=== PATIENT | female | born 1970 | race African-American/Black ===

== ENCOUNTER 2019-07-18 07:42 | Inpatient (IN) | payer OTHER, SELFPAY ==
[2019-07-18] VITALS (11 sets, daily range): BP systolic 109–130; BP diastolic 60–92; PULSE 74–86; RESP 18–60; TEMP 36.4–37.6; O2SAT 91–99; BMI 33.8
--- NOTE | ~2019-07-18 | XR_ITS ---
EXAMINATION: XR chest 1V portable DATE: 07/25/2019 06:15 INDICATION: Pneumonia TECHNIQUE: frontal view of the chest was obtained. COMPARISON: Chest radiograph dated 07/24/2019 FINDINGS: There appears be slight improvement in patchy bilateral airspace opacities throughout both lungs rela tively sparing the apices. No pleural effusion or pneumothorax. The cardiomediastinal silhouette is n ormal. Cholecystectomy clips in right upper quadrant. Additional postoperative change in left upper q uadrant, possibly sleeve gastrectomy. IMPRESSION: 1. Slight improvement in diffuse bilateral patchy airspace disease consistent with pneumonia. Reviewed, dictated and finalized at location A. IMPRESSION: 1. Slight improvement in diffuse bilateral patchy airspace disease consistent w ith pneumonia.
--- NOTE | ~2019-07-18 | XR_ITS ---
XR chest 1V portable 07/22/2019 07:33 Indication: Pneumonia. Cough and fever. Procedure: AP portable chest Comparison: Comparison to multiple prior studies sequentially, with oldest reviewed study dated 08/07. Findings: Heart size normal. There has been progression of diffuse bilateral airspace disease. No ple ural effusion or pneumothorax. No acute osseous abnormality. Impression: 1: Progression of diffuse bilateral airspace disease, consistent with pneumonia. Reviewed, dictated and finalized at location A. Impression: 1: Progression of diffuse bilateral airspace disease, consistent with pneumonia .
--- NOTE | ~2019-07-18 | XR_ITS ---
EXAMINATION: XR chest 1V portable DATE: 07/18/2019 08:16 INDICATION: Shortness of breath TECHNIQUE: frontal view of the chest was obtained. COMPARISON: Chest radiograph dated 08/07/[address] abdomen and pelvis dated 06/27/2018 FINDINGS: Scattered bilateral patchy airspace opacities with perihilar and lower lung predominance. No pleural effusion or pneumothorax. The cardiomediastinal silhouette is normal. Cholecystectomy clips in the ri ght upper quadrant. Additional surgical clips in the epigastric region likely related to prior sleeve gastrectomy. IMPRESSION: 1. Bilateral lung disease which could represent pulmonary edema, pneumonia, atelectasis or some combi nation thereof. Reviewed, dictated and finalized at location A. IMPRESSION: 1. Bilateral lung disease which could represent pulmonary edema, pneumonia, ate lectasis or some combination thereof.
--- NOTE | ~2019-07-18 | XR_ITS ---
EXAMINATION: XR chest 1V portable DATE: 07/24/2019 05:58 INDICATION: COVID-19 pneumonia. TECHNIQUE: A single frontal view of the chest was obtained. COMPARISON: Chest single view 07/23/2019 FINDINGS: There are patchy airspace opacities throughout the lungs bilaterally. No pleural effusion o r pneumothorax. The heart size is normal. There are surgical clips in the abdomen. IMPRESSION: 1. Diffuse lung disease with slight worsening, consistent with pneumonia versus acute respiratory dis tress syndrome (ARDS). Reviewed, dictated and finalized at location A. IMPRESSION: 1. Diffuse lung disease with slight worsening, consistent with pneumonia versus acute respiratory distress syndrome (ARDS).
--- NOTE | ~2019-07-18 | XR_ITS ---
EXAMINATION: XR chest 1V portable DATE: 07/21/2019 10:40 INDICATION: COVID-19 pneumonia. Shortness of breath, cough, and fever. TECHNIQUE: A single frontal view of the chest was obtained. COMPARISON: Chest single view 07/18/2019, chest CT 07/18/2019 FINDINGS: There are patchy airspace opacities involving all lung zones bilaterally. No pleural effusi on or pneumothorax. The heart size is normal. There are surgical clips in the abdomen. IMPRESSION: 1. Worsened diffuse lung disease, consistent with pneumonia. Reviewed, dictated and finalized at location A.
--- NOTE | ~2019-07-18 | XR_ITS ---
EXAMINATION: XR chest 1V portable DATE: 07/28/2019 06:02 INDICATION: COVID positive pneumonia. TECHNIQUE: frontal view of the chest was obtained. COMPARISON: Chest radiograph dated 07/26/2019 FINDINGS: No significant interval change in patchy bilateral airspace opacities throughout both lungs. No pleur al effusion or pneumothorax. The cardiomediastinal silhouette is normal. Surgical clips in the upper abdomen suggesting prior cholecystectomy and possible hiatal hernia repair. IMPRESSION: 1. Unchanged diffuse patchy bilateral airspace disease consistent with pneumonia, and/or pulmonary ed tashi. Reviewed, dictated and finalized at location A. IMPRESSION: 1. Unchanged diffuse patchy bilateral airspace disease consistent with pneumoni a, and/or pulmonary edema.
--- NOTE | ~2019-07-18 | CT_ITS ---
EXAMINATION: CTA chest PE protocol DATE: 07/18/2019 11:29 INDICATION: Shortness of breath, weakness, fever, chills, nausea and vomiting. TECHNIQUE: Computed tomography (CT) pulmonary angiogram of the chest was performed with 100 mL Omnipa que-350 intravenous contrast. Additional 3D reconstructions utilizing coronal maximum intensity proje ction (MIP) were performed. Automated exposure control and iterative reconstruction technique were em ployed. The dose-length product was 330.90 mGy-cm. COMPARISON: None FINDINGS: Good contrast opacification of the pulmonary arteries. There is mild streak artifact from dense contr ast in the superior vena cava and right atrium. Mild to moderate scattered respiratory motion artifac t most prominent at the lower lung zones where it results in decreased sensitivity in the segmental p ulmonary arteries and rendered evaluation of some of the smaller basilar subsegmental pulmonary arter ies essentially nondiagnostic. No pulmonary embolism. There are bilateral patchy groundglass opacitie s and consolidation throughout both lungs. No pleural effusion or pneumothorax. Heart size is normal. No pericardial effusion. Thoracic aorta is normal in caliber with no dissection. No pathologically e nlarged thoracic lymphadenopathy. Cholecystectomy clips in right upper quadrant. Incidentally noted a ccessory left hepatic artery arising from the left gastric artery. Postoperative change of prior slee ve gastrectomy. Bones are unremarkable. IMPRESSION: 1. No pulmonary embolism. Evaluation limited in the lower lobar segmental and more peripheral subsegm ental pulmonary arteries due to respiratory motion. 2. Bilateral patchy groundglass opacities and consolidation concerning for multifocal pneumonia. Appe arance would be typical for COVID-19. Reviewed, dictated and finalized at location A. IMPRESSION: 1. No pulmonary embolism. Evaluation limited in the lower lobar segmental and m ore peripheral subsegmental pulmonary arteries due to respiratory motion. 2. Bilateral patchy groundglass opacities and consolidation concerning for mult ifocal pneumonia. Appearance would be typical for COVID-19.
--- NOTE | ~2019-07-18 | XR_ITS ---
EXAMINATION: XR chest 1V portable DATE: 07/23/2019 08:16 INDICATION: COVID-19 pneumonia. TECHNIQUE: A single frontal view of the chest was obtained. COMPARISON: Chest single view 07/22/2019 FINDINGS: There are airspace opacities in all lung zones bilaterally. No pleural effusion or pneumoth orax. The heart size is normal. There are surgical clips in the abdomen. IMPRESSION: 1. Stable diffuse lung disease, consistent with pneumonia versus acute respiratory distress syndrome (ARDS). Reviewed, dictated and finalized at location A. IMPRESSION: 1. Stable diffuse lung disease, consistent with pneumonia versus acute respirat ory distress syndrome (ARDS).
--- NOTE | ~2019-07-18 | XR_ITS ---
XR chest 1V portable 07/26/2019 06:26 Indication: Pneumonia Procedure: AP portable chest Comparison: Comparison to multiple prior studies sequentially, with oldest reviewed study dated 07/21. Findings: Patchy diffuse bilateral airspace disease, unchanged. No significant pleural effusion or pn eumothorax. Heart size normal. No acute osseous abnormality. Impression: 1: Stable patchy bilateral airspace disease. Differential diagnosis includes edema, pneumonia and MO S. Reviewed, dictated and finalized at location A. Impression: 1: Stable patchy bilateral airspace disease. Differential diagnosis includes ed tashi, pneumonia and ARDS.
[2019-07-18 08:13] LABS: Basophils Percent Auto 0.2 % (0.2-1.2); Hematocrit 39.2 % (37.0-47.0); Hemoglobin 12.5 g/dL (12.0-15.0); Immature Granulocyte Absolute 0.03 K/mm3 (0.00-0.031); Immature Granulocyte Percent A 0.5 % (0-0.5); Lymphocytes Absolute Auto 0.69 K/mm3 (0.9-3.2); Lymphocytes Percent Auto 12.2 % (18.3-44.2); Mean Corpuscular HGB Conc 31.9 g/dl (32-36); Mean Corpuscular Hemoglobin 27.2 pg (26-34); Mean Corpuscular Volume 85.2 fl (80-100); Mean Platelet Volume 11.2 fl (7.4-10.4); Monocytes Absolute Auto 0.3 K/mm3 (0.1-0.6); Monocytes Percent Auto 4.4 % (2.6-8.5); Neutrophils Absolute Auto 4.7 K/mm3 (1.3-6.7); Neutrophils Percent Auto 82.7 % (45.5-73.1); Platelet Count Result 198 k/mm3 (150-375); Red Cell Distribution Width 13.7 % (11.5-14.5); White Blood Count 5.7 K/mm3 (4.5-10.0)
[2019-07-18 08:25] LABS: Blood Urea Nitrogen 14 mg/dL (7-17); Calcium 8.5 mg/dL (8.4-10.2); Carbon Dioxide 26 mmol/L (22-30); Chloride 105 mmol/L (98-107); Estimated Glomerular Filt Rate > 60; Glucose 110 mg/dL (65-105); Potassium 3.8 mmol/L (3.4-5.0); Sodium 137 mmol/L (137-145)
--- NOTE | 2019-07-18 08:45 | PC.NURSE ---
Patient reports she was seen at [facility] on [address] on 07/17/2019 and had COVID-19 test done. [facility] was called at this time and states that they do not have results yet. They expect results either late tonight or tomorrow (07/19/2019).
[2019-07-18] MEDS: ONDANSETRON INJ 4 MG/2 ML VIAL IV PUSH (09:04)
--- NOTE | 2019-07-18 09:12 | ECG_ITS ---
Measurements Intervals [place] Rate: 84 P: 49 W[place]: 156 QRS: 15 QRSD: 87 T: 17 QT: 348 QTc: 413 Interpretive Statements SINUS RHYTHM BASELINE WANDER- I, II, AVR, AVL, AVF, V4-V6 BORDERLINE ECG Electronically Signed On 07-18-2019 9:17:39 CDT by Andreas Lockwood D.O.
--- NOTE | 2019-07-18 10:05 | ED.GENADULT ---
HPI - General Adult General Chief complaint: Shortness of Breath/Dyspnea Stated complaint: SOB Time Seen by Provider: 07/18/19 07:47 Source: patient Mode of arrival: ambulatory Limitations: no limitations History of Present Illness HPI narrative: 48-year-old with no major medical problems here with complaints of shortness of breath, cough for past few days. Patient states that her daughter was diagnosed with COVID and she might have been exposed to COVID. Had outpatient testing done at [facility] yesterday. She denies any chest pain, nausea or vomiting. She states that she gets extremely short of breath with minimal walking. Onset (ago): day(s) Location: chest Radiation: non-radiation Severity: moderate Relieving factors: rest Exacerbating factors: movement Related Data Home Medications Medication Instructions Recorded Confirmed No Home Medications 07/18/19 07/18/19 Allergies Allergy/AdvReac Type Severity Reaction Status Date / Time No Known Allergies Allergy Verified 07/18/19 08:11 Review of Systems Review of Systems: All systems reviewed & are unremarkable except as noted in HPI and below Constitutional: Constitutional: Reports no additional constitutional complaints Eyes: Eyes: Reports no additional eye complaints ENT: Reports system reviewed and no additional complaints, except as documented Cardiovascular: Cardiovascular: Reports no additional cardiovascular complaints Respiratory: Respiratory: Reports as per HPI Gastrointestinal: Gastrointestinal: Reports no additional gastrointestinal complaints Musculoskeletal: Musculoskeletal: Reports no additional musculoskeletal complaints Integumentary/Breasts: Skin/Breast: Reports system reviewed and no additional complaints, except as docu Neurologic: Reports system reviewed and no additional complaints, except as documented Psychiatric: Psychiatric: Reports no additional psychiatric complaints PMFSH Social History Social History Gender identity (if verbalized by the patient): Female Exam Narrative: Exam Narrative: GENERAL: Well-appearing, well-nourished, and in no acute distress. HEAD: Normocephalic, atraumatic. EYES: PERRLA and EOMI. ENT: Nares clear, no rhinorrhea or epistaxis. Mucous membranes moist. NECK: Supple. CHEST: Tachypneic coarse breath sounds bilaterally. HEART: Regular rate and rhythm. No murmur heard. Normal peripheral pulses. ABDOMEN: Soft, nontender, nondistended, normal active bowel sounds. EXTREMITIES: Normal range of motion. No edema. SKIN: Warm, dry, no rash. NEURO: No focal deficits. Alert and oriented x3. PSYCH: Normal mood and affect. Course Course Emergency Course: Inform patient about her chest x-ray findings will admit her to the hospital. Await for call with results. Meanwhile I will start her on IV Zithromax. Vital Signs Vital signs: Vital Signs Temperature 37.5 C 07/18/19 07:47 Pulse Rate 82 07/18/19 07:47 Respiratory Rate 39 H 07/18/19 07:47 Blood Pressure 112/72 07/18/19 07:47 Pulse Oximetry 95 07/18/19 07:47 Temperature 37.6 C 07/18/19 09:09 Pulse Rate 80 07/18/19 09:09 Respiratory Rate 60 H 07/18/19 09:15 Blood Pressure 110/81 07/18/19 09:09 Pulse Oximetry 91 07/18/19 09:15 Medical Decision Making Vital Signs Vital Signs: Vital Signs Temperature 37.5 C 07/18/19 07:47 Pulse Rate 82 07/18/19 07:47 Respiratory Rate 39 H 07/18/19 07:47 Blood Pressure 112/72 07/18/19 07:47 Pulse Oximetry 95 07/18/19 07:47 Temperature 37.6 C 07/18/19 09:09 Pulse Rate 80 07/18/19 09:09 Respiratory Rate 60 H 07/18/19 09:15 Blood Pressure 110/81 07/18/19 09:09 Pulse Oximetry 91 07/18/19 09:15 Lab Data Result diagrams: 07/18/19 07:59 07/18/19 07:59 Labs: Lab Results 07/18/19 07/18/19 Range/Units 07:59 07:59 WBC 5.7 (4.5-10.0) K/mm3 RBC 4.60 (4.2-5.4) M/mm3 Hgb 12.5 (12.0-15.0) g/dL
[2019-07-18 10:45] LABS: D Dimer 1.29 ug/mL (<0.48)
--- NOTE | 2019-07-18 10:46 | PC.NURSE ---
Patient asleep in stretcher upon entering room for reassessment, she woke easily to verbal stimuli.
--- NOTE | 2019-07-18 11:17 | PC.NURSE ---
Patient to CT scan at this time.
[2019-07-18] MEDS: SODIUM CHLORIDE 0.9% IV 1,000 ML 125 ML IV CONT (11:50)
--- NOTE | 2019-07-18 11:52 | PC.NURSE ---
Infusion rate decreased due to patient discomfort, she is tolerating new rate well at this time.
--- NOTE | 2019-07-18 12:36 | ADMGEN ---
This patient, Melinda Belle, was admitted to Intensive Care Unit-5. Patient/family oriented to hospital policies and general routines including ID bracelet, bed and alarms, visiting hours, pain management, procedures, bathroom and other care routines, personal items, smoking policy, room service/diet, and visiting hours. Valuables list has been completed. Information on how to activate the Rapid Response Team has been discussed. Patient/Family are encouraged to report perceived risks to care and to ask questions if they do not understand what they are told or what they should do.
[2019-07-18 14:01] LABS: Lactate Dehydrogenase 1155 U/L (313-618)
--- NOTE | 2019-07-18 15:43 | PM.IMHP ---
H&P: HPI History of Present Illness Chief complaint: Pneumonia Narrative: Date and Time of History and Physical: July 18, 2019 at 3:15 p.m.. Date and Time of Admission Order: July 18, 2019 at 10:18 a.m.. Chief Complaint: Back pain, fever, cough, shortness of breath. History of Present Illness: Melinda Belle is a 48 year old female with no chronic health problems who presented to the emergency room with onset of illness beginning last Saturday, July 13, 2019. Patient reports she initially noted left low back pain along with dysuria. Two days later she developed cough along with shortness of breath and fever up to 102. She additionally had nausea. She reports she had 1 episode of vomiting last night. 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 Patient reports her daughter had been with her from , July 10, 2019, and recently tested positive for coronavirus. With patient having symptoms herself, she was tested at [facility] yesterday but does not know her coronavirus test results. Patient presented here with increasing shortness of breath with minimal activity. Cough is still present but not productive. No chest pain or chest pressure. In the emergency room, she was noted to be tachypneic as well as low oxygen saturation to 91% with minimal activity. Chest x-ray with bilateral lung disease. After my discussion with the emergency room physician, apparently D-dimer was checked in elevated with CTA chest ordered by ER physician with no pulmonary embolism but bilateral patchy ground-glass opacities and consolidation concerning for multifocal pneumonia. Given high risk for COVID infection, she was admitted for further evaluation and treatment. Review of Systems Review of Systems: All systems reviewed & are unremarkable except as noted in HPI and below Constitutional: Constitutional: Reports fatigue and Reports fever(s) Eyes: Eyes: Denies blurry vision and Denies diplopia ENT: Denies nasal congestion and Denies nasal discharge Cardiovascular: Cardiovascular: Denies chest pain, Denies lightheadedness and Denies palpitations Respiratory: Respiratory: Reports cough and Reports dyspnea Gastrointestinal: Gastrointestinal: Denies abdominal pain, Reports nausea and Denies vomiting Genitourinary: Genitourinary: Denies hematuria, Denies nocturia and Reports dysuria Musculoskeletal: Musculoskeletal: Reports back pain (left lumbar pain) Integumentary/Breasts: Skin/Breast: Denies rash Neurologic: Denies vertigo and Denies headache(s) Psychiatric: Psychiatric: Denies anxiety, Denies confusion and Denies depression Endocrine: Endocrine: Reports no additional endocrine complaints Hematologic/Lymphatic: Hematologic/Lymphatic: Reports no additional hematologic/lymphatic complaints Allergic/Immunologic: Allergic/Immunologic: Reports no additional allergic/immunologic complaints PMFSH Surgical History Surgical History Gastric bypass status for obesity Gastric Sleeve H/O: hysterectomy History of cholecystectomy Family History Family History Father No problems noted. Mother No problems noted. Daughter No problems noted. Social History Social History Social History: Patient is single. She does have to adult daughters. Never smoker. Occasional alcohol use. She is a full code. 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 Smoking status: Never smoker Alcohol intake: current Drinks per week: 3 Alcohol use details: Occasional alcohol Substance use: never Living arrangements: with family Occupation/Education: occupation Additional occupation/education comments: Dispatcher for [employer] Gender identity (if verbalized by the patient): Female Spiritual care concerns: No Agree to blood products: Yes Meds Home Medicat
[2019-07-18] MEDS: SODIUM CHLORIDE 0.9% IV 1,000 ML 75 ML IV CONT (23:43)
[2019-07-18] MEDS: MORPHINE SULFATE 4 MG/ML INJ IV PUSH (23:43)
[2019-07-19] VITALS (15 sets, daily range): BP systolic 119–134; BP diastolic 74–87; PULSE 81–98; RESP 20–36; TEMP 37.2–38; O2SAT 93–98
[2019-07-19 00:10] LABS: Add Urine Microscopic? YES; Appearance Urine Clear (Clear); Bacteria Urine Trace /hpf; Bilirubin Urine 1+ (Negative); Blood Urine Negative (Negative); Color Urine Yellow (Yellow); Glucose Urine UA Negative (Negative); Ketones Urine Trace mg/dL (Negative); Leukocyte Esterase Ur Negative LEU/UL (NEGATIVE); Mucus Urine Rare /lpf; Nitrate Urine Negative (Negative); Protein Urine 1+ mg/dL (Negative); RBC Urine 0-2 /hpf (0-2); Squamous Epithelial Cell Urine Occasional /hpf (Few); WBC Urine 0-3 /hpf (0-3)
[2019-07-19 01:46] LABS: Specific Grav Ur 1.045 (1.001-1.035)
[2019-07-19 03:36] LABS: Mean Corpuscular HGB Conc 32.4 g/dl (32-36); Mean Corpuscular Hemoglobin 27.5 pg (26-34); Mean Platelet Volume 10.7 fl (7.4-10.4); Platelet Count Result 209 k/mm3 (150-375); Red Cell Distribution Width 13.6 % (11.5-14.5); White Blood Count 4.3 K/mm3 (4.5-10.0)
[2019-07-19 03:51] LABS: Alanine Aminotransferase 25 U/L (4-35); Albumin Level 3.1 g/dL (3.5-5.1); Alkaline Phosphatase 79 U/L (38-126); Aspartate Amino Transferase 53 U/L (14-36); Bilirubin,Total 0.7 mg/dL (0.2-1.3); Blood Urea Nitrogen 10 mg/dL (7-17); CRP 7.6 mg/dL (<1.0); Calcium 7.6 mg/dL (8.4-10.2); Carbon Dioxide 23 mmol/L (22-30); Chloride 109 mmol/L (98-107); Creatine Kinase 80 U/L (30-135); Estimated Glomerular Filt Rate > 60; Glucose 97 mg/dL (65-105); Lactate Dehydrogenase 1269 U/L (313-618); Potassium 4.2 mmol/L (3.4-5.0); Sodium 136 mmol/L (137-145)
[2019-07-19] MEDS: PROMETHAZINE HCL 25 MG/ML AMPUL 12.5 MG IV PUSH (09:30)
[2019-07-19] MEDS: SODIUM CHLORIDE 0.9% IV 1,000 ML 75 ML IV CONT (11:48)
--- NOTE | 2019-07-19 12:27 | PM.IMPN ---
Progress Note: A&P Assessment and Plan (1) Pneumonia: Qualifiers: Laterality: bilateral Lung location: unspecified part of lung Pneumonia type: due to unspecified organism Qualified Code(s): J18.9 - Pneumonia, unspecified organism Code(s): J18.9 - Pneumonia, unspecified organism Status: Acute Assessment and Plan: Chest x-ray with bilateral airspace disease. CTA chest with ground-glass opacities bilaterally and consolidation consistent with multifocal pneumonia with findings consistent with COVID-19 infection. COVID-19 test results received from [facility] today and positive. IV azithromycin was given in the emergency room but will not continue with COVID-19 testing positive. Remains on IV ceftriaxone for other reasons. Now on 2 L oxygen. Continue albuterol HFA as needed. Add incentive spirometry. Continue isolation. Will continue other supportive care. Telemetry reviewed on 07/19/2019 with sinus rhythm. (2) COVID-19: Code(s): U07.1 - COVID-19 Status: Acute Assessment and Plan: Testing initiated at [facility] on 07/17/2019 with results now available and positive. Ferritin and LDH remain elevated but no significant increase from yesterday. CRP mildly elevated at 7.6 today. Will follow acute phase reactants periodically. Continue supportive care. (3) Dehydration: Code(s): E86.0 - Dehydration Status: Acute Assessment and Plan: Result of acute illness. Will continue IV fluids but at lower rate with COVID-19 infection. Continue to monitor. (4) Dysuria: Code(s): R30.0 - Dysuria Status: Acute Assessment and Plan: U/A more consistent with dehydration but will leave IV ceftriaxone in place while awaiting urine culture. (5) DVT prophylaxis: Code(s): Z29.9 - Encounter for prophylactic measures, unspecified Status: Acute Assessment and Plan: SCDs. Early ambulation. Time Spent With Patient Time with patient: 15 - 25 minutes Subjective Date/time seen: 07/19/19 12:27 Interval history: Date of Service: 07/19/2019. Admitted with pneumonia, COVID-19 infection, dehdyration. Complains of sore throat, difficulty swallowing, cough, shortness of breath and back pain today. Tired. Review of Systems Review of Systems: Narrative: Does not feel well. Constitutional: Constitutional: Reports fatigue and Reports fever(s) (low grade) ENT: Reports dysphagia and Reports sore throat Cardiovascular: Cardiovascular: Denies chest pain Respiratory: Respiratory: Reports cough and Reports dyspnea Gastrointestinal: Gastrointestinal: Denies abdominal pain, Denies nausea and Denies vomiting Genitourinary: Genitourinary: Denies dysuria Musculoskeletal: Musculoskeletal: Reports back pain Integumentary/Breasts: Skin/Breast: Denies rash Neurologic: Denies headache(s) Psychiatric: Psychiatric: Denies confusion Exam Narrative: Exam Narrative: Awake but appears tired today. Const: General: no acute distress HENMT: Mouth: Yes moist mucous membranes Neck: Neck: supple Lymphatic: lymphadenopathy not noted Resp: Auscultation: no rales, no wheezes and diminished lung sounds Cardio: Rate: regular rate Rhythm: regular rhythm GI: Inspection: non-distended GI Palp: Yes Soft to palpation and No Tenderness to palpation present (GI) Auscultation: normal bowel sounds Skin: General skin exam: no rashes or lesions noted Neuro: Cognition (Neuro): normal cognition Speech: normal speech Extrem: General: no edema Psych: Mental Status: mental status grossly normal Affect: normal affect Objective Data Vital Signs Vital Signs: Vital Signs - 24 hr 07/18/19 12:29 07/18/19 13:56 07/18/19 16:00 Temperature 98.2 F 98.6 F Pulse Rate 74 79 79 Respiratory Rate 18 20 Blood Pressure 121/82 120/76 Pulse Oximetry 97 96 07/18/19 17:49 07/18/19 20:00 07/19/19 00:00 Temperature 98.9 F 98.9 F Pulse Rate 86
[2019-07-20] VITALS (9 sets, daily range): BP systolic 97–133; BP diastolic 63–77; PULSE 79–106; RESP 21–38; TEMP 36.8–37.2; O2SAT 94–96
[2019-07-20 06:43] LABS: Hematocrit 38.1 % (37.0-47.0); Hemoglobin 12.6 g/dL (12.0-15.0); Mean Corpuscular HGB Conc 33.1 g/dl (32-36); Mean Corpuscular Hemoglobin 27.4 pg (26-34); Mean Corpuscular Volume 82.8 fl (80-100); Platelet Count Result 306 k/mm3 (150-375); Red Cell Distribution Width 13.5 % (11.5-14.5); White Blood Count 5.1 K/mm3 (4.5-10.0)
[2019-07-20 06:55] LABS: Alanine Aminotransferase 30 U/L (4-35); Albumin Level 3.5 g/dL (3.5-5.1); Alkaline Phosphatase 103 U/L (38-126); Aspartate Amino Transferase 65 U/L (14-36); Bilirubin,Total 0.8 mg/dL (0.2-1.3); Blood Urea Nitrogen 6 mg/dL (7-17); Calcium 8.2 mg/dL (8.4-10.2); Carbon Dioxide 26 mmol/L (22-30); Chloride 105 mmol/L (98-107); Estimated Glomerular Filt Rate > 60; Glucose 110 mg/dL (65-105); Potassium 3.7 mmol/L (3.4-5.0); Sodium 136 mmol/L (137-145)
--- NOTE | 2019-07-20 09:47 | PM.IMPN ---
Progress Note: A&P Assessment and Plan (1) Pneumonia: Qualifiers: Laterality: bilateral Lung location: unspecified part of lung Pneumonia type: due to unspecified organism Qualified Code(s): J18.9 - Pneumonia, unspecified organism Code(s): J18.9 - Pneumonia, unspecified organism Status: Acute Assessment and Plan: Chest x-ray with bilateral airspace disease. CTA chest with ground-glass opacities bilaterally and consolidation consistent with multifocal pneumonia with findings consistent with COVID-19 infection. COVID-19 test results received from [facility] on 07/19/2019 and positive. IV azithromycin was given in the emergency room but not continued with COVID-19 testing positive. Remains on IV ceftriaxone for urinary issues as noted below. Still requiring 2 L oxygen by nasal cannula but has not increased oxygen requirements. Continue albuterol HFA as needed. Patient is using incentive spirometer. Continue isolation. Telemetry removed on 07/20/2019 with sinus rhythm. Will move to medical floor as stable. (2) COVID-19: Code(s): U07.1 - COVID-19 Status: Acute Assessment and Plan: Testing initiated at [facility] on 07/17/2019 with results now available and positive. Ferritin and LDH remain elevated but no significant increase from admission. CRP mildly elevated at 7.6 on 07/19/2019. Will follow acute phase reactants periodically. Continue supportive care. (3) Dehydration: Code(s): E86.0 - Dehydration Status: Acute Assessment and Plan: Result of acute illness. Continues to improve. Will continue IV fluids but at lower rate with COVID-19 infection. Continue to monitor. (4) Dysuria: Code(s): R30.0 - Dysuria Status: Acute Assessment and Plan: U/A more consistent with dehydration but will leave IV ceftriaxone in place while awaiting urine culture results. (5) DVT prophylaxis: Code(s): Z29.9 - Encounter for prophylactic measures, unspecified Status: Acute Assessment and Plan: SCDs. Early ambulation. Time Spent With Patient Time with patient: 15 - 25 minutes Subjective Date/time seen: 07/20/19 09:47 Interval history: Date of Service: 07/20/2019. Admitted with pneumonia, COVID-19 infection, dehdyration. Feels a little bit better today. Still has sore throat, cough and shortness of breath. Still also has back pain. All symptoms are slightly better. No nausea or vomiting. Review of Systems Constitutional: Constitutional: Reports fatigue and Reports fever(s) (low grade yesterday but none so far today) ENT: Reports dysphagia and Reports sore throat Cardiovascular: Cardiovascular: Denies chest pain Respiratory: Respiratory: Reports cough and Reports dyspnea Gastrointestinal: Gastrointestinal: Denies abdominal pain, Reports dysphagia, Denies nausea and Denies vomiting Genitourinary: Genitourinary: Denies hematuria, Denies nocturia and Denies dysuria Musculoskeletal: Musculoskeletal: Reports back pain Integumentary/Breasts: Skin/Breast: Denies rash Neurologic: Denies headache(s) Psychiatric: Psychiatric: Denies confusion Exam Narrative: Exam Narrative: More awake today but still appears tired. Const: General: no acute distress HENMT: Mouth: Yes moist mucous membranes Neck: Neck: supple Lymphatic: lymphadenopathy not noted Resp: Auscultation: no rales, no wheezes and diminished lung sounds Cardio: Rate: regular rate Rhythm: regular rhythm GI: Inspection: non-distended GI Palp: Yes Soft to palpation and No Tenderness to palpation present (GI) Auscultation: normal bowel sounds : Other: not examined Skin: General skin exam: normal color Neuro: General: No confusion Cognition (Neuro): normal cognition Speech: normal speech Motor exam (neuro): Normal motor muscle tone present throughout Extrem: General: no edema Psych: Mental Status: mental status grossly normal Affe
--- NOTE | 2019-07-20 11:13 | PC.NURSE ---
This patient, Melinda Belle, was transferred to [ [facility] m/s] on 07/20/19 at 1113. Personal belongings sent with patient. Belongings list checked and signed with receiving [ ]. Report given to [katia membreno ]. Appropriate documentation sent with patient.
--- NOTE | 2019-07-20 11:38 | PC.NURSE ---
Addendum entered by Jaylyn Olson RN 07/20/19 14:15: patient received from ICU Original Note: This patient, Melinda Belle, was received from [ ] on 07/20/19 at 1055. Personal belongings list checked and signed. Patient/family oriented to unit policies and routines
[2019-07-20] MEDS: SODIUM CHLORIDE 0.9% IV 1,000 ML 75 ML IV CONT (13:40)
[2019-07-20] MEDS: ACETAMINOPHEN 325 MG TABLET 650 MG PO (17:43)
[2019-07-20] MEDS: MORPHINE SULFATE 4 MG/ML INJ IV PUSH (20:41)
[2019-07-21] VITALS (10 sets, daily range): BP systolic 135–160; BP diastolic 75–95; PULSE 85–96; RESP 16–28; TEMP 36.7–37.5; O2SAT 85–95
[2019-07-21] MEDS: SODIUM CHLORIDE 0.9% IV 1,000 ML 75 ML IV CONT (04:09)
[2019-07-21] MEDS: MORPHINE SULFATE 4 MG/ML INJ IV PUSH (04:10)
[2019-07-21] MEDS: ACETAMINOPHEN 325 MG TABLET 650 MG PO (05:59)
[2019-07-21 06:40] LABS: Blood Urea Nitrogen 7 mg/dL (7-17); Calcium 7.6 mg/dL (8.4-10.2); Carbon Dioxide 18 mmol/L (22-30); Chloride 107 mmol/L (98-107); Creatine Kinase 54 U/L (30-135); Estimated Glomerular Filt Rate > 60; Glucose 93 mg/dL (65-105); Lactate Dehydrogenase 1878 U/L (313-618); Potassium 4.4 mmol/L (3.4-5.0); Sodium 133 mmol/L (137-145)
[2019-07-21 08:02] LABS: CRP 26.1 mg/dL (<1.0)
[2019-07-21 10:42] LABS: Basophils Percent Auto 0.2 % (0.2-1.2); Eosinophils Percent Auto 0.1 % (0-4.4); Hematocrit 36.5 % (37.0-47.0); Hemoglobin 11.9 g/dL (12.0-15.0); Immature Granulocyte Absolute 0.12 K/mm3 (0.00-0.031); Immature Granulocyte Percent A 1.4 % (0-0.5); Lymphocytes Absolute Auto 0.74 K/mm3 (0.9-3.2); Lymphocytes Percent Auto 8.9 % (18.3-44.2); Mean Corpuscular HGB Conc 32.6 g/dl (32-36); Mean Corpuscular Hemoglobin 27.3 pg (26-34); Mean Corpuscular Volume 83.7 fl (80-100); Mean Platelet Volume 10.2 fl (7.4-10.4); Monocytes Absolute Auto 0.4 K/mm3 (0.1-0.6); Neutrophils Percent Auto 84.4 % (45.5-73.1); Platelet Count Result 332 k/mm3 (150-375); Red Blood Count 4.36 M/mm3 (4.2-5.4); Red Cell Distribution Width 13.5 % (11.5-14.5); White Blood Count 8.3 K/mm3 (4.5-10.0)
[2019-07-21 10:55] LABS: Alanine Aminotransferase 25 U/L (4-35); Albumin Level 3.2 g/dL (3.5-5.1); Alkaline Phosphatase 98 U/L (38-126); Aspartate Amino Transferase 46 U/L (14-36); Bilirubin,Total 0.8 mg/dL (0.2-1.3); Blood Urea Nitrogen 7 mg/dL (7-17); Calcium 8.2 mg/dL (8.4-10.2); Carbon Dioxide 25 mmol/L (22-30); Chloride 106 mmol/L (98-107); Estimated Glomerular Filt Rate > 60; Glucose 107 mg/dL (65-105); Sodium 136 mmol/L (137-145)
[2019-07-21 11:20] LABS: Potassium 3.7 mmol/L (3.4-5.0)
[2019-07-21] MEDS: ENOXAPARIN 80 MG/0.8 ML SYRINGE SUB-Q (11:51)
--- NOTE | 2019-07-21 17:04 | PM.IMPN ---
Progress Note: A&P Assessment and Plan (1) Pneumonia: Qualifiers: Laterality: bilateral Lung location: unspecified part of lung Pneumonia type: due to unspecified organism Qualified Code(s): J18.9 - Pneumonia, unspecified organism Code(s): J18.9 - Pneumonia, unspecified organism Status: Acute Assessment and Plan: Chest x-ray with bilateral airspace disease. CTA chest with ground-glass opacities bilaterally and consolidation consistent with multifocal pneumonia with findings consistent with COVID-19 infection. COVID-19 test results received from [facility] on 07/19/2019 and positive. IV azithromycin was given in the emergency room but not continued with COVID-19 testing positive. Remains on IV ceftriaxone for urinary issues as noted below. Still requiring 2 L oxygen by nasal cannula but has not increased oxygen requirements. Continue albuterol HFA as needed. Patient is using incentive spirometer. Continue isolation. Telemetry removed on 07/20/2019 with sinus rhythm. Will move to medical floor as stable. Date of Service: 07/20/2019. Admitted with pneumonia, COVID-19 infection, dehdyration. Today patient complains of cough shortness of breath and chills repeat x-ray shows worsening pneumonia, however saturation is 93% on room air see has a low-grade fever and 99 will add his home eye seen with Lisandra will continue to monitor and provide supportive care (2) COVID-19: Code(s): U07.1 - COVID-19 Status: Acute Assessment and Plan: Testing initiated at [facility] on 07/17/2019 with results now available and positive. Ferritin and LDH remain elevated but no significant increase from admission. CRP mildly elevated at 7.6 on 07/19/2019. Will follow acute phase reactants periodically. Continue supportive care. (3) Dehydration: Code(s): E86.0 - Dehydration Status: Acute Assessment and Plan: Result of acute illness. Continues to improve. Will continue IV fluids but at lower rate with COVID-19 infection. Continue to monitor. (4) Dysuria: Code(s): R30.0 - Dysuria Status: Acute Assessment and Plan: U/A more consistent with dehydration but will leave IV ceftriaxone in place while awaiting urine culture results. (5) DVT prophylaxis: Code(s): Z29.9 - Encounter for prophylactic measures, unspecified Status: Acute Assessment and Plan: Patient has a mildly elevated D-dimer and lymphopenia patient started on Lovenox 1 milligram/kilogram q.day Subjective Date/time seen: 07/21/19 17:04 Interval history: Date of Service: 07/20/2019. Admitted with pneumonia, COVID-19 infection, dehdyration. Today patient complains of cough shortness of breath and chills repeat x-ray shows worsening pneumonia, however saturation is 93% on room air see has a low-grade fever and 99 will add his home eye seen with Rocyee will continue to monitor and provide supportive care Review of Systems Review of Systems: All systems reviewed & are unremarkable except as noted in HPI and below Exam Narrative: Exam Narrative: Patient was seen in the room but not examine she appears clinically stable, temperature is 99.1? pulse is 96 respiratory 22 pulse ox is 93% on room air a blood pressure is 136/96 Const: General: comfortable and no acute distress HENMT: General nose exam: Normal nares present Neck: Other: No retraction Resp: Effort & Inspection: normal respiratory effort Skin: General skin exam: normal color Neuro: Speech: normal speech Extrem: General: normal to inspection Psych: Affect: Anxious affect present Objective Data Vital Signs Vital Signs: Vital Signs - 24 hr 07/20/19 20:00 07/20/19 20:45 07/21/19 02:00 Temperature 98.6 F 99.2 F Pulse Rate 86 88 90 Respiratory Rate 26 H 24 H 24 H Blood Pressure 122/72 135/75 Pulse Oximetry 96 94 07/21/19 06:00 07/21/19 08:00 07/21/19 08:44 Temperature 99.5 F 98.0 F Pulse
[2019-07-21] MEDS: PROMETHAZINE HCL 25 MG/ML AMPUL 12.5 MG IV PUSH (20:24)
[2019-07-22] VITALS (16 sets, daily range): BP systolic 130–168; BP diastolic 87–105; PULSE 87–100; RESP 22–44; TEMP 36.9–37.8; O2SAT 90–96
[2019-07-22] MEDS: MORPHINE SULFATE 4 MG/ML INJ IV PUSH ×5 (02:40→20:17)
[2019-07-22] MEDS: SODIUM CHLORIDE 0.9% IV 1,000 ML 75 ML IV CONT (02:42)
[2019-07-22 06:08] LABS: Basophils Percent Auto 0.3 % (0.2-1.2); Eosinophils Percent Auto 0.1 % (0-4.4); Hematocrit 34.9 % (37.0-47.0); Hemoglobin 11.3 g/dL (12.0-15.0); Immature Granulocyte Absolute 0.29 K/mm3 (0.00-0.031); Immature Granulocyte Percent A 3.8 % (0-0.5); Lymphocytes Absolute Auto 0.85 K/mm3 (0.9-3.2); Mean Corpuscular HGB Conc 32.4 g/dl (32-36); Mean Corpuscular Volume 83.5 fl (80-100); Monocytes Absolute Auto 0.3 K/mm3 (0.1-0.6); Monocytes Percent Auto 3.8 % (2.6-8.5); Neutrophils Absolute Auto 6.3 K/mm3 (1.3-6.7); Platelet Count Result 388 k/mm3 (150-375); Red Blood Count 4.18 M/mm3 (4.2-5.4); Red Cell Distribution Width 13.4 % (11.5-14.5); White Blood Count 7.7 K/mm3 (4.5-10.0)
[2019-07-22 06:25] LABS: Alanine Aminotransferase 21 U/L (4-35); Alkaline Phosphatase 100 U/L (38-126); Aspartate Amino Transferase 41 U/L (14-36); Bilirubin,Total 0.7 mg/dL (0.2-1.3); Blood Urea Nitrogen 7 mg/dL (7-17); Calcium 7.7 mg/dL (8.4-10.2); Carbon Dioxide 25 mmol/L (22-30); Chloride 107 mmol/L (98-107); Estimated Glomerular Filt Rate > 60; Glucose 97 mg/dL (65-105); Potassium 3.7 mmol/L (3.4-5.0); Sodium 136 mmol/L (137-145)
--- NOTE | 2019-07-22 10:07 | ECG_ITS ---
Measurements Intervals [place] Rate: 91 P: 61 AR: 153 QRS: 28 QRSD: 84 T: 36 QT: 355 QTc: 438 Interpretive Statements SINUS RHYTHM NORMAL ECG Electronically Signed On 07-22-2019 10:28:54 CDT by Andreas Lockwood D.O.
[2019-07-22 10:36] LABS: Base Excess ABG -0.1 mEq/l (+/-2.0); Device NASAL CANNULA; Fractional Inspired Oxygen 28 %; HCO3 ABG 23.3 mEq/l (22.0-26.0); Modified Allen's Test Pass; Oxygen Content ABG 14.6 %vol (16.0-22.0); Oxygen Saturation ABG 90.4 % (95.0-100.0); Oxyhemoglobin 89.6 % THb (90.0-100.0); PCO2 ABG 33.7 mmHg (35.0-45.0); PO2 ABG 54.9 mmHg (80.0-100.0); PO2 FiO2 Ratio Arterial Blood 1.96 %; Site Drawn LEFT RADIAL; Total Hemoglobin 11.6 g/dL (12.0-18.0); pH ABG 7.458 (7.350-7.450)
[2019-07-22] MEDS: ENOXAPARIN 80 MG/0.8 ML SYRINGE SUB-Q (10:37)
[2019-07-22] MEDS: HYDROXYCHLOROQUINE SULFATE 200 MG TABLET 400 MG PO (13:00)
[2019-07-22] MEDS: PROMETHAZINE HCL 25 MG/ML AMPUL 12.5 MG IV PUSH (13:03)
[2019-07-22] MEDS: ALPRAZOLAM 0.25 MG TABLET PO (15:08)
--- NOTE | 2019-07-22 16:34 | PM.IMPN ---
Progress Note: A&P Assessment and Plan (1) Pneumonia: Qualifiers: Laterality: bilateral Lung location: unspecified part of lung Pneumonia type: due to unspecified organism Qualified Code(s): J18.9 - Pneumonia, unspecified organism Code(s): J18.9 - Pneumonia, unspecified organism Status: Acute Assessment and Plan: Chest x-ray with bilateral airspace disease. CTA chest with ground-glass opacities bilaterally and consolidation consistent with multifocal pneumonia with findings consistent with COVID-19 infection. COVID-19 test results received from [facility] on 07/19/2019 and positive. IV azithromycin was given in the emergency room but not continued with COVID-19 testing positive. Remains on IV ceftriaxone for urinary issues as noted below. Still requiring 2 L oxygen by nasal cannula but has not increased oxygen requirements. Continue albuterol HFA as needed. Patient is using incentive spirometer. Continue isolation. Telemetry removed on 07/20/2019 with sinus rhythm. Will move to medical floor as stable. Date of Service: 07/22/2019. Admitted with pneumonia, COVID-19 infection, dehdyration. Today patient still complains of cough shortness of breath and chills repeat x-ray again today shows worsening pneumonia, today patient appears more anxious and agitated, wants to go home however saturation is 96% on 4L she has a low-grade fever and 99 will added Rocephin and azithromycin to cover for secondary bacterial infection, will continue to monitor and provide supportive care, will give a low-dose of Xanax to keep the patient clam, I spoke with the patient her room and she agrees with plan, will continue to monitor (2) COVID-19: Code(s): U07.1 - COVID-19 Status: Acute Assessment and Plan: Testing initiated at [facility] on 07/17/2019 with results now available and positive. Ferritin and LDH remain elevated but no significant increase from admission. CRP mildly elevated at 7.6 on 07/19/2019. Will follow acute phase reactants periodically. Continue supportive care. (3) Dehydration: Code(s): E86.0 - Dehydration Status: Acute Assessment and Plan: Result of acute illness. Continues to improve. Will continue IV fluids but at lower rate with COVID-19 infection. Continue to monitor. (4) Dysuria: Code(s): R30.0 - Dysuria Status: Acute Assessment and Plan: U/A more consistent with dehydration but will leave IV ceftriaxone in place while awaiting urine culture results. (5) DVT prophylaxis: Code(s): Z29.9 - Encounter for prophylactic measures, unspecified Status: Acute Assessment and Plan: Patient has a mildly elevated D-dimer and lymphopenia patient started on Lovenox 1 milligram/kilogram q.day Subjective Date/time seen: 07/22/19 16:34 Interval history: Date of Service: 07/22/2019. Admitted with pneumonia, COVID-19 infection, dehdyration. Today patient still complains of cough shortness of breath and chills repeat x-ray again today shows worsening pneumonia, today patient appears more anxious and agitated, wants to go home however saturation is 96% on 4L she has a low-grade fever and 99 will added Rocephin and azithromycin to cover for secondary bacterial infection, will continue to monitor and provide supportive care, will give a low-dose of Xanax to keep the patient clam, I spoke with the patient her room and she agrees with plan Review of Systems Review of Systems: All systems reviewed & are unremarkable except as noted in HPI and below Exam Narrative: Exam Narrative: Patient was seen in the room but not examine she appears clinically stable more anxious today, temperature is 98.6 pulse is 100, respiratory is 44 however patient is quite anxious, pulse ox is 96% on a blood pressure is 157/105 Const: General: comfortable and no acute distress; No confusion Orientation/consciousness: No confusion HENMT: General nos
[2019-07-22] MEDS: hydrALAZINE 10 MG TABLET PO (17:18)
--- NOTE | 2019-07-22 17:27 | PC.NURSE ---
PRN Albuterol treatment offered to patient and patient refused breathing treatment.
[2019-07-22] MEDS: ACETAMINOPHEN 325 MG TABLET 650 MG PO (18:49)
[2019-07-22 23:37] LABS: Lactate Dehydrogenase 1384 U/L (313-618)
[2019-07-23] VITALS (13 sets, daily range): BP systolic 143–160; BP diastolic 91–100; PULSE 84–107; RESP 18–24; TEMP 36.8–37.5; O2SAT 90–94
[2019-07-23] MEDS: SODIUM CHLORIDE 0.9% IV 1,000 ML 75 ML IV CONT ×2 (01:57→16:35)
[2019-07-23] MEDS: MORPHINE SULFATE 4 MG/ML INJ IV PUSH ×2 (01:58→06:11)
[2019-07-23 06:10] LABS: Basophils Percent Auto 0.3 % (0.2-1.2); Eosinophils Percent Auto 0.5 % (0-4.4); Hematocrit 34.1 % (37.0-47.0); Hemoglobin 11.3 g/dL (12.0-15.0); Immature Granulocyte Absolute 0.22 K/mm3 (0.00-0.031); Immature Granulocyte Percent A 3.7 % (0-0.5); Lymphocytes Absolute Auto 0.78 K/mm3 (0.9-3.2); Mean Corpuscular HGB Conc 33.1 g/dl (32-36); Mean Corpuscular Hemoglobin 27.4 pg (26-34); Mean Corpuscular Volume 82.8 fl (80-100); Mean Platelet Volume 9.7 fl (7.4-10.4); Monocytes Absolute Auto 0.3 K/mm3 (0.1-0.6); Monocytes Percent Auto 4.5 % (2.6-8.5); Neutrophils Absolute Auto 4.7 K/mm3 (1.3-6.7); Platelet Count Result 439 k/mm3 (150-375); Red Blood Count 4.12 M/mm3 (4.2-5.4); Red Cell Distribution Width 13.4 % (11.5-14.5)
[2019-07-23 06:12] LABS: Alanine Aminotransferase 25 U/L (4-35); Albumin Level 3.1 g/dL (3.5-5.1); Alkaline Phosphatase 93 U/L (38-126); Aspartate Amino Transferase 47 U/L (14-36); Bilirubin,Total 0.7 mg/dL (0.2-1.3); Blood Urea Nitrogen 6 mg/dL (7-17); Calcium 7.8 mg/dL (8.4-10.2); Carbon Dioxide 25 mmol/L (22-30); Chloride 106 mmol/L (98-107); Estimated Glomerular Filt Rate > 60; Glucose 101 mg/dL (65-105); Lactate Dehydrogenase 1473 U/L (313-618); Potassium 3.5 mmol/L (3.4-5.0); Sodium 136 mmol/L (137-145)
[2019-07-23 06:15] LABS: D Dimer 2.82 ug/mL (<0.48)
[2019-07-23 07:58] LABS: CRP 21.9 mg/dL (<1.0)
[2019-07-23] MEDS: ENOXAPARIN 80 MG/0.8 ML SYRINGE SUB-Q (10:00)
--- NOTE | 2019-07-23 14:08 | PM.IMPN ---
Progress Note: A&P Assessment and Plan (1) Pneumonia: Qualifiers: Laterality: bilateral Lung location: unspecified part of lung Pneumonia type: due to unspecified organism Qualified Code(s): J18.9 - Pneumonia, unspecified organism Code(s): J18.9 - Pneumonia, unspecified organism Status: Acute Assessment and Plan: Chest x-ray with bilateral airspace disease. CTA chest with ground-glass opacities bilaterally and consolidation consistent with multifocal pneumonia with findings consistent with COVID-19 infection. COVID-19 test results received from [facility] on 07/19/2019 and positive. IV azithromycin was given in the emergency room but not continued with COVID-19 testing positive. Remains on IV ceftriaxone for urinary issues as noted below. Still requiring 2 L oxygen by nasal cannula but has not increased oxygen requirements. Continue albuterol HFA as needed. Patient is using incentive spirometer. Continue isolation. Telemetry removed on 07/20/2019 with sinus rhythm. Will move to medical floor as stable. 07/23/19 14:08 Admitted with pneumonia, COVID-19 infection, dehdyration. on 07/20 patient still complained of cough shortness of breath and chills repeat x-ray again showed worsening pneumonia, on 07/21 patient appears more anxious and agitated, wants to go home however saturation is 96% on 4L she has a low-grade fever and 99 added Rocephin and azithromycin to cover for secondary bacterial infection, today patient is more calm, not as anxious, there is a slight increase in her D-dimer but CRP is trending down as well lymphpcytes low but stable, chest x-ray stable does not show any worsening, respiratory status is also improving, patient still has low-grade fever, will continue to monitor and provide supportive care, will give a low-dose of Xanax to keep the patient clam, I spoke with the patient her room and she agrees with plan (2) COVID-19: Code(s): U07.1 - COVID-19 Status: Acute Assessment and Plan: Testing initiated at [facility] on 07/17/2019 with results now available and positive. Ferritin and LDH remain elevated but no significant increase from admission. CRP mildly elevated at 7.6 on 07/19/2019. Will follow acute phase reactants periodically. Continue supportive care. (3) Dehydration: Code(s): E86.0 - Dehydration Status: Acute Assessment and Plan: Result of acute illness. Continues to improve. Will continue IV fluids but at lower rate with COVID-19 infection. Continue to monitor. (4) Dysuria: Code(s): R30.0 - Dysuria Status: Acute Assessment and Plan: U/A more consistent with dehydration but will leave IV ceftriaxone in place while awaiting urine culture results. (5) DVT prophylaxis: Code(s): Z29.9 - Encounter for prophylactic measures, unspecified Status: Acute Assessment and Plan: Patient has a mildly elevated D-dimer and lymphopenia patient started on Lovenox 1 milligram/kilogram q.day Subjective Date/time seen: 07/23/19 14:08 Admitted with pneumonia, COVID-19 infection, dehdyration. on 07/20 patient still complained of cough shortness of breath and chills repeat x-ray again showed worsening pneumonia, on 07/21 patient appears more anxious and agitated, wants to go home however saturation is 96% on 4L she has a low-grade fever and 99 added Rocephin and azithromycin to cover for secondary bacterial infection, today patient is more calm, not as anxious, there is a slight increase in her D-dimer but CRP is trending down as well lymphpcytes low but stable, chest x-ray stable does not show any worsening, respiratory status is also improving, patient still has low-grade fever, will continue to monitor and provide supportive care, will give a low-dose of Xanax to keep the patient clam, I spoke with the patient her room and she agrees with plan Review of Systems Review of Systems: All systems reviewed & a
[2019-07-23] MEDS: ALPRAZOLAM 0.25 MG TABLET PO (16:49)
[2019-07-23 18:19] LABS: D Dimer 2.34 ug/mL (<0.48)
[2019-07-24] VITALS (19 sets, daily range): BP systolic 143–167; BP diastolic 84–103; PULSE 92–104; RESP 20–48; TEMP 36.9–38; O2SAT 92–98
[2019-07-24] MEDS: MORPHINE SULFATE 4 MG/ML INJ IV PUSH (00:44)
[2019-07-24 08:52] LABS: Basophils Percent Auto 0.3 % (0.2-1.2); Eosinophils Absolute Auto 0.1 K/mm3 (0-0.3); Eosinophils Percent Auto 0.9 % (0-4.4); Hematocrit 33.8 % (37.0-47.0); Hemoglobin 11.2 g/dL (12.0-15.0); Immature Granulocyte Absolute 0.36 K/mm3 (0.00-0.031); Immature Granulocyte Percent A 4.7 % (0-0.5); Immature Platelet Fraction Pct 2.8 % (0.9-11.2); Lymphocytes Absolute Auto 0.74 K/mm3 (0.9-3.2); Lymphocytes Percent Auto 9.6 % (18.3-44.2); Mean Corpuscular HGB Conc 33.1 g/dl (32-36); Mean Corpuscular Hemoglobin 27.3 pg (26-34); Mean Corpuscular Volume 82.2 fl (80-100); Mean Platelet Volume 9.8 fl (7.4-10.4); Monocytes Absolute Auto 0.4 K/mm3 (0.1-0.6); Monocytes Percent Auto 5.7 % (2.6-8.5); Neutrophils Absolute Auto 6.1 K/mm3 (1.3-6.7); Neutrophils Percent Auto 78.8 % (45.5-73.1); Platelet Count Result 469 k/mm3 (150-375); Red Blood Count 4.11 M/mm3 (4.2-5.4); Red Cell Distribution Width 13.2 % (11.5-14.5); White Blood Count 7.7 K/mm3 (4.5-10.0)
[2019-07-24 09:02] LABS: Potassium 3.9 mmol/L (3.4-5.0)
[2019-07-24 09:29] LABS: Alanine Aminotransferase 29 U/L (4-35); Albumin Level 3.1 g/dL (3.5-5.1); Alkaline Phosphatase 93 U/L (38-126); Aspartate Amino Transferase 52 U/L (14-36); Bilirubin,Total 0.9 mg/dL (0.2-1.3); Blood Urea Nitrogen 5 mg/dL (7-17); CRP 24.6 mg/dL (<1.0); Calcium 7.9 mg/dL (8.4-10.2); Carbon Dioxide 24 mmol/L (22-30); Chloride 105 mmol/L (98-107); Estimated Glomerular Filt Rate > 60; Glucose 97 mg/dL (65-105); Lactate Dehydrogenase 1522 U/L (313-618); Sodium 135 mmol/L (137-145)
[2019-07-24] MEDS: ACETAMINOPHEN 325 MG TABLET 650 MG PO ×2 (09:58→18:37)
[2019-07-24] MEDS: SODIUM CHLORIDE 0.9% IV 1,000 ML 75 ML IV CONT (09:59)
[2019-07-24] MEDS: ENOXAPARIN 80 MG/0.8 ML SYRINGE SUB-Q (09:59)
--- NOTE | 2019-07-24 15:06 | WPDINFPN2 ---
Progress Note: A&P Assessment and Plan (1) COVID-19: Code(s): U07.1 - COVID-19 Status: Acute Assessment and Plan: 1. CoVid19 viral pneumonia 2. Abn UA, no infection REC Remdesivir will not be available for several weeks at earliest. No further antibacterials. Lab monitoring with transferrin/LDH/d-dimer not necessary, CRP is sufficient. Will follow periodically but not daily. Subjective Date/time seen: 07/24/19 15:06 Objective Data Vital Signs Vital Signs: Vital Signs - 24 hr 07/23/19 16:00 07/23/19 18:06 07/23/19 20:00 Temperature 37.5 C Pulse Rate 102 H 104 H 106 H Respiratory Rate 24 H Blood Pressure 150/92 H Pulse Oximetry 92 07/23/19 22:00 07/24/19 00:00 07/24/19 02:00 Temperature 37.4 C 37.9 C H Pulse Rate 100 95 104 H Respiratory Rate 20 22 H Blood Pressure 160/100 H 167/103 H Pulse Oximetry 94 94 07/24/19 04:00 07/24/19 06:00 07/24/19 08:00 Temperature 37.4 C Pulse Rate 96 92 100 Respiratory Rate 20 Blood Pressure 143/87 H Pulse Oximetry 98 07/24/19 09:55 07/24/19 09:58 07/24/19 10:32 Temperature 38.0 C H 38.0 C H Pulse Rate 104 H Respiratory Rate 48 H 24 H Blood Pressure 147/85 H Pulse Oximetry 94 07/24/19 10:58 07/24/19 12:00 07/24/19 14:22 Temperature 37.3 C 36.9 C Pulse Rate 94 104 H Respiratory Rate 26 H Blood Pressure 157/88 H Pulse Oximetry 92 Intake/Output Intake/Output: Intake & Output 07/21/19 07/22/19 07/23/19 07/24/19 23:59 23:59 23:59 23:59 Intake Total 3270 1880 3130 2090 Output Total 700 1100 500 Balance 2570 1880 2030 1590 Meds/Results Medications: Active Medications Generic Name Dose Route Start Last Admin Trade Name Freq PRN Reason Stop Dose Admin Acetaminophen 650 mg 07/18/19 10:17 07/24/19 09:58 Tylenol Tablet PO 650 mg Q4H PRN Administration Mild Pain (1-3) or Fever Hydrocodone Bitart/Acetaminophen 1 tab 07/24/19 10:22 07/24/19 13:11 [place] 5-325 Mg PO 1 tab Q4H PRN Administration Pain Rated 4-6 Albuterol 2 puff 07/18/19 10:17 Proventil Hfa INHALATION QIDRT PRN Shortness Of Breath Alprazolam 0.25 mg 07/22/19 18:55 07/23/19 16:49 Xanax PO 0.25 mg TID PRN Administration Anxiety Enoxaparin Sodium 80 mg 07/21/19 10:00 07/24/19 09:59 Lovenox SUB-Q 80 mg Q24H MISBAH Administration Hydralazine HCl 10 mg 07/22/19 14:36 07/22/19 17:18 Apresoline Tablet PO 10 mg Q8H PRN Administration Blood Pressure - High Sodium Chloride 1,000 mls @ 75 mls/hr 07/18/19 10:20 07/24/19 09:59 Normal Saline Iv IV CONT 75 mls/hr .[id number] MISBAH Administration Promethazine HCl 12.5 mg 07/18/19 10:17 07/22/19 13:03 Phenergan Inj IV PUSH 12.5 mg Q6H PRN Administration Nausea Radiology Results: ITS Impressions Chest CTA 07/18/19 11:35 IMPRESSION: 1. No pulmonary embolism. Evaluation limited in the lower lobar segmental and more peripheral subsegmental pulmonary arteries due to respiratory motion. 2. Bilateral patchy groundglass opacities and consolidation concerning for multifocal pneumonia. Appearance would be typical for COVID-19. Chest X-Ray 07/24/19 06:41 IMPRESSION: 1. Diffuse lung disease with slight worsening, consistent with pneumonia versus acute respiratory distress syndrome (ARDS). Labs Labs: Laboratory Results - last 24 hr 07/23/19 07/24/19 07/24/19 18:00 08:42 08:42 WBC 7.7 RBC 4.11 L Hgb 11.2 L Hct 33.8 L MCV 82.2 MCH 27.3 MCHC 33.1 RDW 13.2 Plt Count 469 H MPV 9.8 Immature Gran % (Auto) 4.7 H Neut % (Auto) 78.8 H Lymph % (Auto) 9.6 L [place] % (Auto) 5.7 Eos % (Auto) 0.9 Baso % (Auto) 0.3 Lymph # (Auto) 0.74 L [place] # (Auto) 0.4 Eos # (Auto) 0.1 Baso # (Auto) 0.0 Abs Immat Gran (auto) 0.36 H Absolute Neuts (auto) 6.1 Absolute Nucleated RBC 0.0 Nucleated RBC % 0.0 % Immature Pl
--- NOTE | 2019-07-24 15:49 | PM.IMPN ---
Progress Note: A&P Assessment and Plan (1) Pneumonia: Qualifiers: Laterality: bilateral Lung location: unspecified part of lung Pneumonia type: due to unspecified organism Qualified Code(s): J18.9 - Pneumonia, unspecified organism Code(s): J18.9 - Pneumonia, unspecified organism Status: Acute Assessment and Plan: Chest x-ray with bilateral airspace disease. CTA chest with ground-glass opacities bilaterally and consolidation consistent with multifocal pneumonia with findings consistent with COVID-19 infection. COVID-19 test results received from [facility] on 07/19/2019 and positive. IV azithromycin was given in the emergency room but not continued with COVID-19 testing positive. Remains on IV ceftriaxone for urinary issues as noted below. Still requiring 2 L oxygen by nasal cannula but has not increased oxygen requirements. Continue albuterol HFA as needed. Patient is using incentive spirometer. Continue isolation. Telemetry removed on 07/20/2019 with sinus rhythm. Will move to medical floor as stable. 07/23/19 14:08 Admitted with pneumonia, COVID-19 infection, dehdyration. on 07/20 patient still complained of cough shortness of breath and chills repeat x-ray again showed worsening pneumonia, on 07/21 patient appears more anxious and agitated, wants to go home however saturation is 96% on 4L she had a low-grade fever 99 added Rocephin and azithromycin to cover for secondary bacterial infection, today patient is more calm, not as anxious, patient does have fever, patient was seen Dr Diego and stopped Rocephin and azithromycin recommended supportive care also recommended Remdesivir will not be available for several weeks at earliest Also called [facility] and they are not transferring COVID-19 and research study is still in preminary stage, also spoke with patient mother gave her updats. also spoke Arlet Orta nurse manager post and gave her updates, will continue to monitor provide supportive care. Dr. Diego is recommended to monitor CRP daily no need to monitor D-dimer ferritin or LDH on daily basis (2) COVID-19: Code(s): U07.1 - COVID-19 Status: Acute Assessment and Plan: Testing initiated at [facility] on 07/17/2019 with results now available and positive. Ferritin and LDH remain elevated but no significant increase from admission. CRP mildly elevated at 7.6 on 07/19/2019. Will follow acute phase reactants periodically. Continue supportive care. (3) Dehydration: Code(s): E86.0 - Dehydration Status: Acute Assessment and Plan: Result of acute illness. Continues to improve. Will continue IV fluids but at lower rate with COVID-19 infection. Continue to monitor. (4) Dysuria: Code(s): R30.0 - Dysuria Status: Acute Assessment and Plan: U/A more consistent with dehydration and urine culture did not grow any bacteria antibiotics stopped. (5) DVT prophylaxis: Code(s): Z29.9 - Encounter for prophylactic measures, unspecified Status: Acute Assessment and Plan: Patient has a mildly elevated D-dimer and lymphopenia patient started on Lovenox 1 milligram/kilogram q.day Subjective Date/time seen: 07/24/19 15:49 Interval history: 07/23/19 14:08 Admitted with pneumonia, COVID-19 infection, dehdyration. on 07/20 patient still complained of cough shortness of breath and chills repeat x-ray again showed worsening pneumonia, on 07/21 patient appears more anxious and agitated, wanted to go home however saturation was 96% on 4L she had a low-grade fever 99 added Rocephin and azithromycin to cover for secondary bacterial infection, today patient is more calm, not as anxious, patient does have fever, patient was seen Dr Diego and stopped Rocephin and azithromycin recommended supportive care also recommended Remdesivir will not be available for several weeks at earliest Also called [facility] and they are not transferring COVID-19 and research study is
--- NOTE | 2019-07-24 16:05 | CONS_ITS ---
DATE OF CONSULTATION: 07/24/2019 REASON FOR CONSULTATION: Worsening lung infiltrates. HISTORY OF PRESENT ILLNESS: The patient is a 48-year-old female who denies any chronic medical illnesses. She presented to the hospital on July 17 with 5 days of dysuria and back pain, followed by fever up to 38.9, cough, shortness of breath, and vomiting. The patient had been exposed 3 days prior to her symptoms to her daughter who was later diagnosed with Mena virus. Here, she was tachypneic and had 91% saturation. The patient had been tested prior to admission and this test has come back positive. While here, the patient had more shortness of breath, parasternal chest discomfort when she takes a deep breath and has anxious sensation when ambulating to the bathroom and back. Her cough is slightly more productive than earlier. She has not required any surgical intervention. She has received, while here, ceftriaxone and azithromycin. ALLERGIES: NONE KNOWN. PRESENT MEDICATIONS: List reviewed. No immunosuppressants. HABITS: Occasional alcohol. No tobacco. PAST MEDICAL HISTORY: Previous gastric bypass, hysterectomy, cholecystectomy. No chronic medical illnesses. FAMILY HISTORY: Not pertinent to her present illness. 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 REVIEW OF SYSTEMS: , constitutional, respiratory, skin, musculoskeletal, endocrine otherwise negative. PHYSICAL EXAMINATION: GENERAL: This is a middle-aged female who appears mildly dyspneic. VITAL SIGNS: She was afebrile on admission, katia the following day up to 38.0, three days later up to 37.8 and today up to 38.0; 157/88, 104, 26, 92% on 4 L. She has been as low as 90% on 4 L and 2 L. SKIN: Warm and dry. No rashes. EENT: The conjunctivae are normal. Mucous membranes well hydrated. NECK: No stridor, masses, thyromegaly, meningismus. LUNGS: She has bilateral rales detention up both lung swanson. No wheezes or rhonchi. Clear to percussion. CARDIAC: Tachycardic, regular. No gallops, rubs, murmurs. ABDOMEN: Mildly obese, nontender. No mass. No organomegaly. EXTREMITIES: Without clubbing, cyanosis, edema. No venous varicosities. LABORATORY DATA: Blood cultures, no growth on final. Urine culture final, no growth. White blood cell count 4.3 on admission, has been normal since then. Hemoglobin 11.2, which is stable. Platelets are 469, which is higher. Differential with a left shift. Her D-dimer elevated. Blood gases from 2 days ago, 7.46, 34, 55, 23, 90% on 2 L. Chemistry notable for mild hyponatremia, high ferritin, LDH, CRP 22, albumin 3.1. Urinalysis reviewed. RADIOLOGY DATA: I personally reviewed her chest x-rays, shows bilateral multilobar fluffy infiltrates, no effusions, normal heart size. I reviewed the radiologist's reading. The CT scan obtained upon admission showed no pulmonary embolism and bilateral ground-glass opacities and consolidation. ASSESSMENT: 1. Fever, dyspnea, lung infiltrates due to COVID-19 viral pneumonia. She has no bacterial superinfection at this time. Other viral causes are also unlikely. 2. Dysuria, urine culture negative and urine infection is unlikely. 3. Anemia. RECOMMENDATIONS: 1. Remdesivir will not be available for several weeks at a minimum. No other experimental therapy is proving beneficial nor off-label therapy. Would not use corticosteroids. 2. Supportive care underway and discussed with the patient. 3. Stop antibacterials. Thank you very much for asking me to see her. We will follow up periodically. HONORIO ALFORD M.D. SALES DIRECTOR SALES DIRECTOR D I
[2019-07-24] MEDS: ALPRAZOLAM 0.25 MG TABLET PO (18:38)
[2019-07-25] VITALS (15 sets, daily range): BP systolic 142–162; BP diastolic 77–98; PULSE 87–110; RESP 20–36; TEMP 36.7–37.5; O2SAT 92–97; BMI 75.9; BMI 34.4; BMI 34.6
[2019-07-25] MEDS: ENOXAPARIN 80 MG/0.8 ML SYRINGE SUB-Q (09:47)
[2019-07-25 10:06] LABS: Basophils Percent Auto 0.2 % (0.2-1.2); Eosinophils Absolute Auto 0.1 K/mm3 (0-0.3); Eosinophils Percent Auto 1.2 % (0-4.4); Hematocrit 34.1 % (37.0-47.0); Hemoglobin 11.4 g/dL (12.0-15.0); Immature Granulocyte Absolute 0.37 K/mm3 (0.00-0.031); Immature Granulocyte Percent A 4.1 % (0-0.5); Lymphocytes Absolute Auto 0.67 K/mm3 (0.9-3.2); Lymphocytes Percent Auto 7.3 % (18.3-44.2); Mean Corpuscular HGB Conc 33.4 g/dl (32-36); Mean Corpuscular Hemoglobin 27.7 pg (26-34); Mean Platelet Volume 9.6 fl (7.4-10.4); Monocytes Absolute Auto 0.4 K/mm3 (0.1-0.6); Monocytes Percent Auto 4.5 % (2.6-8.5); Neutrophils Absolute Auto 7.6 K/mm3 (1.3-6.7); Neutrophils Percent Auto 82.7 % (45.5-73.1); Platelet Count Result 545 k/mm3 (150-375); Red Blood Count 4.11 M/mm3 (4.2-5.4); Red Cell Distribution Width 13.1 % (11.5-14.5); White Blood Count 9.1 K/mm3 (4.5-10.0)
[2019-07-25 10:24] LABS: Alanine Aminotransferase 30 U/L (4-35); Albumin Level 3.2 g/dL (3.5-5.1); Alkaline Phosphatase 112 U/L (38-126); Aspartate Amino Transferase 50 U/L (14-36); Bilirubin,Total 0.8 mg/dL (0.2-1.3); Blood Urea Nitrogen 6 mg/dL (7-17); Calcium 8.1 mg/dL (8.4-10.2); Carbon Dioxide 26 mmol/L (22-30); Chloride 103 mmol/L (98-107); Estimated Glomerular Filt Rate > 60; Glucose 122 mg/dL (65-105); Potassium 2.9 mmol/L (3.4-5.0); Sodium 136 mmol/L (137-145)
[2019-07-25] MEDS: CALCIUM CARBONATE (TUMS) 500 MG (200 MG ELEMENTAL) PO (11:26)
[2019-07-25] MEDS: PROMETHAZINE HCL 25 MG/ML AMPUL 12.5 MG IV PUSH (11:26)
[2019-07-25 12:06] LABS: CRP 33.9 mg/dL (<1.0)
[2019-07-25] MEDS: SODIUM CHLORIDE 0.9% IV 1,000 ML 75 ML IV CONT (13:59)
--- NOTE | 2019-07-25 14:42 | PM.IMPN ---
Progress Note: A&P Assessment and Plan (1) Pneumonia: Qualifiers: Laterality: bilateral Lung location: unspecified part of lung Pneumonia type: due to unspecified organism Qualified Code(s): J18.9 - Pneumonia, unspecified organism Code(s): J18.9 - Pneumonia, unspecified organism Status: Acute Assessment and Plan: -----due to COVID-19. Continue supportive treatment such as supplemental oxygen, MDI albuterol (which I will schedule), pulse oximetry, and I will stop the fluids as these patients do benefit from being on the chip drier side. I talked to the patient about laying on her stomach from time to time as there is some evidence in the prone position. (2) COVID-19: Code(s): U07.1 - COVID-19 Status: Acute Assessment and Plan: -----markers such as CRP, LDH, and D-dimer are trending up. The patient appears stable at this time and does not have any hypoxia although she does have elevated respiratory rate. We will watch her closely. No need for ICU or intubation at this time. Chest x-ray appears a bit better. (3) Dehydration: Code(s): E86.0 - Dehydration Status: Acute Assessment and Plan: -----resolved. IV fluids stopped (4) Dysuria: Code(s): R30.0 - Dysuria Status: Acute Assessment and Plan: -----resolved. UA negative. No further treatment (5) DVT prophylaxis: Code(s): Z29.9 - Encounter for prophylactic measures, unspecified Status: Acute Assessment and Plan: -----continue Lovenox Time Spent With Patient Time with patient: 25 - 35 minutes Subjective Date/time seen: 07/25/19 14:42 Interval history: Pt is a 48-year-old female here for COVID-19. Patient was seen today and states that she feels like she is panting like a dog and has some chest pain when she breathes in deeply. She does not have any shortness of breath at this time and she has been using this spirometer. She understands the need for incentive spirometer and will continue to work with that. She is eating and drinking fine without any diarrhea or vomiting. She does have a little nausea at this time and did have some heartburn today and requested sometimes. Review of Systems Review of Systems: All systems reviewed & are unremarkable except as noted in HPI and below Exam Narrative: Exam Narrative: General: Well developed well nourished patient resting comfortably in bed in NAD HEENT: normocephalic Neck: supple Neuro: Alert and oriented x4 CV:RRR Resp elevated respiratory rate without conversational dyspnea or retraction. Her lung sounds are Clear to auscultation Abd: Soft, non distended. No pain to palpation. Positive bowel sounds Extremities: No swelling, erythema, or pain to palpation. Objective Data Vital Signs Vital Signs: Vital Signs - 24 hr 07/24/19 16:00 07/24/19 18:00 07/24/19 18:03 Temperature 100.3 F H Pulse Rate 97 102 H Respiratory Rate 28 H Blood Pressure 154/97 H Pulse Oximetry 93 93 07/24/19 18:37 07/24/19 19:37 07/24/19 20:00 Temperature 100.3 F H 98.7 F Pulse Rate 102 H Respiratory Rate Blood Pressure Pulse Oximetry 07/24/19 22:00 07/24/19 23:10 07/25/19 00:00 Temperature 98.7 F Pulse Rate 96 96 Respiratory Rate 34 H 28 H Blood Pressure 151/84 H Pulse Oximetry 96 07/25/19 03:00 07/25/19 04:00 07/25/19 06:00 Temperature 99.5 F 99.1 F Pulse Rate 97 87 101 H Respiratory Rate 34 H 32 H Blood Pressure 142/84 H 153/87 H Pulse Oximetry 92 95 07/25/19 08:00 07/25/19 10:00 07/25/19 11:40 Temperature 98.5 F Pulse Rate 97 100 Respiratory Rate 36 H Blood Pressure 150/81 H Pulse Oximetry 94 94 93 07/25/19 12:00 Temperature Pulse Rate 95 Respiratory Rate Blood Pressure Pulse Oximetry Intake/Output Intake/Output: Intake & Output 07/22/19 07/23/19 07/24/19 07/25/19 23:59 23:59 23:59 23:59 Intake Total 587
--- NOTE | 2019-07-25 15:14 | PCDIET ---
Nutrition Assessment Complete: Inadequate oral intake R/T poor appetite as evidence by PO average intake of 28% over four meals. PO intake of 50% or greater to meet needs Goal:New goal Pt current nutrition is Regular. Nutrition recommendation: Agree Last recorded weight is 77.7 kg. Labs Reviewed: Ferritin 312, C-Reactive 33.9 Additional Notes: Recommend MTV w/o iron due to gastric bypass and reduce absorption ability of vitamins/minerals. Recommend short term high dose Vitamin C at 100mg/kg body wt per day (7700mg/day) due to inflammation noted by ferritin at 312 and C reactive at 33.9. Agree with regular diet. Providing Enlive BID to help meet needs with poor appetite. Ensure Enlive provides 350kcal, 20g of protein, and 26 essential vitamins and minerals per serving. Following PO intake, wt, labs, vitamin/mineral supplementation every five days
[2019-07-25] MEDS: POTASSIUM CHLORIDE 20 MEQ TABLET 40 MEQ PO (15:19)
[2019-07-25] MEDS: hydrALAZINE 10 MG TABLET PO (17:16)
[2019-07-25] MEDS: ALPRAZOLAM 0.25 MG TABLET PO (17:53)
[2019-07-25] MEDS: SODIUM CHLORIDE NASAL GEL 14.1 GM 1 APPLIC NASAL (21:28)
[2019-07-25] MEDS: POTASSIUM CHLORIDE 20 MEQ TABLET PO (21:28)
--- NOTE | 2019-07-25 21:57 | ECG_ITS ---
Measurements Intervals [place] Rate: 92 P: 52 MI: 153 QRS: 14 QRSD: 86 T: 21 QT: 350 QTc: 435 Interpretive Statements SINUS RHYTHM VOLTAGE CRITERIA FOR LVH BORDERLINE ECG Electronically Signed On 07-26-2019 7:18:08 CDT by Andreas Lockwood D.O.
[2019-07-25] MEDS: LORAZEPAM INJ 2 MG/ML VIAL 0.5 MG IV PUSH (23:18)
[2019-07-26] VITALS (16 sets, daily range): BP systolic 142–151; BP diastolic 84–94; PULSE 89–125; RESP 16–24; TEMP 36.8–37.8; O2SAT 91–97
[2019-07-26] MEDS: ACETAMINOPHEN 325 MG TABLET 650 MG PO (06:29)
[2019-07-26] MEDS: PROMETHAZINE HCL 25 MG/ML AMPUL 12.5 MG IV PUSH (06:29)
[2019-07-26 07:10] LABS: Basophils Percent Auto 0.1 % (0.2-1.2); Eosinophils Absolute Auto 0.1 K/mm3 (0-0.3); Eosinophils Percent Auto 1.7 % (0-4.4); Hemoglobin 11.5 g/dL (12.0-15.0); Immature Granulocyte Absolute 0.32 K/mm3 (0.00-0.031); Immature Granulocyte Percent A 4.1 % (0-0.5); Lymphocytes Absolute Auto 0.69 K/mm3 (0.9-3.2); Lymphocytes Percent Auto 8.8 % (18.3-44.2); Mean Corpuscular HGB Conc 34.8 g/dl (32-36); Mean Corpuscular Hemoglobin 28.8 pg (26-34); Mean Corpuscular Volume 82.7 fl (80-100); Mean Platelet Volume 9.7 fl (7.4-10.4); Monocytes Absolute Auto 0.6 K/mm3 (0.1-0.6); Monocytes Percent Auto 7.6 % (2.6-8.5); Neutrophils Absolute Auto 6.1 K/mm3 (1.3-6.7); Neutrophils Percent Auto 77.7 % (45.5-73.1); Platelet Count Result 644 k/mm3 (150-375); Red Blood Count 3.99 M/mm3 (4.2-5.4); Red Cell Distribution Width 13.2 % (11.5-14.5); White Blood Count 7.8 K/mm3 (4.5-10.0)
[2019-07-26 07:35] LABS: Alanine Aminotransferase 27 U/L (4-35); Albumin Level 3.1 g/dL (3.5-5.1); Alkaline Phosphatase 115 U/L (38-126); Aspartate Amino Transferase 47 U/L (14-36); Bilirubin,Total 0.8 mg/dL (0.2-1.3); Blood Urea Nitrogen 8 mg/dL (7-17); Carbon Dioxide 26 mmol/L (22-30); Chloride 103 mmol/L (98-107); Estimated Glomerular Filt Rate > 60; Glucose 98 mg/dL (65-105); Potassium 3.2 mmol/L (3.4-5.0); Sodium 136 mmol/L (137-145)
[2019-07-26] MEDS: ENOXAPARIN 40 MG/0.4 ML SYRINGE SUB-Q (08:18)
[2019-07-26] MEDS: POTASSIUM CHLORIDE 20 MEQ TABLET 40 MEQ PO (08:28)
[2019-07-26] MEDS: ALBUTEROL SULFATE (*SP) AEROSOL 1 PUFF 2 PUFF INHALATION ×4 (08:52→20:01)
[2019-07-26 09:04] LABS: CRP 29.6 mg/dL (<1.0)
--- NOTE | 2019-07-26 11:11 | PM.IMPN ---
Progress Note: A&P Assessment and Plan (1) Pneumonia: Qualifiers: Laterality: bilateral Lung location: unspecified part of lung Pneumonia type: due to unspecified organism Qualified Code(s): J18.9 - Pneumonia, unspecified organism Code(s): J18.9 - Pneumonia, unspecified organism Status: Acute Assessment and Plan: -----due to COVID-19. Continue supportive treatment such as supplemental oxygen, MDI albuterol, and pulse oximetry. Chest x-ray shows stable disease and CRP down a bit. She was tachycardic earlier today but that has improved. Respiratory rate still high but better. Because of her significant pleuritic pain, I am going to give her a few doses of IV Toradol. She does have a gastric bypass so we will not use these long-term, but I think this will help her pain and will be able to take deeper breaths with this. I also talked to the patient about laying on her stomach from time to time as there is some evidence in the prone position. (2) COVID-19: Code(s): U07.1 - COVID-19 Status: Acute Assessment and Plan: -----CRP, LDH, and D-dimer are elevated. CRP trending down. Respiratory rate up but no hypoxia on current oxygen setting. No need for ICU or intubation at this time but will monitor closely. Chest x-ray reviewed (3) Dehydration: Code(s): E86.0 - Dehydration Status: Acute Assessment and Plan: -----resolved. IV fluids stopped (4) Dysuria: Code(s): R30.0 - Dysuria Status: Acute Assessment and Plan: -----resolved. UA negative. No further treatment (5) DVT prophylaxis: Code(s): Z29.9 - Encounter for prophylactic measures, unspecified Status: Acute Assessment and Plan: -----continue Lovenox Subjective Date/time seen: 07/26/19 11:11 Interval history: Pt is a 48-year-old female here for COVID-19. Patient was seen today and states that she is having stabbing like chest pain. She said this comes and goes and occurs pretty often. It is worse when she takes deep breaths or coughs. It is reproducible. She is eating and drinking okay this morning and denies any nausea, vomiting, diarrhea or constipation. She said her breathing is about the same and has not gotten any better or worse. Exam Narrative: Exam Narrative: General: Well developed well nourished patient resting comfortably in bed in NAD HEENT: normocephalic Neck: supple Neuro: Alert and oriented x4 CV:RRR heart rate 90 on exam and on telemetry. She has intermittent sinus tachycardia noted on tele. Reducible chest pain at the midline and right sternal border. Resp elevated respiratory rate without conversational dyspnea or retraction. She has shallow breaths but clear. Abd: Soft, non distended. No pain to palpation. Positive bowel sounds Extremities: No swelling, erythema, or pain to palpation. Objective Data Vital Signs Vital Signs: Vital Signs - 24 hr 07/25/19 11:40 07/25/19 12:00 07/25/19 14:00 Temperature 98.4 F Pulse Rate 95 98 Respiratory Rate 22 H Blood Pressure 144/77 H Pulse Oximetry 93 94 07/25/19 16:00 07/25/19 18:00 07/25/19 18:13 Temperature 98.0 F Pulse Rate 108 H 110 H Respiratory Rate 34 H Blood Pressure 162/97 H Pulse Oximetry 95 93 07/25/19 20:00 07/25/19 20:40 07/25/19 22:00 Temperature 98.3 F Pulse Rate 94 96 Respiratory Rate 20 Blood Pressure 144/98 H Pulse Oximetry 92 97 07/26/19 00:00 07/26/19 02:00 07/26/19 04:00 Temperature 99.1 F Pulse Rate 94 101 H 105 H Respiratory Rate 18 Blood Pressure 147/84 H Pulse Oximetry 97 07/26/19 06:00 07/26/19 06:29 07/26/19 08:00 Temperature 100.0 F H 100 F H Pulse Rate 113 H 125 H Respiratory Rate 24 H Blood Pressure 151/94 H Pulse Oximetry 96 07/26/19 08:53 Temperature Pulse Rate Respiratory Rate Blood Pressure Pulse Oximetry 92 Intake/Output Intake/Output: In
[2019-07-26] MEDS: KETOROLAC 30 MG/ML VIAL (*BKC) IM (12:08)
[2019-07-26] MEDS: ALPRAZOLAM 0.25 MG TABLET PO (20:45)
[2019-07-26] MEDS: SODIUM CHLORIDE NASAL GEL 14.1 GM 1 APPLIC NASAL (20:48)
[2019-07-27] VITALS (15 sets, daily range): BP systolic 132–149; BP diastolic 74–99; PULSE 92–111; RESP 16–22; TEMP 36.9–37.5; O2SAT 92–97
[2019-07-27] MEDS: ALPRAZOLAM 0.25 MG TABLET PO ×3 (05:20→21:15)
[2019-07-27 06:18] LABS: Basophils Percent Auto 0.3 % (0.2-1.2); Eosinophils Absolute Auto 0.1 K/mm3 (0-0.3); Hematocrit 32.4 % (37.0-47.0); Hemoglobin 10.6 g/dL (12.0-15.0); Immature Granulocyte Absolute 0.16 K/mm3 (0.00-0.031); Immature Granulocyte Percent A 2.5 % (0-0.5); Lymphocytes Absolute Auto 0.85 K/mm3 (0.9-3.2); Lymphocytes Percent Auto 13.1 % (18.3-44.2); Mean Corpuscular HGB Conc 32.7 g/dl (32-36); Mean Corpuscular Hemoglobin 27.5 pg (26-34); Mean Corpuscular Volume 84.2 fl (80-100); Mean Platelet Volume 9.5 fl (7.4-10.4); Monocytes Absolute Auto 0.5 K/mm3 (0.1-0.6); Monocytes Percent Auto 8.3 % (2.6-8.5); Neutrophils Absolute Auto 4.8 K/mm3 (1.3-6.7); Neutrophils Percent Auto 73.8 % (45.5-73.1); Platelet Count Result 648 k/mm3 (150-375); Red Blood Count 3.85 M/mm3 (4.2-5.4); Red Cell Distribution Width 13.2 % (11.5-14.5); White Blood Count 6.5 K/mm3 (4.5-10.0)
[2019-07-27 06:42] LABS: Alanine Aminotransferase 30 U/L (4-35); Alkaline Phosphatase 120 U/L (38-126); Aspartate Amino Transferase 64 U/L (14-36); Bilirubin,Total 0.7 mg/dL (0.2-1.3); Blood Urea Nitrogen 10 mg/dL (7-17); Calcium 7.6 mg/dL (8.4-10.2); Carbon Dioxide 27 mmol/L (22-30); Chloride 103 mmol/L (98-107); Estimated Glomerular Filt Rate > 60; Glucose 107 mg/dL (65-105); Potassium 3.1 mmol/L (3.4-5.0); Sodium 136 mmol/L (137-145)
[2019-07-27 06:55] LABS: CRP 18.8 mg/dL (<1.0)
[2019-07-27] MEDS: ALBUTEROL SULFATE (*SP) AEROSOL 1 PUFF 2 PUFF INHALATION ×4 (08:03→20:18)
[2019-07-27] MEDS: ENOXAPARIN 40 MG/0.4 ML SYRINGE SUB-Q (09:37)
[2019-07-27] MEDS: POTASSIUM CHLORIDE 20 MEQ TABLET 40 MEQ PO ×2 (09:37→17:00)
[2019-07-27] MEDS: MAGNESIUM OXIDE 200 MG TABLET PO ×2 (12:13→20:53)
--- NOTE | 2019-07-27 12:55 | PC.NURSE ---
Patient offered a Tums to alleviate complaints of indigestion pain. Patient refuses at this time.
--- NOTE | 2019-07-27 14:32 | PM.IMPN ---
Progress Note: A&P Assessment and Plan (1) Pneumonia: Qualifiers: Laterality: bilateral Lung location: unspecified part of lung Pneumonia type: due to unspecified organism Qualified Code(s): J18.9 - Pneumonia, unspecified organism Code(s): J18.9 - Pneumonia, unspecified organism Status: Acute Assessment and Plan: -----due to COVID-19. Continue supportive treatment such as supplemental oxygen, MDI albuterol, and pulse oximetry. We discussed that she needs to be taking deeper breaths and improve a little more before she can go home. I have suggested she use the pillow to hug it while she uses the spirometer so she can open up her lungs. I also asked her to get out of bed although she feels unmotiviated to do so. I have increased her ayr frequency to help with her nasal dryness. Chest x-ray shows stable disease and CRP down a bit. Will re-draw CRP, ferratain, ddimer, and LDH tomorrow. Will obtain a new CXR tomorrow. She has slight tachycardia 2/2 to lung disease. ACS seems less likely as her CP is completely reproducable. Continue PRN ketorlac. She does have a gastric bypass so we will not use these long-term, but I think this will help her pain and will be able to take deeper breaths with this. I also talked to the patient about laying on her stomach from time to time as there is some evidence in the prone position. (2) COVID-19: Code(s): U07.1 - COVID-19 Status: Acute Assessment and Plan: -----CRP, LDH, and D-dimer are elevated. CRP trending down. Respiratory rate up but no hypoxia on current oxygen setting. No need for ICU or intubation at this time but will monitor closely. Chest x-ray reviewed (3) Dehydration: Code(s): E86.0 - Dehydration Status: Acute Assessment and Plan: -----resolved. IV fluids stopped (4) Dysuria: Code(s): R30.0 - Dysuria Status: Acute Assessment and Plan: -----resolved. UA negative. No further treatment (5) DVT prophylaxis: Code(s): Z29.9 - Encounter for prophylactic measures, unspecified Status: Acute Assessment and Plan: -----continue Lovenox (6) Constipation: Code(s): K59.00 - Constipation, unspecified Status: Acute Assessment and Plan: -----will schedule miralax and senna. monitor. She needs to get up and move to help her bowels move. (7) Hypokalemia: Code(s): E87.6 - Hypokalemia Status: Acute Assessment and Plan: -----persistent. potassium has been given but pt does not like this and says she wont take more. I talked to her about IV and liquid and she said she will try to do the pill again. Mag added today. Subjective Date/time seen: 07/27/19 14:32 Interval history: Pt is a 48-year-old female here for COVID-19. Patient was seen today and is feeling discouraged. She says she is tired of being sick and uncomfortable. I talked to her about her refusing some of the medications that may help her and I explained to her how they specifically help. We also talked about her stabbing chest pain that is intermittent. She said the ketorolac helped but then the pain came back. We talked about holding a pillow to her chest when she coughs or takes deep breaths to help with the pain. She is feeling SOB and cannot take a deep breath because of the pain. She has not had a BM while being here and barely as been out of bed. I suggested that she open the window shade to try and lift her spirits. Exam Narrative: Exam Narrative: General: Well developed well nourished patient resting comfortably in bed in [facility] HEENT: normocephalic Neck: supple Neuro: Alert and oriented x4 CV:RRR heart rate 103on exam and on telemetry. She has intermittent sinus tachycardia noted on tele. Reducible chest pain at the midline and right sternal border. Resp elevated respiratory rate without conversational dyspnea or retraction. She has shallow kalpana
[2019-07-27] MEDS: KETOROLAC 30 MG/ML VIAL (*BKC) IM (14:40)
[2019-07-27] MEDS: polyethylene glycoL 3350 17 GM POWD.PACK PO (14:40)
[2019-07-27] MEDS: PANTOPRAZOLE SOD SESQUIHYDRATE 20 MG TAB PO (14:40)
[2019-07-27] MEDS: PROMETHAZINE HCL 25 MG/ML AMPUL 12.5 MG IV PUSH (19:33)
[2019-07-27] MEDS: SENNA/DOCUSATE SODIUM TABLET 1 TAB PO (20:53)
[2019-07-27] MEDS: SODIUM CHLORIDE NASAL GEL 14.1 GM 1 APPLIC NASAL (21:12)
[2019-07-28] VITALS (14 sets, daily range): BP systolic 140–152; BP diastolic 82–95; PULSE 91–110; RESP 18–32; TEMP 36.4–37.3; O2SAT 90–100
[2019-07-28 05:57] LABS: Basophils Percent Auto 0.3 % (0.2-1.2); Eosinophils Absolute Auto 0.1 K/mm3 (0-0.3); Eosinophils Percent Auto 1.9 % (0-4.4); Hematocrit 32.4 % (37.0-47.0); Hemoglobin 10.5 g/dL (12.0-15.0); Immature Granulocyte Absolute 0.15 K/mm3 (0.00-0.031); Immature Granulocyte Percent A 2.6 % (0-0.5); Lymphocytes Percent Auto 18.8 % (18.3-44.2); Mean Corpuscular HGB Conc 32.4 g/dl (32-36); Mean Corpuscular Hemoglobin 27.1 pg (26-34); Mean Corpuscular Volume 83.7 fl (80-100); Mean Platelet Volume 9.3 fl (7.4-10.4); Monocytes Absolute Auto 0.5 K/mm3 (0.1-0.6); Monocytes Percent Auto 8.9 % (2.6-8.5); Neutrophils Percent Auto 67.5 % (45.5-73.1); Platelet Count Result 721 k/mm3 (150-375); Red Blood Count 3.87 M/mm3 (4.2-5.4); Red Cell Distribution Width 13.2 % (11.5-14.5); White Blood Count 5.9 K/mm3 (4.5-10.0)
[2019-07-28 06:01] LABS: D Dimer 2.98 ug/mL (<0.48)
[2019-07-28 06:10] LABS: Alanine Aminotransferase 37 U/L (4-35); Albumin Level 3.1 g/dL (3.5-5.1); Alkaline Phosphatase 133 U/L (38-126); Aspartate Amino Transferase 69 U/L (14-36); Bilirubin,Total 0.5 mg/dL (0.2-1.3); Blood Urea Nitrogen 9 mg/dL (7-17); Calcium 8.1 mg/dL (8.4-10.2); Carbon Dioxide 28 mmol/L (22-30); Chloride 106 mmol/L (98-107); Estimated Glomerular Filt Rate > 60; Glucose 98 mg/dL (65-105); Lactate Dehydrogenase 1190 U/L (313-618); Potassium 3.7 mmol/L (3.4-5.0); Sodium 137 mmol/L (137-145)
[2019-07-28 06:24] LABS: CRP 11.8 mg/dL (<1.0)
[2019-07-28] MEDS: ALBUTEROL SULFATE (*SP) AEROSOL 1 PUFF 2 PUFF INHALATION ×4 (08:25→20:34)
[2019-07-28] MEDS: ENOXAPARIN 40 MG/0.4 ML SYRINGE SUB-Q (09:00)
[2019-07-28] MEDS: PANTOPRAZOLE SOD SESQUIHYDRATE 20 MG TAB PO (09:01)
[2019-07-28] MEDS: SODIUM CHLORIDE NASAL GEL 14.1 GM 1 APPLIC NASAL ×2 (09:01→20:35)
[2019-07-28] MEDS: MAGNESIUM OXIDE 200 MG TABLET PO ×2 (09:01→20:35)
[2019-07-28] MEDS: ALPRAZOLAM 0.25 MG TABLET PO (11:16)
--- NOTE | 2019-07-28 13:59 | PM.IMPN ---
Progress Note: A&P Assessment and Plan (1) Pneumonia: Qualifiers: Laterality: bilateral Lung location: unspecified part of lung Pneumonia type: due to unspecified organism Qualified Code(s): J18.9 - Pneumonia, unspecified organism Code(s): J18.9 - Pneumonia, unspecified organism Status: Acute Assessment and Plan: -----due to COVID-19. Continue supportive treatment such as supplemental oxygen, MDI albuterol, and pulse oximetry. Her CRP and LDH have improved but her ferritin and D-dimer have worsen. Chest x-ray is unchanged. Oxygen demand still stays that 4L but she has many alarm reviews of hypoxia as she takes the oxygen off at times. We discussed that she needs to be taking deeper breaths and improve a little more before she can go home. I have suggested she use the pillow to hug it while she uses the spirometer so she can open up her lungs. I also asked her to get out of bed and hopefully getting her to the chair will help with this. I have increased her ayr frequency to help with her nasal dryness. Continue PRN ketorlac. She does have a gastric bypass so we will not use these long-term, but I think this will help her pain and will be able to take deeper breaths with this. (2) COVID-19: Code(s): U07.1 - COVID-19 Status: Acute Assessment and Plan: -----see above. Respiratory rate up but no hypoxia on current oxygen setting. No need for ICU or intubation at this time but will monitor closely. Chest x-ray reviewed (3) Dehydration: Code(s): E86.0 - Dehydration Status: Acute Assessment and Plan: -----resolved. IV fluids stopped (4) Dysuria: Code(s): R30.0 - Dysuria Status: Acute Assessment and Plan: -----resolved. UA negative. No further treatment (5) DVT prophylaxis: Code(s): Z29.9 - Encounter for prophylactic measures, unspecified Status: Acute Assessment and Plan: -----continue Lovenox (6) Constipation: Code(s): K59.00 - Constipation, unspecified Status: Acute Assessment and Plan: -----will schedule miralax and senna and monitor. Hopefully if she gets out of bed this will get her bowels moving. (7) Hypokalemia: Code(s): E87.6 - Hypokalemia Status: Acute Assessment and Plan: -----improved today. (8) Thrombocytosis: Code(s): D47.3 - Essential (hemorrhagic) thrombocythemia Status: Acute Assessment and Plan: ----- noted on labs and is increasing. Likely due to acute illness. Monitor Subjective Date/time seen: 07/28/19 13:59 Interval history: Pt is a 48-year-old female here for COVID-19. Patient was seen today and is in a little better spirits. She said they are looking for a chair so she can get out of bed and start feeling herself again. She is eating and drinking okay although she does not like much of the food and she is tired of eating the same thing every day. She denies shortness of breath, chest pain, nausea, vomiting, fevers or chills. He is still having stabbing pleuritic chest pain that has improved with the ketorolac. She has not had a bowel movement but thinks when she gets out of bed today she will be able to have 1. She is tired of being hospitalized but understands the seriousness of her condition. Exam Narrative: Exam Narrative: General: Well developed well nourished patient resting comfortably in bed in NAD HEENT: normocephalic Neck: supple Neuro: Alert and oriented x4 CV:RRR. Telemetry reviewed which shows occasional tachycardia and desaturation. Current heart rate 98. Reproducible chest pain at the midline and right sternal border. Resp elevated respiratory rate without conversational dyspnea or retraction. She was taking shallow breaths but did seem deeper today. Lungs appear clear Abd: Soft, non distended. No pain to palpation. Positive bowel sounds Extremities: No swell
[2019-07-28] MEDS: SENNA/DOCUSATE SODIUM TABLET 1 TAB PO (20:35)
[2019-07-29] VITALS (18 sets, daily range): BP systolic 138–151; BP diastolic 83–92; PULSE 88–123; RESP 18–24; TEMP 36.1–37; O2SAT 84–97
--- NOTE | 2019-07-29 06:00 | PC.NURSE ---
Offered Toradol for pain at 07/28 1999, 07/28 0000 and 0600. Pt refused medication.
[2019-07-29 06:03] LABS: Basophils Percent Auto 0.5 % (0.2-1.2); Eosinophils Absolute Auto 0.1 K/mm3 (0-0.3); Eosinophils Percent Auto 2.1 % (0-4.4); Hematocrit 33.5 % (37.0-47.0); Hemoglobin 10.7 g/dL (12.0-15.0); Immature Granulocyte Absolute 0.13 K/mm3 (0.00-0.031); Immature Granulocyte Percent A 2.1 % (0-0.5); Lymphocytes Absolute Auto 1.25 K/mm3 (0.9-3.2); Lymphocytes Percent Auto 20.1 % (18.3-44.2); Mean Corpuscular HGB Conc 31.9 g/dl (32-36); Mean Corpuscular Hemoglobin 27.1 pg (26-34); Mean Corpuscular Volume 84.8 fl (80-100); Mean Platelet Volume 9.4 fl (7.4-10.4); Monocytes Absolute Auto 0.6 K/mm3 (0.1-0.6); Neutrophils Absolute Auto 4.1 K/mm3 (1.3-6.7); Neutrophils Percent Auto 66.2 % (45.5-73.1); Platelet Count Result 742 k/mm3 (150-375); Red Blood Count 3.95 M/mm3 (4.2-5.4); Red Cell Distribution Width 13.3 % (11.5-14.5); White Blood Count 6.2 K/mm3 (4.5-10.0)
[2019-07-29 06:23] LABS: Alanine Aminotransferase 36 U/L (4-35); Albumin Level 3.2 g/dL (3.5-5.1); Alkaline Phosphatase 126 U/L (38-126); Aspartate Amino Transferase 54 U/L (14-36); Bilirubin,Total 0.5 mg/dL (0.2-1.3); Blood Urea Nitrogen 8 mg/dL (7-17); Carbon Dioxide 27 mmol/L (22-30); Chloride 105 mmol/L (98-107); Estimated Glomerular Filt Rate > 60; Glucose 96 mg/dL (65-105); Potassium 3.6 mmol/L (3.4-5.0); Sodium 136 mmol/L (137-145)
[2019-07-29] MEDS: ENOXAPARIN 40 MG/0.4 ML SYRINGE SUB-Q (08:46)
[2019-07-29] MEDS: MAGNESIUM OXIDE 200 MG TABLET PO ×2 (08:47→20:26)
[2019-07-29] MEDS: PANTOPRAZOLE SOD SESQUIHYDRATE 20 MG TAB PO (08:47)
[2019-07-29] MEDS: ALBUTEROL SULFATE (*SP) AEROSOL 1 PUFF 2 PUFF INHALATION ×4 (09:01→20:51)
[2019-07-29] MEDS: ALPRAZOLAM 0.25 MG TABLET PO ×2 (10:35→20:25)
--- NOTE | 2019-07-29 12:39 | PM.IMPN ---
Progress Note: A&P Assessment and Plan (1) Pneumonia: Qualifiers: Laterality: bilateral Lung location: unspecified part of lung Pneumonia type: due to unspecified organism Qualified Code(s): J18.9 - Pneumonia, unspecified organism Code(s): J18.9 - Pneumonia, unspecified organism Status: Acute Assessment and Plan: Viral pneumonia secondary to COVID-19. Continue supportive care with supplemental O2 and monitor with continuous pulse oximetry. Wean O2 as tolerated to keep O2 saturations > 90%. Home O2 eval when closer to discharge. Continue albuterol MDI. Trend acute phase reactants including CRP (down to 5 from 33.9), LFTs, ferritin, etc. She is encouraged to increase activity, continue IS, take deeper breaths. Up with PT/OT. (2) COVID-19: Code(s): U07.1 - COVID-19 Status: Acute Assessment and Plan: See above. Slow improvement. (3) Dysuria: Code(s): R30.0 - Dysuria Status: Resolved Assessment and Plan: Resolved. No complaints today. (4) Constipation: Qualifiers: Constipation type: unspecified constipation type Qualified Code(s): K59.00 - Constipation, unspecified Code(s): K59.00 - Constipation, unspecified Status: Acute Assessment and Plan: Continue bowel regimen. (5) Hypokalemia: Code(s): E87.6 - Hypokalemia Status: Acute Assessment and Plan: K stable 3.6 today. Will monitor. (6) Thrombocytosis: Code(s): D47.3 - Essential (hemorrhagic) thrombocythemia Status: Acute Assessment and Plan: Increasing, felt to be secondary to acute illness. Trend CBC. (7) DVT prophylaxis: Code(s): Z29.9 - Encounter for prophylactic measures, unspecified Status: Acute Assessment and Plan: With Lovenox Subjective Date/time seen: 07/29/19 12:00 Interval history: Ms. Belle is a 48yo F admitted for acute respiratory failure with hypoxia secondary to COVID-19. She seems to be in better spirits today and tells me that although she is still feeling quite ill, she is feeling better than days prior. She reports she was motivated to get up and moving today and became discouraged when she felt significantly short of breath walking to the restroom. She denies any other pain today other than some back discomfort. She has tolerated breakfast without nausea, vomiting, or abdominal pain and a family member has dropped off fast food for lunch. Review of Systems Review of Systems: Narrative: Twelve systems were reviewed with pertinent positives and negatives as per HPI. Exam Narrative: Exam Narrative: General: Female resting in semi-carrasco's position in bed in no acute distress. HEENT: Normocephalic, EOMI, oral mucosa moist. Cardiovascular: Rate and rhythm regular. Respiratory: Decreased breath sounds throughout. Tachypneic but able to speak in full sentences. Tolerating 5L nasal cannula during my encounter. Abdomen: Soft, non-tender, non-distended, bowel sounds present. Extremities: Peripheral pulses intact. Left forearm slightly edematous near IV site . Neuro: No focal neurological deficits. Speech is clear. Objective Data Vital Signs Vital Signs: Last Vital Signs Temp 97 F L 07/29/19 10:00 Pulse 115 H 07/29/19 12:00 Resp 20 07/29/19 10:00 BP 143/92 H 07/29/19 10:00 Pulse Ox 94 07/29/19 10:54 Intake/Output Intake/Output: Intake & Output 07/26/19 07/27/19 07/28/19 07/29/19 23:59 23:59 23:59 23:59 Intake Total 1940 1320 1410 440 Output Total 950 400 0 Balance 862 264 7235 440 Meds/Results Medications: Active Medications Generic Name Dose Route Start Last Admin Trade Name Freq PRN Reason Stop Dose Admin Acetaminophen 650 mg 07/18/19 10:17
--- NOTE | 2019-07-29 14:55 | PCDIET ---
Nutrition Follow-Up Complete: Inadequate oral intake R/T poor appetite as evidence by PO average intake of 28% over four meals. PO intake of 50% or greater to meet needs Goal: Goal met. Continue current goal. Pt current nutrition is Regular Diet+Enlive BID. Nutrition recommendation: Agree with regular diet. Will cancel Enlive per pt request Last recorded weight is 78 kg (wt up two kg since admit) Bowel Motility: On miralax, mag oxide, senna Labs Reviewed: Ferritin 380 up, C reactive down to 7.0 from 33.9 Meds Noted:Protonix Additional Notes: Pt feeling better today. PO intake up to 68% over the last five meals. Pt did like Enlive so we will cancel. Still recommend daily Vitamin C intake of 1000mg-5000mg per day to help fight inflammation. We will follow every five days to monitor PO intake and labs.
[2019-07-29] MEDS: ONDANSETRON HCL ODT 4 MG TABLET PO (16:34)
[2019-07-29] MEDS: KETOROLAC 30 MG/ML VIAL (*BKC) IM (21:04)
[2019-07-30] VITALS (17 sets, daily range): BP systolic 126–152; BP diastolic 76–96; PULSE 71–115; RESP 18–20; TEMP 36.4–37.4; O2SAT 90–99
[2019-07-30] MEDS: ALBUTEROL SULFATE (*SP) AEROSOL 1 PUFF 2 PUFF INHALATION ×4 (08:42→20:17)
[2019-07-30] MEDS: ENOXAPARIN 40 MG/0.4 ML SYRINGE SUB-Q (09:01)
[2019-07-30] MEDS: MAGNESIUM OXIDE 200 MG TABLET PO (09:02)
[2019-07-30] MEDS: PANTOPRAZOLE SOD SESQUIHYDRATE 20 MG TAB PO (09:02)
--- NOTE | 2019-07-30 10:21 | PM.IMPN ---
Progress Note: A&P Assessment and Plan (1) Pneumonia: Qualifiers: Laterality: bilateral Lung location: unspecified part of lung Pneumonia type: due to unspecified organism Qualified Code(s): J18.9 - Pneumonia, unspecified organism Code(s): J18.9 - Pneumonia, unspecified organism Status: Acute Assessment and Plan: Viral pneumonia secondary to COVID-19. Continue supportive care with supplemental O2 and monitor with continuous pulse oximetry. Wean O2 as tolerated to keep O2 saturations > 90%. Home O2 eval tomorrow. Continue albuterol MDI. Trend acute phase reactants including CRP (down to 5 from 33.9), LFTs, ferritin, etc. She is encouraged to increase activity, continue IS, take deeper breaths. Up with PT/OT. Discussed possible discharge tomorrow and she is looking forward to this. (2) COVID-19: Code(s): U07.1 - COVID-19 Status: Acute Assessment and Plan: See above. Slow improvement. (3) Hypokalemia: Code(s): E87.6 - Hypokalemia Status: Acute Assessment and Plan: K stable 3.6 yesterday. Recheck in AM. (4) Thrombocytosis: Code(s): D47.3 - Essential (hemorrhagic) thrombocythemia Status: Acute Assessment and Plan: Increasing, felt to be secondary to acute illness. Trend CBC. (5) DVT prophylaxis: Code(s): Z29.9 - Encounter for prophylactic measures, unspecified Status: Acute Assessment and Plan: With Lovenox Subjective Date/time seen: 07/30/19 10:00 Interval history: Ms. Belle is a 48yo F admitted for acute respiratory failure with hypoxia secondary to COVID-19. She is feeling improved today and in good spirits. She describes that she is feeling less short of breath with activity compared to yesterday and is just feeling very tired. She denies any chest pain today or calf tenderness. She has tolerated oral intake without nausea, vomiting, or abdominal pain. Review of Systems Review of Systems: Narrative: Twelve systems were reviewed with pertinent positives and negatives as per HPI. Exam Narrative: Exam Narrative: General: Female resting sitting up in bedside chair and transferred to bed, in no acute distress but causes a bit of tachypnea. HEENT: Normocephalic, EOMI, oral mucosa moist. Cardiovascular: Rate and rhythm regular. Respiratory: Decreased breath sounds throughout. Mildly tachypneic but able to speak in full sentences. Tolerating 4L nasal cannula during my encounter and overall respiratory effort is improved from yesterday. Abdomen: Soft, non-tender, non-distended, bowel sounds present. Extremities: Peripheral pulses intact. Left forearm slightly edematous and tender near previous IV site . Neuro: No focal neurological deficits. Speech is clear. Objective Data Vital Signs Vital Signs: Last Vital Signs Temp 98.1 F 07/30/19 06:00 Pulse 105 H 07/30/19 08:00 Resp 18 07/30/19 06:00 BP 145/86 H 07/30/19 06:00 Pulse Ox 93 07/30/19 09:15 Intake/Output Intake/Output: Intake & Output 07/27/19 07/28/19 07/29/19 07/30/19 23:59 23:59 23:59 23:59 Intake Total 1320 1410 1050 390 Output Total 400 0 Balance 920 1410 1050 390 Meds/Results Medications: Active Medications Generic Name Dose Route Start Last Admin Trade Name Freq PRN Reason Stop Dose Admin Acetaminophen 650 mg 07/18/19 10:17 07/26/19 06:29 Tylenol Tablet PO 650 mg Q4H PRN Administration Mild Pain (1-3) or Fever Hydrocodone Bitart/Acetaminophen 1 tab 07/24/19 10:22 07/29/19 20:25 [place] 5-325 Mg PO 1 tab Q4H PRN Administration Pain Rated 4-6 Albuterol 2 puff 07/25/19 16:00 07/30/19 08:42 Proventil Hfa INHALATION 2 puff QIDRT MISBAH Administration Alprazolam 0.25 mg 07/22/19 18:55 07/29/19 20:25 Xanax PO 0.25 mg
--- NOTE | 2019-07-30 15:00 | PCOTNOTE ---
Attempted to see patient this pm, however patient declined stating, Someone from physical therapy literally just left. Pt requested to rest at this time.
[2019-07-31] VITALS (15 sets, daily range): BP systolic 140–152; BP diastolic 89–95; PULSE 90–108; RESP 18–20; TEMP 36.6–37.1; O2SAT 86–97
[2019-07-31 06:19] LABS: Basophils Percent Auto 0.6 % (0.2-1.2); Eosinophils Absolute Auto 0.2 K/mm3 (0-0.3); Eosinophils Percent Auto 2.9 % (0-4.4); Hematocrit 32.8 % (37.0-47.0); Hemoglobin 10.5 g/dL (12.0-15.0); Immature Granulocyte Absolute 0.11 K/mm3 (0.00-0.031); Immature Granulocyte Percent A 1.7 % (0-0.5); Lymphocytes Absolute Auto 1.36 K/mm3 (0.9-3.2); Lymphocytes Percent Auto 20.9 % (18.3-44.2); Mean Corpuscular Hemoglobin 27.6 pg (26-34); Mean Corpuscular Volume 86.1 fl (80-100); Mean Platelet Volume 9.2 fl (7.4-10.4); Monocytes Absolute Auto 0.6 K/mm3 (0.1-0.6); Monocytes Percent Auto 8.8 % (2.6-8.5); Neutrophils Absolute Auto 4.2 K/mm3 (1.3-6.7); Neutrophils Percent Auto 65.1 % (45.5-73.1); Platelet Count Result 780 k/mm3 (150-375); Red Blood Count 3.81 M/mm3 (4.2-5.4); Red Cell Distribution Width 13.5 % (11.5-14.5); White Blood Count 6.5 K/mm3 (4.5-10.0)
[2019-07-31 06:38] LABS: Alanine Aminotransferase 34 U/L (4-35); Albumin Level 3.4 g/dL (3.5-5.1); Alkaline Phosphatase 108 U/L (38-126); Aspartate Amino Transferase 49 U/L (14-36); Bilirubin,Total 0.4 mg/dL (0.2-1.3); Blood Urea Nitrogen 8 mg/dL (7-17); CRP 1.9 mg/dL (<1.0); Calcium 8.1 mg/dL (8.4-10.2); Carbon Dioxide 26 mmol/L (22-30); Chloride 107 mmol/L (98-107); Estimated Glomerular Filt Rate > 60; Glucose 98 mg/dL (65-105); Lactate Dehydrogenase 917 U/L (313-618); Magnesium 2.2 mg/dL (1.6-2.3); Phosphorus 3.3 mg/dL (2.5-4.5); Potassium 3.8 mmol/L (3.4-5.0); Sodium 139 mmol/L (137-145)
[2019-07-31] MEDS: ALBUTEROL SULFATE (*SP) AEROSOL 1 PUFF 2 PUFF INHALATION (08:47)
--- NOTE | 2019-07-31 11:17 | HOMEO2EVAL ---
Home Oxygen Evaluation RC: Home Oxygen (O2) Evaluation Start: 07/31/19 08:15 Freq: ONCE Status: Active Protocol: RPE Activity Type Activity Date Activity User E-Sign Co-Sign Detail Recorded Client Recorded Date Recorded By Document 07/31/19 10:00 NEO [email or web address] 07/31/19 10:41 [facility] Document 07/31/19 10:10 NOE [email or web address] 07/31/19 10:50 [facility] Document 07/31/19 10:15 [facility] [email or web address] 07/31/19 10:50 [facility] Document 07/31/19 10:17 [facility] [email or web address] 07/31/19 10:50 [facility] Document 07/31/19 10:25 [facility] [email or web address] 07/31/19 10:50 [facility] Document 07/31/19 10:27 [facility] [email or web address] 07/31/19 10:50 [facility] Document 07/31/19 10:29 [facility] [email or web address] 07/31/19 10:50 [facility] 07/31/19 07/31/19 07/31/19 10:00 10:10 10:15 Home O2 Evaluation Test Phase Resting Resting Exercise Oxygen Delivery Room Air Nasal Cannula Nasal Cannula Oxygen Flow Rate (L/min) 1 2 Pulse Oximetry (90-100 %) 87 L 89 L 86 L Pulse Rate (60-100 beats/min) 90 92 Activity Tolerance Good Good Good Rating of Perceived Dyspnea (PD) +2 Mild, Some +2 Mild, Some Difficulty, Difficulty, Noticeable to Noticeable to the Observer the Observer Ambulation Distance (feet) Treatment Charges O2 Evaluation 07/31/19 07/31/19 07/31/19 10:17 10:25 10:27 Home O2 Evaluation Test Phase Exercise Exercise Exercise Oxygen Delivery Nasal Cannula Nasal Cannula Nasal Cannula Oxygen Flow Rate (L/min) 3 3 3 Pulse Oximetry (90-100 %) 90 88 L 90 Pulse Rate (60-100 beats/min) 90 96 98 Activity Tolerance Good Good Good Rating of Perceived Dyspnea (PD) +2 Mild, Some +2 Mild, Some +2 Mild, Some Difficulty, Difficulty, Difficulty, Noticeable to Noticeable to Noticeable to the Observer the Observer the Observer Ambulation Distance (feet) 50 100 Treatment Charges 07/31/19 10:29 Home O2 Evaluation Test Phase Resting Oxygen Delivery Nasal Cannula Oxygen Flow Rate (L/min) 3 Pulse Oximetry (90-100 %) 90 Pulse Rate (60-100 beats/min) 96 Activity Tolerance Good Rating of Perceived Dyspnea (PD) +2 Mild, Some Difficulty, Noticeable to the Observer Ambulation Distance (feet) Treatment Charges
--- NOTE | 2019-07-31 11:26 | PCRCNOTE ---
PT. REQUIRES 1LPM AT REST AND 3LPM WITH ACTIVITY. SET PT. UP WITH [facility].
--- NOTE | 2019-07-31 12:21 | PM.DS ---
DS: Diagnosis Admitting Diagnosis Admitting Diagnosis: Pneumonia, unspecified organism Discharge Diagnosis (1) Pneumonia: Qualifiers: Laterality: bilateral Lung location: unspecified part of lung Pneumonia type: due to unspecified organism Qualified Code(s): J18.9 - Pneumonia, unspecified organism Code(s): J18.9 - Pneumonia, unspecified organism Status: Acute Assessment and Plan: Date of Service 07/31/19: Ms. Belle is a 48yo F who presented to the ED for evaluation of cough, shortness of breath, and fever. She noted her symptoms began 07/13/19. She had recently been with her daughter who had tested positive for Coronavirus and the patient herself had been tested at [facility] testing [place] the day prior to arrival. Records received 07/19/19 from [facility] showed positive COVID-19. The patient was treated supportively with supplemental oxygen and albuterol inhaler. She was treated with Rocephin initially due to an abnormal urinalysis, and Rocephin was discontinued once urine culture was negative. Acute phase reactants such as ferritin and CRP were elevated but trending down at discharge. CRP as high as 33.9, down to 1.9 day of discharge. Her shortness of breath was persistent through her admission but once activity was increased, she made some improvement. She continued to have hypoxia and a home oxygen evaluation showed she required 1L O2 at rest and 3L with activity. Home oxygen was arranged. She was hemodynamically stable for discharge with improvement in her symptoms 07/31/19 with instructions to follow up with her PCP this week. (2) COVID-19: Code(s): U07.1 - COVID-19 Status: Acute Assessment and Plan: (3) Hypokalemia: Code(s): E87.6 - Hypokalemia Status: Resolved Assessment and Plan: Resolved, stable at discharge. (4) Thrombocytosis: Code(s): D47.3 - Essential (hemorrhagic) thrombocythemia Status: Acute Assessment and Plan: [place] to be secondary to acute illness. Can be monitored by PCP after resolution of acute illness. (5) DVT prophylaxis: Code(s): Z29.9 - Encounter for prophylactic measures, unspecified Status: Acute Assessment and Plan: With Lovenox DS: Summary Time Spent with Patient Time attestation: Total time spent providing and/or coordinating discharge services: 35 minutes Exam Narrative: Exam Narrative: Last Vital Signs Temp 98.1 F 07/31/19 10:00 Pulse 98 07/31/19 12:00 Resp 20 07/31/19 10:00 BP 140/89 07/31/19 10:00 Pulse Ox 90 07/31/19 10:29 General: Female resting comfortably in bed in no acute distress. HEENT: Normocephalic, EOMI, oral mucosa moist. Cardiovascular: Rate and rhythm regular. Respiratory: Decreased breath sounds throughout. Able to speak in full sentences. Tolerating 3L nasal cannula during my encounter and overall respiratory effort is improved from days prior. Abdomen: Soft, non-tender, non-distended, bowel sounds present. Extremities: Peripheral pulses intact. Left forearm slightly edematous and tender near previous IV site . Neuro: No focal neurological deficits. Speech is clear. DS: Data Imaging Radiologist's impression: ITS Impressions Chest X-Ray 07/18/19 08:16 IMPRESSION: 1. Bilateral lung disease which could represent pulmonary edema, pneumonia, atelectasis or some combination thereof. Chest CTA 07/18/19 11:35 IMPRESSION: 1. No pulmonary embolism. Evaluation limited in the lower lobar segmental and more peripheral subsegmental pulmonary arteries due to respiratory motion. 2. Bilateral patchy groundglass opacities and consolidation concerning for multif
== END 2019-07-31 13:10 | disposition home or self-care (01) | DRG 177 ==
LOC: ANHED 10:19 → ANHICU 10:39 → ANH3MEDSUR 07-20 10:48
PROVIDERS: Family Medicine; Physician Assistant; Admitting Provider Hospitalist; Emergency Provider Family Medicine; PCP Chiropractor; Visit Provider Physician Assistant
DX: U07.1 COVID-19 (principal); J12.89 Other viral pneumonia; J96.01 Acute respiratory failure with hypoxia; E87.6 Hypokalemia; D47.3 Essential (hemorrhagic) thrombocythemia; R30.0 Dysuria; E86.0 Dehydration; D64.9 Anemia, unspecified; K59.00 Constipation, unspecified; Z90.710 Acquired absence of both cervix and uterus; Z90.49 Acquired absence of other specified parts of digestive tract; Z98.84 Bariatric surgery status
CPT/HCPCS: 36415; 36600; 71045; 71275; 80048; 80053; 81001; 82550; 82728; 82805; 83615; 83735; 84100; 85025; 85027; 85055; 85380; 86140; 87040; 87086; 93005; 94618; 94640; 96365; 96375; 97116; 97161; 97165; 97535; 99285; A9270; J0131; J0456; J0696; J1650; J1885; J2060; J2270; J2405; J2550; J7030; Q9967

== ENCOUNTER 2019-09-07 05:15 | Emergency (ER) | payer OTHER, SELFPAY ==
[2019-09-07 05:22] VITALS: BP 148/94; PULSE 85; RESP 14; TEMP 36.8; O2SAT 100
--- NOTE | 2019-09-07 05:30 | ED.ALLEREA ---
HPI - Allergic Reaction General Chief complaint: Allergic Reaction Stated complaint: allergic rx Time Seen by Provider: 09/07/19 05:22 History of Present Illness HPI narrative: Rash for the past 3 days. Started on her legs. Now everywhere except palms and soles. She was seen at [facility] on and started on medrol dose pack, benadryl, and pepcid. She reports no improvement in the rash. She did have some lip swelling which has resolved. No SOB, dysphagia. She is not aware of any new exposure including medications, food, or products. She has no know allergies. Related Data Allergies Allergy/AdvReac Type Severity Reaction Status Date / Time No Known Allergies Allergy Verified 07/18/19 08:11 Review of Systems Review of Systems: All systems reviewed & are unremarkable except as noted in HPI and below Constitutional: Constitutional: Denies chills and Denies fever(s) ENT: Denies dysphagia and Denies sore throat Cardiovascular: Cardiovascular: Denies chest pain Respiratory: Respiratory: Denies dyspnea Integumentary/Breasts: Skin/Breast: Reports pruritus and Reports rash Neurologic: Denies dizziness PMFSH Surgical History Surgical History Gastric bypass status for obesity Gastric Sleeve H/O: hysterectomy History of cholecystectomy Family History Family History Father No problems noted. Mother No problems noted. Daughter No problems noted. Social History Social History Social History: Patient is single. She does have to adult daughters. Never smoker. Occasional alcohol use. She is a full code. 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 Smoking status: Never smoker Alcohol intake: current Drinks per week: 3 Substance use: never Additional occupation/education comments: Dispatcher for [employer] Gender identity (if verbalized by the patient): Female Spiritual care concerns: No Agree to blood products: Yes Exam Const: General: no acute distress and alert Orientation/consciousness: patient oriented x3 Limitations: no limitations HENMT: Head: normal to inspection Resp: Effort & Inspection: normal respiratory effort Auscultation: clear to auscultation bilaterally Cardio: Rate: regular rate Rhythm: regular rhythm GI: GI Palp: Yes Soft to palpation and No Tenderness to palpation present (GI) Skin: Other: Diffuse mildly erythematous papular rash with marked excoriation Neuro: General: patient oriented x3 and CN's II-XI intact bilaterally Cranial nerves: Yes Nystagmus not present Extrem: General: normal to inspection Course Vital Signs Vital signs: Vital Signs Temperature 36.8 C 09/07/19 05:22 Pulse Rate 85 09/07/19 05:22 Respiratory Rate 14 09/07/19 05:22 Blood Pressure 148/94 H 09/07/19 05:22 Pulse Oximetry 100 09/07/19 05:22 Temperature 36.8 C 09/07/19 05:22 Pulse Rate 85 09/07/19 05:22 Respiratory Rate 14 09/07/19 05:22 Blood Pressure 148/94 H 09/07/19 05:22 Pulse Oximetry 100 09/07/19 05:22 MDM - Allergic Reaction MDM Narrative Medical decision making narrative: Improved with EPi, benadryl, and dexamethasone shot. She can continue previous meds on discharge. Differential Diagnosis Differential diagnosis: Likely urticaria Discharge Plan Discharge Clinical Impression: Urticaria Patient Disposition: Home, Self-Care Condition: Stable Instructions: Urticaria (ED) Prescriptions: No Action albuterol sulfate [Proventil HFA] 90 mcg/actuation Hfa Aerosol Inhaler 2 puff inhalation Q6H PRN (Reason: shortness of breath or wheezing) Qty: 6.7 RF: 0 ondansetron HCl [Zofran] 4 mg tablet 4 mg PO Q8H PRN (Reason: nausea and vomiting) Qty: 10 RF: 0 Follow-up/Referrals: Daniela,Martin Olivares MD [Primary Care Provider] -
[2019-09-07] MEDS: EPINEPHrine HCL INJ 1 MG/ML AMPUL 0.5 MG IM (05:34)
[2019-09-07 06:47] VITALS: BP 125/60; PULSE 80; RESP 14; TEMP 36.6; O2SAT 100
== END 2019-09-07 06:48 | disposition home or self-care (01) ==
PROVIDERS: Emergency Provider Emergency Medicine; PCP Chiropractor
DX: L50.9 Urticaria, unspecified (principal); Z98.84 Bariatric surgery status
CPT/HCPCS: 96372; 99284; A9270; J0171; J1100

== ENCOUNTER 2020-04-09 08:23 | Outpatient (CLI) | payer OTHER, SELFPAY ==
--- NOTE | ~2020-04-09 | XR_ITS ---
EXAMINATION: XR knee LT min 4V EXAM DATE: 04/09/2020 08:53 INDICATION: BI knee pain; LT shoulder pain. TECHNIQUE: Left knee lateral, frontal AP, frontal PA tunnel, sunrise projections. There is no prior study for comparison. FINDINGS: No evidence osteochondral defect or joint body in the left knee joint. Trace joint fluid . There are no acute fractures or dislocations identified. There is no subcutaneous gas. The soft t issue is unremarkable. There are no radiopaque foreign bodies. There is mild patellar lateral tilt and subluxation. Small suprapatellar enthesopathy. IMPRESSION: 1. Left patellar mild lateral tilt and subluxation. 2. Small suprapatellar enthesopathy. Reviewed, dictated and finalized at location D. S SERVICE PROFESSIONAL
--- NOTE | ~2020-04-09 | XR_ITS ---
EXAMINATION: XR shoulder LT min 2V EXAM DATE: 04/09/2020 08:53 INDICATION: No known recent injury provided at this time. Pain of the left shoulder. TECHNIQUE: The following left shoulder projections obtained: frontal projection with internal rotatio n, frontal projection with external rotation, Grashey, and axillary (4+ views). There is no prior st udy for comparison. FINDINGS: No evidence of left shoulder rotator cuff calcific tendinosis. There is mild to moderate acromioclavicular joint primary osteoarthritis. There are no acute fractures or dislocations identifi ed. There is no subcutaneous gas. The soft tissue is unremarkable. There are no radiopaque foreig n bodies. 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 Reviewed, dictated and finalized at location D. CTOR PRIVATE
--- NOTE | ~2020-04-09 | XR_ITS ---
EXAMINATION: XR knee RT min 4V EXAM DATE: 04/09/2020 08:53 INDICATION: BI knee pain; LT shoulder pain. TECHNIQUE: Right knee lateral, frontal AP, frontal PA tunnel, sunrise projections. There is no prior study for comparison. FINDINGS: No evidence osteochondral defect or joint body in the right knee joint. There is mild pa tellar lateral subluxation and patellofemoral compartment primary osteoarthritis. Small suprapatellar enthesopathy. There are no acute fractures or dislocations identified. There is no subcutaneous gas . The soft tissue is unremarkable. There are no radiopaque foreign bodies. IMPRESSION: 1. Mild patellofemoral compartment osteoarthritis. 2. Mild patellar lateral subluxation. Reviewed, dictated and finalized at location D. L CANOE INSPECTOR
== END 2020-04-09 08:24 | disposition home or self-care (01) ==
LOC: ANHIMG 08:27
PROVIDERS: PCP Chiropractor; Visit Provider Chiropractor
DX: S83.011A Lateral subluxation of right patella, initial encounter (principal); M17.0 Bilateral primary osteoarthritis of knee; S83.002A Unspecified subluxation of left patella, initial encounter; M76.9 Unspecified enthesopathy, lower limb, excluding foot; M19.012 Primary osteoarthritis, left shoulder
CPT/HCPCS: 73030; 73564

== ENCOUNTER 2020-05-25 08:04 | Emergency (ER) | payer OTHER, SELFPAY ==
[2020-05-25] VITALS (24 sets, daily range): BP systolic 109–131; BP diastolic 61–92; PULSE 75–86; RESP 16–18; TEMP 36.1; O2SAT 98–100
--- NOTE | 2020-05-25 08:26 | ED.ALLEREA ---
HPI - Allergic Reaction General Chief complaint: Allergic Reaction Stated complaint: swelling to mouth, takes Lisinopril Time Seen by Provider: 05/25/20 08:10 Source: patient Mode of arrival: ambulatory Limitations: no limitations History of Present Illness HPI narrative: This is a 49 year old female who presents for evaluation of upper lip swelling. She woke this morning with the sensation that her upper lip was swollen. She has been taking lisinopril since February. She was placed on lisinopril with HCTZ 2 weeks ago. She took a dose of her medication after the symptoms started, and she reports she developed numbness to her upper lip at that point. She denies tongue swelling, throat swelling or itching. She denies a rash. She denies any known previous allergies. Her primary care physician is Dr. Martin White,. Related Data Allergies Allergy/AdvReac Type Severity Reaction Status Date / Time lisinopril Allergy Severe Swelling Verified 05/25/20 08:19 Review of Systems Review of Systems: All systems reviewed & are unremarkable except as noted in HPI and below Constitutional: Constitutional: Denies chills and Denies fever(s) ENT: Denies nasal congestion Cardiovascular: Cardiovascular: Denies chest pain Respiratory: Respiratory: Denies cough and Denies dyspnea Gastrointestinal: Gastrointestinal: Denies abdominal pain, Denies nausea and Denies vomiting Integumentary/Breasts: Skin/Breast: Denies pruritus, Denies erythema and Denies rash PMFSH Past Medical History Medical History (Updated 05/25/20 @ 18:14 by Nasreen Cool MD) Hypertension Surgical History Surgical History Gastric bypass status for obesity Gastric Sleeve H/O: hysterectomy History of cholecystectomy Family History Family History Father No problems noted. Mother No problems noted. Daughter No problems noted. Social History Social History Social History: Patient is single. She does have to adult daughters. Never smoker. Occasional alcohol use. She is a full code. 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 Smoking status: Never smoker Alcohol intake: current Drinks per week: 3 Substance use: never Additional occupation/education comments: Dispatcher for [employer] Gender identity (if verbalized by the patient): Male Spiritual care concerns: No Agree to blood products: Yes Exam Const: General: no acute distress and alert Orientation/consciousness: patient oriented x3 HENMT: Head: normocephalic and atraumatic General nose exam: Normal nares present Face and sinus: face symmetric Mouth: Yes tongue normal, Yes oropharynx normal, Yes moist mucous membranes and Yes other (there may be mild upper lip swelling) Throat: posterior oropharynx normal Eyes: EOM: EOMs intact bilaterally Resp: Effort & Inspection: normal respiratory effort and no retractions Auscultation: clear to auscultation bilaterally Cardio: Rate: regular rate Rhythm: regular rhythm Heart sounds: no murmurs GI: GI Palp: Yes Soft to palpation, No Tenderness to palpation present (GI) and No Guarding due to palpation present (GI) Auscultation: normal bowel sounds Skin: General skin exam: normal color Rashes: no rashes Neuro: General: patient oriented x3 and moves all extremities Extrem: General: no pedal edema Psych: Affect: normal affect Attitude: cooperative Course Reevaluation(s) Reevaluation #1: Patient reports her lip feels the same, It has not gotten worse or better. Date: 05/25/20 Consultations Consultation #1: I spoke with Dr. White and he states to just place patient on HCTZ for hypertension. He will place lisinopril as an allergy. Date: 05/25/20 Time: 11:39 Vital Signs Vital signs: Vital Signs Temperature 96.9 F L 03/
[2020-05-25] MEDS: FAMOTIDINE 20 MG/2 ML VIAL IV PUSH (08:48)
[2020-05-25] MEDS: diphenhydrAMINE HCl INJ 50 MG/ML VIAL 25 MG IV PUSH (08:49)
[2020-05-25] MEDS: methylPREDNISolone SOD SUCC 125 MG VIAL IV PUSH (08:49)
== END 2020-05-25 12:40 | disposition home or self-care (01) ==
PROVIDERS: Emergency Provider General Practice; PCP Chiropractor
DX: T78.3XXA Angioneurotic edema, initial encounter (principal); I10 Essential (primary) hypertension; Z98.84 Bariatric surgery status
CPT/HCPCS: 96374; 96375; 99284; J1200; J2930

== ENCOUNTER 2021-09-01 09:34 | Emergency (ER) | payer OTHER, SELFPAY ==
[2021-09-01 09:36] VITALS: BP 162/98; PULSE 80; RESP 16; TEMP 36.1; O2SAT 100
--- NOTE | 2021-09-01 09:37 | PC.NURSE ---
Trinh, natural gas shothole driller, notified. Trinh recommends to collect stool culture.
[2021-09-01 09:51] LABS: Basophils Percent Auto 0.8 % (0.2-1.2); Eosinophils Absolute Auto 0.1 K/mm3 (0-0.3); Eosinophils Percent Auto 1.3 % (0-4.4); Hematocrit 40.2 % (37.0-47.0); Hemoglobin 12.7 g/dL (12.0-15.0); Immature Granulocyte Absolute 0.02 K/mm3 (0.00-0.031); Immature Granulocyte Percent A 0.5 % (0-0.5); Lymphocytes Absolute Auto 1.73 K/mm3 (0.9-3.2); Lymphocytes Percent Auto 46.6 % (18.3-44.2); Mean Corpuscular HGB Conc 31.6 g/dl (32-36); Mean Corpuscular Volume 85.4 fl (80-100); Mean Platelet Volume 10.7 fl (7.4-10.4); Monocytes Absolute Auto 0.4 K/mm3 (0.1-0.6); Monocytes Percent Auto 11.1 % (2.6-8.5); Neutrophils Absolute Auto 1.5 K/mm3 (1.3-6.7); Neutrophils Percent Auto 39.7 % (45.5-73.1); Platelet Count Result 296 k/mm3 (150-375); Red Blood Count 4.71 M/mm3 (4.2-5.4); Red Cell Distribution Width 13.6 % (11.5-14.5); White Blood Count 3.7 K/mm3 (4.5-10.0)
[2021-09-01 09:59] LABS: Alanine Aminotransferase 22 U/L (6-35); Albumin Level 4.6 g/dL (3.5-5.1); Alkaline Phosphatase 79 U/L (38-126); Anion Gap 8 mmol/L (8-16); Aspartate Amino Transferase 27 U/L (14-36); Blood Urea Nitrogen 10 mg/dL (7-17); Calcium 8.7 mg/dL (8.4-10.2); Carbon Dioxide 26 mmol/L (22-30); Chloride 107 mmol/L (98-107); Estimated CRCL calculation 57 ml/min; Estimated Glomerular Filt Rate > 60; Glucose 88 mg/dL (65-110); Lipase 129 U/L (23-300); Sodium 141 mmol/L (137-145)
[2021-09-01 10:12] LABS: Atypical Lymphocytes Present
[2021-09-01 10:13] LABS: Platelet Estimate Adequate (Adequate)
[2021-09-01 11:05] LABS: Appearance Urine Cloudy (Clear); Bilirubin Urine Negative (Negative); Color Urine Yellow (Yellow); Glucose Urine UA Negative (Negative); Ketones Urine Negative (Negative); Leukocyte Esterase Ur 2+ LEU/UL (Negative); Nitrate Urine Negative (Negative); Protein Urine Trace mg/dL (Negative); Specific Grav Ur 1.025 (1.001-1.035); Urobilinogen Urine 0.2 mg/dL (<2.0)
[2021-09-01 11:18] LABS: Add Urine Microscopic? YES; Blood Urine Trace-Intact (Negative)
[2021-09-01 11:22] LABS: Bacteria Urine Trace /hpf; Mucus Urine Rare /lpf; Squamous Epithelial Cell Urine Many /hpf (Few)
[2021-09-01] MEDS: AZITHROMYCIN 250 MG TABLET 1000 MG PO (11:25)
[2021-09-01] MEDS: ONDANSETRON HCL ODT 4 MG TABLET PO (11:25)
[2021-09-01 12:05] VITALS: BP 142/86; PULSE 88; RESP 16; O2SAT 99
--- NOTE | 2021-09-01 14:40 | ED.NAVMDI ---
HPI - Nausea/Vomiting/Diarrhea General Chief complaint: Nausea/Vomiting/Diarrhea Stated complaint: n/v/d Time Seen by Provider: 09/01/21 09:49 Source: patient Mode of arrival: ambulatory Limitations: no limitations History of Present Illness HPI Narrative: 51 year old female presents today with complaints of diarrhea that started the day after she returned home from [place]. Patient denies fever, body aches, or chills. She is currently able to tolerate fluids but if she eats anything she has diarrhea. denies abdominal pain or urinary symptoms. Related Data Allergies Allergy/AdvReac Type Severity Reaction Status Date / Time lisinopril Allergy Severe Swelling Verified 09/01/21 09:44 Review of Systems Review of Systems: CONSTITUTIONAL: Denies fever, chills, or sweats. EYES: Denies visual changes, redness, or discharge. ENT: Denies rhinorrhea, congestion, sore throat, or otalgia. CARDIOVASCULAR: Denies chest pain, palpitations, or edema. RESPIRATORY: Denies cough or dyspnea. GASTROINTESTINAL: Nausea and diarrhea. Denies abdominal pain. GENITOURINARY: Denies dysuria or hematuria. SKIN: Denies rash or itching. MUSCULOSKELETAL: Denies back pain, joint pain, or myalgia. NEUROLOGIC: Denies headache, numbness, dizziness, or weakness. PSYCHIATRIC: Denies anxiety or depression. [facility] Past Medical History Medical History (Updated 09/01/21 @ 11:28 by Carlie Zimmer APRN) Hypertension Surgical History Surgical History Gastric bypass status for obesity Gastric Sleeve H/O: hysterectomy History of cholecystectomy Family History Family History Father No problems noted. Mother No problems noted. Daughter No problems noted. Social History Social History Social History: Patient is single. She does have to adult daughters. Never smoker. Occasional alcohol use. She is a full code. 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 HEAD: Normocephalic, atraumatic. EYES: PERRLA and EOMI. NECK: Supple. No adenopathy or masses. No carotid bruits or JVD CHEST: Clear to auscultation. No respiratory distress. No wheezes rales or rhonchi HEART: Regular rate and rhythm. No murmur heard. Normal peripheral pulses. ABDOMEN: Soft, nontender, nondistended, normal active bowel sounds. EXTREMITIES: Normal range of motion. No edema. SKIN: Warm, dry, no rash. NEURO: No focal deficits. Alert and oriented x3. PSYCH: Normal mood and affect. Course Vital Signs Vital signs: Vital Signs Temperature 36.1 C L 09/01/21 09:36 Pulse Rate 80 09/01/21 09:36 Respiratory Rate 16 09/01/21 09:36 Blood Pressure 162/98 H 09/01/21 09:36 Pulse Oximetry 100 09/01/21 09:36 Oxygen Delivery Room Air 09/01/21 09:36 Temperature 36.1 C L 09/01/21 09:36 Pulse Rate 88 09/01/21 12:05 Respiratory Rate 16 09/01/21 12:05 Blood Pressure 142/86 H 09/01/21 12:05 Pulse Oximetry 99 09/01/21 12:05 Oxygen Delivery Room Air 09/01/21 09:36 MDM - Nausea/Vomiting/Diarrhea MDM Narrative Medical decision making narrative: 51-year-old female HPI as noted. Patient just traveled to [place] and started with diarrhea 1 day after coming back. Patient with vomiting first day but has not vomited in a couple days. We will treat for traveler's diarrhea. Stool sent. Patient instructed follow-up with primary. Differential Diagnosis Differential diagnosis: Likely t
== END 2021-09-01 12:06 | disposition home or self-care (01) ==
PROVIDERS: Emergency Medicine; Emergency Provider Nurse Practitioner Family
DX: R19.7 Diarrhea, unspecified (principal); I10 Essential (primary) hypertension
CPT/HCPCS: 36415; 80053; 81001; 83690; 85025; 87045; 87077; 87086; 87088; 87177; 87186; 87209; 87269; 87272; 87427; 99283; A9270

== ENCOUNTER 2021-12-14 16:12 | Emergency (ER) | payer OTHER, SELFPAY ==
[2021-12-14 16:21] VITALS: BP 166/104; PULSE 90; RESP 16; TEMP 37.9; O2SAT 98
--- NOTE | 2021-12-14 17:14 | ED.GENADULT ---
HPI - General Adult General Chief complaint: Upper Respiratory Infection Stated complaint: uri Source: patient Mode of arrival: ambulatory Limitations: no limitations History of Present Illness HPI narrative: Patient presents for evaluation of sick symptoms for the last four days. Symptoms include fatigue, generalized body aches, chills, sore throat, productive cough of yellow sputum. She denies any fever, nausea, vomiting. She has some chronic shortness of breath following COVID a few years ago. However shortness of breath is not worse from baseline. No recent sick contacts to her knowledge. She does not smoke. She is not taking any medications to assist with her symptoms. No additional complaints or concerns. Related Data Allergies Allergy/AdvReac Type Severity Reaction Status Date / Time lisinopril Allergy Severe Swelling Verified 09/01/21 09:44 Review of Systems Review of Systems: CONSTITUTIONAL: Reports chills and fatigue. Denies fever or sweats. EYES: Denies visual changes, redness, or discharge. ENT: Reports sinus congestion, drainage, sore throat. CARDIOVASCULAR: Denies chest pain, palpitations, or edema. RESPIRATORY: Reports productive cough of yellow sputum with chronic shortness of breath, unchanged from baseline GASTROINTESTINAL: Denies abdominal pain, nausea, vomiting, or diarrhea. GENITOURINARY: Denies dysuria or hematuria. SKIN: Denies rash or itching. MUSCULOSKELETAL: Reports generalized body aches NEUROLOGIC: Denies headache, numbness, dizziness, or weakness. PSYCHIATRIC: Denies anxiety or depression. [facility] Past Medical History Medical History Hypertension Surgical History Surgical History Gastric bypass status for obesity Gastric Sleeve H/O: hysterectomy History of cholecystectomy Family History Family History Father No problems noted. Mother No problems noted. Daughter No problems noted. Social History Social History Social History: Patient is single. She does have to adult daughters. Never smoker. Occasional alcohol use. She is a full code. 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 Smoking status: Never smoker Alcohol intake: current Drinks per week: 3 Alcohol use details: Occasional alcohol Substance use: never Additional occupation/education comments: Dispatcher for [employer] Gender identity (if verbalized by the patient): Male Spiritual care concerns: No Agree to blood products: Yes Exam Narrative: GENERAL: Appears acutely ill but nontoxic HEAD: Normocephalic, atraumatic. EYES: PERRLA and EOMI. ENT: Nares clear, no rhinorrhea or epistaxis. Mucous membranes moist. Oropharynx without tonsillar hypertrophy exudate or other lesions. Bilateral TMs pearly carpenter nonbulging NECK: Supple. No adenopathy or masses. No carotid bruits or JVD CHEST: Clear to auscultation. No respiratory distress. No wheezes rales or rhonchi HEART: Regular rate and rhythm. No murmur heard. Normal peripheral pulses. ABDOMEN: Soft, nontender, nondistended, normal active bowel sounds. EXTREMITIES: Normal range of motion. No edema. SKIN: Warm, dry, no rash. NEURO: No focal deficits. Alert and oriented x3. PSYCH: Normal mood and affect. Course Course Emergency Course: This is a 51-year-old female who presented for evaluation of sick symptoms. COVID, strep, influenza were all negative. Patient actually eloped from her room so we were unable to provide her with written instructions related to her plan of care. Level of Care: Express Care Visit Vital Signs Vital signs: Vital Signs Temperature 37.9 C H 12/14/21 16:21 Pulse Rate 90 12/14/21 16:21 Respiratory Rate 16 12/14/21 16:21 Blood Pressure 166/104 H 12/14/21 16:21 Pulse Ox
== END 2021-12-14 18:00 | disposition left against medical advice (07) ==
LOC: EXPCOLL 16:14
PROVIDERS: Emergency Provider Nurse Practitioner; PCP Internal Medicine
DX: B34.9 Viral infection, unspecified (principal); Z20.822 Contact with and (suspected) exposure to COVID-19; I10 Essential (primary) hypertension; Z98.84 Bariatric surgery status
CPT/HCPCS: 87081; 87426; 87804; 87880; 99213; C9803; G0463

== ENCOUNTER 2023-06-06 20:21 | Emergency (ER) | payer OTHER, SELFPAY ==
[2023-06-06 20:22] VITALS: BP 184/108; PULSE 74; RESP 16; TEMP 36.4; O2SAT 98
[2023-06-06 20:53] LABS: Basophils Percent Auto 0.3 % (0.2-1.2); Eosinophils Absolute Auto 0.1 K/mm3 (0-0.3); Eosinophils Percent Auto 1.3 % (0-4.4); Hemoglobin 12.3 g/dL (12.0-15.0); Immature Granulocyte Absolute 0.02 K/mm3 (0.00-0.031); Immature Granulocyte Percent A 0.3 % (0-0.5); Lymphocytes Absolute Auto 2.35 K/mm3 (0.9-3.2); Lymphocytes Percent Auto 30.4 % (18.3-44.2); Mean Corpuscular HGB Conc 31.5 g/dl (32-36); Mean Corpuscular Hemoglobin 25.4 pg (26-34); Mean Corpuscular Volume 80.4 fl (80-100); Mean Platelet Volume 10.7 fl (7.4-10.4); Monocytes Absolute Auto 0.4 K/mm3 (0.1-0.6); Monocytes Percent Auto 5.4 % (2.6-8.5); Neutrophils Absolute Auto 4.8 K/mm3 (1.3-6.7); Neutrophils Percent Auto 62.3 % (45.5-73.1); Platelet Count Result 290 k/mm3 (150-375); Red Blood Count 4.85 M/mm3 (4.2-5.4); Red Cell Distribution Width 16.5 % (11.5-14.5); White Blood Count 7.7 K/mm3 (4.5-10.0)
[2023-06-06 21:02] LABS: Appearance Urine Turbid (Clear); Bacteria Urine Rare /hpf; Bilirubin Urine 1+ (Negative); Blood Urine 3+ (Negative); Glucose Urine UA Negative (Negative); Ketones Urine Negative (Negative); Leukocyte Esterase Ur 2+ LEU/UL (Negative); Need Manual Microscopic Reviewed; Nitrate Urine Negative (Negative); Protein Urine 4+ mg/dL (Negative); RBC Urine >100 /hpf (0-2); Specific Grav Ur 1.023 (1.001-1.035); Squamous Epithelial Cell Urine None Seen /hpf (Few)
[2023-06-06 21:05] LABS: Color Urine Light Red (Yellow); WBC Urine 51-75 /hpf (0-3)
[2023-06-06 21:05] LABS: Alanine Aminotransferase 39 U/L (6-35); Albumin Level 4.4 g/dL (3.5-5.1); Alkaline Phosphatase 110 U/L (38-126); Anion Gap 5 mmol/L (8-16); Aspartate Amino Transferase 43 U/L (14-36); Bilirubin,Total 1.2 mg/dL (0.2-1.3); Blood Urea Nitrogen 22 mg/dL (7-17); Calcium 9.3 mg/dL (8.4-10.2); Carbon Dioxide 27 mmol/L (22-30); Chloride 106 mmol/L (98-107); Estimated Glomerular Filt Rate > 60; Glucose 98 mg/dL (65-110); Sodium 138 mmol/L (137-145)
[2023-06-06 21:06] LABS: Add Urine Microscopic? YES
--- NOTE | 2023-06-06 22:29 | ED.GENADULT ---
HPI - General Adult General Chief complaint: Urogenital-Female Stated complaint: I'm peeing out blood Time Seen by Provider: 06/06/23 21:45 History of Present Illness HPI narrative: this is a 52-year-old female presenting with blood in her urine and bladder pressure. No fever chills nausea vomiting diarrhea. Patient believes she has UTI. No back pain. No concern for STDs. Related Data Allergies Allergy/AdvReac Type Severity Reaction Status Date / Time lisinopril Allergy Severe Swelling Verified 09/01/21 09:44 iodine Allergy Hives Verified 06/06/23 20:28 [facility] Past Medical History Medical History Hypertension Surgical History Surgical History Gastric bypass status for obesity Gastric Sleeve H/O: hysterectomy History of cholecystectomy Family History Family History Father No problems noted. Mother No problems noted. Daughter No problems noted. Social History Social History Social History: Patient is single. She does have to adult daughters. Never smoker. Occasional alcohol use. She is a full code. 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 Head: atraumatic. EYES: EOMI, NOSE: Atraumatic NECK: Trachea midline RESPIRATORY: No increased rate of breathing CARDIOVASCULAR: RRR, ABDOMINAL: mild suprapubic tenderness, the exam was soft nontender guarding rebound. No CVA tenderness MUSCULOSKELETAl: No obvious deformities NEURO: Alert. Moving 4/4 extremities SKIN:: Warm, dry. Normal color PSYCHIATRIC: Normal affect Course Vital Signs Vital signs: Vital Signs Temperature 97.6 F 06/06/23 20:22 Pulse Rate 74 06/06/23 20:22 Respiratory Rate 16 06/06/23 20:22 Blood Pressure 184/108 H 06/06/23 20:22 Pulse Oximetry 98 06/06/23 20:22 Oxygen Delivery Room Air 06/06/23 20:22 Temperature 97.6 F 06/06/23 20:22 Pulse Rate 74 06/06/23 20:22 Respiratory Rate 16 06/06/23 20:22 Blood Pressure 184/108 H 06/06/23 20:22 Pulse Oximetry 98 06/06/23 20:22 Oxygen Delivery Room Air 06/06/23 20:22 Medical Decision Making MDM Narrative Medical decision making narrative: -Course: 52-year-old female presenting with blood in her urine. Urine indicative of infection. Rest of her lab work within normal limits. Patient discharged on antibiotics -DDX includes but is not limited to: UTI, cystitis, pyelonephritis -Social determinants of health: patient works for the [employer], lives alone, denies use of drugs or alcohol -Independent interpretation of studies: labs normal. Urine indicative infection -Interventions: keflex 500mg -Shared decision making / Disposition: discharge -RX Keflex 500 mg b.i.d. x5 days Vital Signs Vital Signs: Vital Signs Temperature 97.6 F 06/06/23 20:22 Pulse Rate 74 06/06/23 20:22 Respiratory Rate 16 06/06/23 20:22 Blood Pressure 184/108 H 06/06/23 20:22 Pulse Oximetry 98 06/06/23 20:22 Oxygen Delivery Room Air 06/06/23 20:22 Temperature 97.6 F 06/06/23 20:22 Pulse Rate 74 06/06/23 20:22 Respiratory Rate 16 06/06/23 20:22 Blood Pressure 184/108 H 06/06/23 20:22 Pulse Oximetry 98 06/06/23 20:22 Oxygen Delivery Room Air 06/06/23 20:22 Lab Data 06/06/23 20:42 06/06/23 20:42 Labs:
[2023-06-06] MEDS: CEPHALEXIN 500 MG CAPSULE PO (22:41)
== END 2023-06-06 22:51 | disposition home or self-care (01) ==
PROVIDERS: Emergency Provider Emergency Medicine; PCP Internal Medicine
DX: N30.91 Cystitis, unspecified with hematuria (principal); I10 Essential (primary) hypertension
CPT/HCPCS: 36415; 80053; 85025; 86850; 86900; 86901; 87077; 87086; 87088; 87186; 99283; A9270

== ENCOUNTER 2024-07-18 12:16 | Emergency (ER) | payer OTHER, SELFPAY ==
[2024-07-18] VITALS (8 sets, daily range): BP systolic 131–149; BP diastolic 86–114; PULSE 72–108; RESP 15–21; TEMP 36.6; O2SAT 96–100
--- OUTSIDE RECORDS SUMMARY | 2024-07-18 12:19 | XMS_ITS | Encounter Summary ---
Author Organization [facility] Address [facility] [place] [address] Care Team Providers Care Metal Polisher And Buffer Apprentice Name Role Phone Almas Griffith MD Primary Care Provider [phone] Encounter Details Date Type Department Care Team (Latest Contact Info) Description 02/15/2024 SendinBlue Message Enc [facility] Multispecialty Care - [address], [address] [place] [address] [facility] Provider April 07, 2024 Social History Tobacco Use Types Packs/Day Years Used Date Smoking Tobacco: Never Passive Smoke Exposure: Never Smokeless Tobacco: Never Alcohol Use Standard Drinks/Week Comments Not Currently 0 (1 standard drink = 0.6 oz pur e alcohol) PHQ-2 Answer Date Recorded Patient Health Questionnaire-2 Score 0 01/09/2024 Comments No Sex and Gender Information Value Date Recorded Sex Assigned at Female 04/08/2024 1:14 PM FURNITURE SALES ASSOCIATE Legal Sex Female 9:15 AM FURNITURE SALES ASSOCIATE Gender Identity Not on file Sexual Orientation Not on file documented as of this encounter Functional Status * RETIRED Are you deaf or do you have serious difficulty hearing Answer Date of Assessment Author Status No 04/11/2022 3:00 PM FURNITURE SALES ASSOCIATE Activ e * RETIRED Are you blind or do you have serious difficulty seeing, even when wearing glasses? Answer Date of Assessment Author Status No 04/11/2022 3:00 PM FURNITURE SALES ASSOCIATE Activ e * Do you have serious difficulty walking or climbing stairs? Answer Date of Assessment Author Status No 04/11/2022 3:00 PM FURNITURE SALES ASSOCIATE Beatriz De Souza RN Active * Do you have difficulty dressing or bathing? Answer Date of Assessment Author Status No 04/11/2022 3:00 PM Beatriz Franco RN Active * Because of a physical, mental, or emotional condition, do you have difficulty doing errands alone such as visiting a doctor's office or shopping? Answer Date of Assessment Author Status No 04/11/2022 3:00 PM Beatriz Franco RN Active documented as of this encounter Mental Status * Because of a physical, mental, or emotional condition, do you have serious difficulty concentrating, remembering, or making decisions? Answer Entry Date Author Status No 04/11/2022 3:00 PM Beatriz Franco RN Active documented in this encounter Plan of Treatment Not on file documented as of this encounter Visit Diagnoses Not on filedocumented in this encounter Care Teams Metal Polisher And Buffer Apprentice Relationship Specialty Start Date End Date Almas Griffith MD [facility] [place] [id number] PCP - General FAMILY PRACTICE 01/09/24 documented as of this encounter
--- OUTSIDE RECORDS SUMMARY | 2024-07-18 12:19 | XMS_ITS | Clinical Summary ---
Author Organization [facility] Address [address] [place] [address] Care Team Providers Care Billet Shearer Name Role Phone Almas Griffith MD Primary Care Provider [phone] Allergies Active Allergy Reactions Criticality Noted Date Comments Iodinated Contrast Media Hives 04/10/2022 Patient states this is only when she was . Medications BANOPHEN 25 MG capsule Take 1 capsule (25 mg total) by mouth every 6 (six) hours as needed for Itching or Allergies. 0 Active albuterol sulfate HFA 108 (90 Base) MCG/ACT inhaler Inhale 2 puffs into the lungs every 6 (six) hours as needed for Shortness of breath. 0 Active famotidine (PEPCID) 20 MG tablet every 12 (twelve) hours. Active vitamin B-12 (CYANOCOBALAMIN) (CYANOCOBALAMIN) 1000 mcg tablet Take 1 tablet (1,000 mcg total) by mouth daily. 4 Active D-5000 125 MCG (5000 UT) Tab Take 1 tablet (125 mcg total) by mouth once a week. 4 Active atorvastatin (LIPITOR) 20 MG tabletIndications: Mixed hyperlipidemia TAKE 1 TABLET(20 MG) BY MOUTH EVERY NIGHT AT BEDTIME 90 tablet 3 5 Active MOUNJARO 2.5 MG/0.5ML injectionIndicatio ns:Type 2 diabetes mellitus without complication, without long-term current use of insulin ([facility]/HCC [facility]) ADMINISTER 2.5 MG UNDER THE SKIN EVERY 7 DAYS FOR DIABETES 2 mL 2 5 Active FLUoxetine (PROZAC) 20 MG capsuleIndications :Generalized anxiety disorder with panic attacks TAKE 1 CAPSULE(20 MG) BY MOUTH EVERY MORNING 30 capsule 2 5 Active traZODone (DESYREL) 50 MG tabletIndications: Primary insomnia Take 1 tablet (50 mg total) by mouth nightly at bedtime. 30 tablet 2 5 Active Active Problems Problem Noted Date Diagnosed Date Elevated blood pressure read ing in office without diagnosis of hypertension 04/08/2024 Tooth infection 04/08/2024 Mixed hyperlipidemia 02/25/2024 Type 2 diabetes mellitus wit hout complication, without long-term current use of insulin ([facility]) 01/09/2024 Generalized anxiety disorder with panic attacks 01/09/2024 Primary insomnia 01/09/2024 SBO (small bowel obstruction) ([facility]) 04/10/2022 COVID-19 08/14/2019 Adhesive capsulitis of right shoulder 05/01/2019 Adiposity 08/09/2013 Overview (05/01/2019): OBESITY NOS Encounters Date Type Department Care Team Description 07/18/2024 Telephone [facility] Family Medicine [address] [address] Almas Griffith MD Blood Pressure from Last 3 Months Immunizations Immunization Administration Dates Next Due Influenza (Generic) 02/13/2012 Family History Medical History Relation Comments None Father Cancer Maternal Grandmother Arthritis Mother None Mother Cancer Sister Relation Status Comments Father Maternal Grandmother Mother Sister Social History Tobacco Use Types Packs/Day Years Used Date Smoking Tobacco: Never Passive Smoke Exposure: Never Smokeless Tobacco: Never Tobacco Cessation:Counseling Given: No Alcohol Use Standard Drinks/Week Comments Not Currently 0 (1 standard drink = 0.6 oz pur e alcohol) PHQ-2 Answer Date Recorded Patient Health Questionnaire-2 Score 0 04/08/2024 Comments No Sex and Gender Information Value Date Recorded Sex Assigned at Female 04/08/2024 1:14 PM FISH STRINGER ASSEMBLER Legal Sex Female 9:15 AM FISH STRINGER ASSEMBLER Gender Identity Not on file Sexual Orientation Not on file Last Filed Vital Signs Vital Sign Reading Time Taken Comments Blood Pressure 160/96 04/08/2024 3:41 PM FISH STRINGER ASSEMBLER Pulse 78 04/08/2024 1:47 PM FISH STRINGER ASSEMBLER Temperature 36.6 C (97.9 F) 04/08/2024 1:47 PM FISH STRINGER ASSEMBLER Respiratory Rate 18 04/08/2024 1:47 PM FISH STRINGER ASSEMBLER Oxygen Saturation 98% 04/08/2024 1:47 PM FISH STRINGER ASSEMBLER Inhaled Oxygen Concentration - - Weight 63.7 kg (140 lb 6.4 oz) 04/08/2024 1:47 P M FISH STRINGER ASSEMBLER Height 149.9 cm (4' 11 ) 04/08/2024 1:47 PM FISH STRINGER ASSEMBLER Body Mass Index 28.36 04/08/2024 1:47 PM FISH STRINGER ASSEMBLER Plan of Treatment Health Maintenance Due Date Last Done Comments Colorectal Cancer Screening Colonoscopy (10 Years) 1970 Diabetes: Retinopathy Eye Exam 1988 Pneumococcal Vaccine: 50+ Years (1 of 2 - PCV) 1989 Hemoglobin A1C 10/06/2024 04/08/2024, 01/09/2024 Kidney Health Evaluation 12/23/2024 Pos tponed from 1970 (Per Provider Recommendation) Annual Physical 01/08/2025 01/09/2024 COVID-19 Vaccine (1 - season) 2025 Postponed from 11/25/2023 (Patient Refused) DTaP, Tdap and Td Vaccines (1 - Tdap) 01/08/2025 Postponed from 1989 (Patient Refused) Hepatitis B Vaccines (1 of 3 - 19+ 3-dose series) 01/08/2025 Postponed from 1989 (Patient/Guardian Refusal) Zoster Vaccines (1 of 2) 01/08/2025 Pos tponed from 2020 (Patient Refused) Lipid Panel 02/21/2025 02/22/2024 Mammogram Screening 01/20/2026 01/21/2024, 03/28/2023, 08/14/2022, Additional history exists Hepatitis C Completed 02/22/2024 PHQ-2 (Physician [place]) Completed 04/08/2024 Meningococcal B Vaccine Aged Out No l onger eligible based on patient's age to complete this topic Meningococcal Vaccine Aged Out No ml abhi eligible based on patient's age to complete this topic RSV Immunizations Under 20 Months Aged Out No longer eligible based on patient's age to complete this topic Procedures Procedure Name Priority Date/Time Associated Diagnosis Comments HEMOGLOBIN, GLYCOSYLATED Routine 04/08/2024 Type 2 diabetes mellitus without complication, without long-term current use of insulin (CMS/HCC HHS/HCC) HEPATITIS C ANTIBODY W/RFX TO HCV RNA Routine 02/22/2024 1:24 PM FISH STRINGER ASSEMBLER Encounter for hepatitis C screening test for low risk patient LIPID PANEL Routine 02/22/2024 1:24 PM FISH STRINGER ASSEMBLER Type 2 diabetes mellitus without complication, without long-term current use of insulin (CMS/HCC HHS/HCC) from Last 3 Months or Most Recently Relevant to Health Maintenance Results * A1C (BACK OFFICE) (04/08/2024) HGB A1C 5.3 % [facility] 04/08/2024 Almas Griffith MD LABORATORY Final Result [facility] [address] [place] [address], * HEPATITIS C ANTIBODY W/RFX TO HCV RNA ([facility] ONLY) (02/22/2024 1:24 PM FISH STRINGER ASSEMBLER) HEPATITIS C AB NON-REACT JOSE MIGUEL NON-REACT JOSE MIGUEL [facility] Comment: HCV antibody was non-reactive. There is no laboratory evidence of HCV infection. In most cases, no further action is required. However, if recent HCV exposure is suspected, a test for HCV RNA (test code 73197) is suggested. For additional information please refer to http://education.[employer].com/faq/IDL35z7 (This link is being provided for informational/ educational purposes only.) 02/22/2024 1:24 PM FISH STRINGER ASSEMBLER 02/22/2024 1:25 PM FISH STRINGER ASSEMBLER Narrative [facility] - 02/23/2024 5:20 AM FISH STRINGER ASSEMBLER FASTING:YES FASTING: YES Resulting Agency Comment Performing Organization Information: Site ID: [id number] Name: [facility] Address: [address] [address] Director: Chapincito Knox MD Almas Griffith MD LABORATORY Final Result [facility] [address] [place] [address], * (ABNORMAL) LIPID PANEL (02/22/2024 1:24 PM FISH STRINGER ASSEMBLER) Pathologist [facility] CHOLESTEROL 208(H) <200 mg/dL [place] HDL 75 > OR = 50 mg/dL [place] TRIGLYCERIDES 66 <150 mg/dL [place] LDL (CALCULATED) 117(H) mg/dL (calc) [place] Comment: Reference range: <100 Desirable range <100 mg/dL for primary prevention; <70 mg/dL for patients with CHD or diabetic patients with > or = 2 CHD risk factors. LDL-C is now calculated using the Jim-Ruchi calculation, which is a validated novel method providing better accuracy than the Friedewald equation in the estimation of LDL-C. Jim SS et al. FARHANA. 2013;310(19): 6583-1035 (http://education.[employer]/faq/QDW446) CHOL/HDL RATIO 2.8 <5.0 (calc) [place] NON HDL CHOLESTEROL 133(H) <130 mg/dL (calc) [place] Comment: For patients with diabetes plus 1 major ASCVD risk factor, treating to a non-HDL-C goal of <100 mg/dL (LDL-C of <70 mg/dL) is considered a therapeutic option. 02/22/2024 1:24 PM FISH STRINGER ASSEMBLER 02/22/2024 1:25 PM FISH STRINGER ASSEMBLER Narrative [facility] - 02/23/2024 5:20 AM FISH STRINGER ASSEMBLER FASTING:YES FASTING: YES Resulting Agency Comment Performing Organization Information: Site ID: [id number] [facility] Address: [address] [place] [address] Director: Chapincito Knox Almas Griffith MD LABORATORY Final Result [facility] [place] [address] [place] [address], from Last 3 Months or Most Recently Relevant to Health Maintenance Insurance [employer] OPEN [facility]ESS [facility] Care Teams Billet Shearer Relationship Specialty Start Date End Date Almas Griffith MD [facility] [place] [address] PCP - General FAMILY PRACTICE 01/09/24
--- OUTSIDE RECORDS SUMMARY | 2024-07-18 12:19 | XMS_ITS | Clinical Summary ---
Author Organization [facility] [address] Address [address] [place] [address] Care Team Providers Care Oracle Adf Developer Name Role Phone Unavailable Primary Care Provider Unavailabl e Medications benzonatate (TESSALON) 200 mg capsule Take 1 Capsule (200 mg) by mouth 3 times daily. 30 Capsule 07/17/2019 Active Active Problems No known active problems Social History Tobacco Use Types Packs/Day Years Used Date Smoking Tobacco: Never Assessed Comments Unknown Sex and Gender Information Value Date Recorded Sex Assigned at Not on file Legal Sex Female 2:06 PM CDT Gender Identity Not on file Sexual Orientation Not on file Last Filed Vital Signs Vital Sign Reading Time Taken Comments Blood Pressure 120/76 07/17/2019 2:20 PM CDT Pulse 94 07/17/2019 2:20 PM CDT Temperature 38.9 C (102 F) 07/17/2019 2:20 PM CDT Respiratory Rate 18 07/17/2019 2:20 PM CDT Oxygen Saturation 95% 07/17/2019 2:20 PM CDT Inhaled Oxygen Concentration - - Weight - - Height - - Body Mass Index - - Plan of Treatment Health Maintenance Due Date Last Done Comments DTAP/TDAP/TD VACCINES (1 - Tdap) 1989 HEPATITIS B VACCINES (1 of 3 - 19+ 3-dose series) 05/1989 HPV/Cotest (21-29) 08/27/1991 CERVICAL CANCER SCREENING 2000 HPV/Cotest (30-65) 2000 PAP SMEAR 2000 BREAST CANCER SCREENING 2010 COLORECTAL SCREENING 08/27/2015 Colorectal Cancer Screening 08/27/2015 FIT-DNA Q 3 years 08/27/2015 FIT/FOBT Q 1 year 08/27/2015 Flex Sig/CT Colonography Q 5 years 08/27/2015 ZOSTER VACCINE (1 of 2) 2020 INFLUENZA VACCINE (#1) 2023 Insurance [employer] PPO [employer] HMO OPEN ACCESS
--- OUTSIDE RECORDS SUMMARY | 2024-07-18 12:20 | XMS_ITS | Encounter Summary ---
Author Organization [facility] Address Formerly [facility], [facility] [place] [address] Care Team Providers Care Road Roller Operator Name Role Phone Almas Griffith MD Primary Care Provider [phone] Reason for Visit * Reason Onset Date Comments Blood Pressure 07/18/2024 Encounter Details Date Type Department Care Team (Late st Contact Info) Description 07/18/2024 Telephone [facility] Family Medicine [facility] [address] [place] [address] Almas Griffith MD [address] [facility] [place] [address] Blood Pressure Social History Tobacco Use Types Packs/Day Years Used Date Smoking Tobacco: Never Passive Smoke Exposure: Never Smokeless Tobacco: Never Alcohol Use Standard Drinks/Week Comments Not Currently 0 (1 standard drink = 0.6 oz pur e alcohol) PHQ-2 Answer Date Recorded Patient Health Questionnaire-2 Score 0 04/08/2024 Comments No Sex and Gender Information Value Date Recorded Sex Assigned at Female 04/08/2024 1:14 PM CUPOLA MELTER Legal Sex Female 9:15 AM CUPOLA MELTER Gender Identity Not on file Sexual Orientation Not on file documented as of this encounter Functional Status * RETIRED Are you deaf or do you have serious difficulty hearing Answer Date of Assessment Author Status No 04/11/2022 3:00 PM CUPOLA MELTER Activ e * RETIRED Are you blind or do you have serious difficulty seeing, even when wearing glasses? Answer Date of Assessment Author Status No 04/11/2022 3:00 PM CUPOLA MELTER Activ e * Do you have serious difficulty walking or climbing stairs? Answer Date of Assessment Author Status No 04/11/2022 3:00 PM Beatriz Franco RN Active * Do you have difficulty [...] Franco RN Active documented in this encounter Progress Notes * Lorie Tierney MA - 07/18/2024 11:41 AM CDT Patient called stating she woke up with a BP of 205/115 and is having a severe headache as well. Patient was wanting to be seen LIZZIE. I advised patient with that BP and with the symptoms it would be best she be evaluated in the ER. Patient VU and states she was going to [facility] in [place] by personal vehicle right now. documented in this encounter Plan of Treatment Not on file documented as of this encounter Visit Diagnoses Not on filedocumented in this encounter Care Teams Road Roller Operator Relationship Specialty Start Date End Date Almas Griffith MD [facility] [place] [address] PCP - General FAMILY PRACTICE 01/09/24 documented as of this encounter
--- OUTSIDE RECORDS SUMMARY | 2024-07-18 12:20 | XMS_ITS | Referral Summary ---
Author Organization [facility] [place] [facility] Address [address] [place] [address] Care Team Providers Care Costume Shop Manager Name Role Phone Martin White MD Unavailable [phone] Almas Griffith MD Primary Care Provider [phone] Allergies Active Allergy Reactions Criticality Noted Date Comments Iodinated Contrast Media Hives Medium 04/10/2022 Medications albuterol HFA (PROVENTIL HFA,VENTOLIN HFA,PROAIR HFA) 90 mcg/actuation inhaler INL 2 PFS PO Q 6 H PRF SOB OR WHZ 07/31/2019 Active ondansetron (ZOFRAN) 4 mg tablet TK 1 T PO Q 8 H PRF NAUSEA OR VOM 07/31/2019 Active ALPRAZolam (XANAX) 1 mg tablet Take 1 tablet (1 mg total) by mouth daily as needed 12/05/2023 Active Vitamin D3 125 mcg (5,000 unit) tablet TAKE 1 TABLET BY MOUTH WEEKLY 09/21/2023 Active cyanocobalamin (Vitamin B-12) 1,000 mcg tablet Take 1 tablet (1,000 mcg total) by mouth daily 09/19/2023 Active famotidine (PEPCID) 20 mg tablet every 12 hours Active Mounjaro 5 mg/0.5 mL pen injector INJECT 5MG UNDER THE SKIN DIRECTED ONCE WEEKLY. 12/15/2023 Active naproxen (NAPROSYN) 500 mg tablet Take 1 tablet (500 mg total) by mouth 2 (two) times a day with meals 60 tablet 12/24/2023 Active Active Problems Problem Noted Date Diagnosed Date COVID-19 08/14/2019 Obesity 08/09/2013 Overview (06/30/2016): OBESITY NOS Immunizations Immunization Administration Dates Next Due Influenza, Split 02/13/2012 Social History Tobacco Use Types Packs/Day Years Used Date Smoking Tobacco: Never Assessed Alcohol Use Standard Drinks/Week Comments No 0 (1 standard drink = 0.6 oz pur e alcohol) Personal Safety Answer Date Recorded Have you ever been in or are you currently in a harmful physical or emotional relationship or is someone making you feel afraid or unsafe? 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 Gender Identity Not on file Sexual Orientation Not on file Last Filed Vital Signs Vital Sign Reading Time Taken Comments Blood Pressure 142/85 12/24/2023 8:05 AM CDT Pulse 69 12/24/2023 8:05 AM CDT Temperature 36.5 C (97.7 F) 12/24/2023 3:31 AM CDT Respiratory Rate 14 12/24/2023 8:05 AM CDT Oxygen Saturation 99% 12/24/2023 8:05 AM CDT Inhaled Oxygen Concentration - - Weight 73 kg (160 lb 15 oz) 12/24/2023 3:31 AM C DT Height 149.9 cm (4' 11 ) 03/10/2013 9:37 AM FOAM RUBBER MOLDER Body Mass Index - - Plan of Treatment Not on file Procedures Procedure Name Priority Date/Time Associated Diagnosis Comments DIAGNOSTIC MAMMOGRAM BILATERAL W ANTONY Schedule Routine, Read Routine (OP Routine) 01/21/2024 1:52 PM CDT Follow-up examination of abnormal mammogram from Last 3 Months or Most Recently Relevant to Health Maintenance Results * Diagnostic Mammogram Bilateral W Antony (01/21/2024 1:52 PM CDT) Anatomical Region Laterality Modality Breast Bilateral Mammography 01/21/2024 2:34 PM CDT Narrative 01/21/2024 4:30 PM CDT EXAM DESCRIPTION: US BREAST RIGHT LIMITED; DIAGNOSTIC MAMMOGRAM BILATERAL W ANTONY REASON FOR STUDY: Follow-up COMPARISON: March 28, 2023, August 14, 2022, and August 07, 2022. MAMMOGRAM TECHNIQUE: 2D and 3D tomosynthesis mammographic images were obtained. Computer aided detection was utilized. MAMMOGRAM FINDINGS: DENSITY: There are scattered areas of fibroglandular density. There are no suspicious masses. A mass in the posterior right breast is partially included and the calcifications have become more coarse. This is consistent with a fibroadenoma. There are no suspicious calcifications. There is no unexplained architectural distortion. ULTRASOUND TECHNIQUE: Grayscale interrogation of the 9 o'clock region of the right breast/breasts acquired. Selected color doppler/spectral images saved to PACS. ULTRASOUND FINDINGS: A circumscribed cystic structure which is mostly isoechoic but contains some cystic spaces is again noted. It is measuring 8 mm, where previously it measured 9 mm. This could just relate to technical differences in measurement. IMPRESSION: Probably benign structure in the right breast. Six-month follow-up right breast ultrasound only is recommended. BI-RADS 3 - Probably benign finding. Short-interval follow-up recommended. THIS IS AN ELECTRONICALLY VERIFIED FINAL REPORT 01/21/2024 4:30 PM - Electronically signed by Romina Mcgovern M.D. LD: KAYCEE Report ID: [id number] Reading Location: [facility] Kenny Sinha MD IMG MAMMO PROCEDURES Final Re sult from Last 3 Months or Most Recently Relevant to Health Maintenance Insurance [employer] OPEN ACCESS COUNTS INCLUDE [address] [facility] AT [facility] [id number] Care Teams Costume Shop Manager Relationship Specialty Start Date End Date Almas Griffith MD PCP - General Family Medicine 01/21/24 Martin White MD 08/14/19
--- OUTSIDE RECORDS SUMMARY | 2024-07-18 12:20 | XMS_ITS | Clinical Summary ---
Author Organization [facility] at [facility] Office Center Address [address] [place] [address] Care Team Providers Care Cable Driller Name Role Phone Martin White MD Unavailable [phone] Almas Griffith MD Primary Care Provider [phone] Allergies Active Allergy Reactions Criticality Noted Date [...] Administration Dates Next Due Influenza, Split 02/13/2012 Surgical History Surgery Date Site/Laterality Comments SLEEVE GASTROPLASTY 03/26/2013 - 03/25/2014 HYSTERECTOMY 03/26/2007 - 03/25/2008 Total CHOLECYSTECTOMY 03/26/1999 - 03/25/2000 OOPHORECTOMY 03/26/2007 - 03/25/2008 Bilateral Medical History Medical History Date Comments Adiposity Obesity COVID-19 virus detected 07/18/2019 Family History Medical History Relation Name Comments Other Father Alive and well; she denies any health issues in family Other Mother Alive and well; Breast cancer Neg Hx Relation Name Status Comments Father Alive Mother Alive Social History Tobacco Use Types Packs/Day Years [...] on file Legal Sex Female 7:17 PM 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 Gender Identity Not on file Sexual Orientation Not on file Obstetrics History Para Term AB IAB SAB Ectopic Multiple Livin g Live Births 2 2 2 Date Outcome GA Total Labor Labor/2nd/3rd Weight Sex Type Anes PTL Mishel A1 A5 Name Clin Term Term Last Filed Vital Signs Vital Sign Reading [...] cm (4' 11 ) 03/10/2013 9:37 AM 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 Body Mass Index - - Plan of Treatment Health Maintenance Due Date Last Done Comments Colon Cancer Screening-Colonoscopy 1970 Depression Screening 1970 Hepatitis C Screening 1970 DTaP/Tdap/Td Vaccine (1 - Tdap) 1981 Hepatitis B Screening 1988 Regular Well Visit/Exam 18-64 1988 Zoster Vaccine (1 of 2) 2020 Influenza Vaccine (Season Ended) 2024 02/13/2012 Breast Cancer Screening-Mammogram 01/20/2025 01/21/2024, 08/07/2022 Pneumococcal vaccine <65 Aged Out No longer eligible based on [...] Romina Mcgovern M.D. LD: KAYCEE Report ID: [id number] Reading Location: [facility] Kenny Sinha MD IMG MAMMO PROCEDURES Final Re sult from Last 3 Months or Most Recently Relevant to Health Maintenance Insurance [employer] OPEN ACCESS [facility] [id number] Care Teams Cable Driller Relationship Specialty Start Date End Date Almas Griffith MD PCP - General Family Medicine 01/21/24 Martin White MD 08/14/19
--- OUTSIDE RECORDS SUMMARY | 2024-07-18 12:20 | XMS_ITS ---
Author Organization [facility] [place] ([address]) Address [address] [address] Care Team Providers Care Slack Cooper Name Role Phone ChristopherMartin Primary Care Provider Unavailab le Trinidad Crabtree Unavailable [phone] ZZ-Migration, Provider Unavailable Unavailab le REASON FOR VISIT [facility] To [facility] Conversion Encounter Medications Medication SIG (Take, Route, Fr equency, Duration) Notes Start Date End Date Status Famotidine 20 MG 1 tab(s) orally 2 times a day Active Cetirizine HCl 10 MG 1 tab(s) orally bid 0 Active Medrol 4 MG as directed Active Encounters Encounter Location Date Provider Diagnosis [address] [address] 09/08/2023 Provider ZZ-Migration Urticaria, unspecified L50.9 Assessments Encounter Date Diagnosis (ICD Code) Assessment Notes Treatment Notes Treatment Clinical Notes Section Notes 09/08/2023 Urticaria, unspecified (ICD-10 - L50.9) Plan Of Treatment Medication Medication Name Sig Start Date Stop Date Notes Famotidine 20 MG 1 tab(s) orally 2 times a day Cetirizine HCl 10 MG 1 tab(s) orally bid 09/10/2019 Medrol 4 MG as directed Progress Notes * Melinda PRATT RDOB: [birth year] (53 yo F)Acc No.[id number]:09/08/2023 Patient: Shawn Melinda HERNANDEZ Provider: Patel Graff :1970 A ge:53 Y S ex:Female Date:09/08/2023 Address:[address] [place], [place] [id number] Pcp:Martin White Subjective: * Chief Complaints: * 1 . [facility] To Med[facility]pan Conversion Encounter. * Medical History: Objective: * Vitals: Assessment: * Assessment: 1. U rticaria, unspecified - L50.9 (Primary) Plan: * Treatment: * Billing Information: * Visit Code: * Procedure Codes: * Electronic signature of Prov ider ZZ-Migration on 07/18/2024 at 12:20 PM CDT Sign off status: Pending * Provider: Patel Graff Date: 09/08/2023 Generated for Rose fajardo/Maxi/Locoitting on: 0 07/18/2024 12:20 PM CDT
--- OUTSIDE RECORDS SUMMARY | 2024-07-18 12:20 | XMS_ITS | Patient Health Record ---
Author Organization [facility] [place] ([address]) Address [address] [place] [address] Care Team Providers Care Quarrying Manager Name Role Phone Martin White Primary Care Provider Unavailab le Trinidad Crabtree Unavailable [phone] CHERISE-Prerna, Provider Unavailable Unavailab le Reason For Referral No Information Medications Medication SIG (Take, Route, Frequency, Duration) Notes Start Date End Date Status MEDROL DOSEPAK 4 mg as directed Active Famotidine 20 MG 1 tab(s) orally 2 ti mes a day Active Cetirizine HCl 10 MG 1 tab(s) orally bid 0 Active Medrol 4 MG as directed Active FAMOTIDINE 20 mg 1 tab(s) orally 2 ti mes a day Active CETIRIZINE HYDROCHLORIDE 10 mg 1 tab(s) orally bid 09/10/2019 Active Social History Tobacco Use: Social History Observation Description Date Details (start date - stop date) Never Smoker NA - NA Smoking Smart Form: Question Answer Notes Are you a: never smoker Problems Problem Type SNOMED Code ICD Code Onset Dates Problem Status W/U Status Risk Notes Problem Shortness of breath (559616332) Shortness of breath (R06.02) Active confirmed Problem Urticaria (73592041) Urticaria, unspecified (L50.9) Active confirmed Encounters Encounter Location Date Provider Diagnosis [place] - [place] [address] 09/08/2023 Provider DivyaZ-Migration Urticaria, unspecified L50.9 Assessments Encounter Date Diagnosis (ICD Code) Assessment Notes Treatment Notes Treatment Clinical Notes Section Notes 09/08/2023 Urticaria, unspecified (ICD-10 - L50.9) Plan Of Treatment No Information Insurance Providers Payer Name Payer Address Payer Phone Subscriber Number Group Number Insured Name Patient Relationship to Insured Coverage Start Date Coverage End Date [employer] Access [address] [place] [phone] [id number] Melinda Belle Self - patient is the insured Medical (General) History Medical History History ICD Code COVID-19 Surgical History Surgery Date(Month/Year) Hospitalization History Reason Date(Month/Year) COVID-19 06/2018
--- OUTSIDE RECORDS SUMMARY | 2024-07-18 12:20 | XMS_ITS | CONTINUITY OF CARE DOCUMENT ---
Author Name ramon, ramno Address Unknown Organization [facility] Address [address] [facility] [address] [place] [address] Phone [phone] Care Team Providers Care Fretted Instruments Inspector Name Role Phone Dar Steven MD Unavailable [phone] Dar Steven MD Unavailable PROBLEMS Condition Status Date Provider Notes Anxiety active Dar Steven MD HTN essential, hx of active Dar Steven MD Obesity active Dar Steven MD GERD active FRANCESCO HILL MD HTN controlled completed - Dar johnson MD ENCOUNTERS Date Type Provider Location Encounter Diag nosis - In-person encounter Office Visit Dar Steven MD [place] [facility] HTN controlledObesityHTN essential, hx ofAnxiety - In-person encounter Office Visit FRANCESCO HILL MD [place] [facility] - In-person encounter Office Visit FRANCESCO HILL MD [place] [facility] GERD - In-person encounter Office Visit Hansa Mason [place] [facility] - In-person encounter Office Visit Hansa [facility] Office - In-person encounter Office Visit Hansa Mason [place] [facility] - In-person encounter Office Visit Hansa Mason [place] [facility] VITAL SIGNS Date Observation Value Provider Body Mass Index (Ratio) 33.73 kg/m2 Chris Steven MD blood pressure, diastolic 86 mm[Hg] Da stalin Sendy blood pressure, systolic 132 mm[Hg] Dac ia Sendy oxygen saturation, oximetry 97 % Betty Sendy respiratory rate E&M 16 /min Betty V oss pulse rate 75 /min Betty Sendy weight E&M 167 [lb_av] Betty Sendy height E&M 59 [in_i] Betty Sendy ALLERGIES No Known Drug Allergies RESULTS Date Observation Value Provider Reference Range Interpretation Location hemoglobin A1C, blood, as % of total hemoglobin 5.0 % [facility] 4.8-5.6 6 lipoprotein, beta, serum, point, quantitative, calculated 126 mg/dL [facility] 0-99 High 6 very low density lipoproteins 12 mg/dL [facility] 5-40 6 HDL cholesterol, serum 77 mg/dL [facility] >39 6 triglyceride, serum, random 61 mg/dL [facility] 0-149 6 cholesterol, serum 215 mg/dL [facility] 100-199 High basophil count, absolute 0.0 x10E3/uL [facility] 0.0-0.2 Eosinophil Absolute Count 0.1 X10E3/UL [facility] 0.0-0.4 6 monocyte count, blood, automated 0.3 X10E3/UL [facility] 0.1-0.9 6 lymphocyte count, blood, automated 1.5 X10E3/UL [facility] 0.7-3.1 6 Absolute Neutrophils 1.9 X10E3/UL [facility] 1.4-7.0 6 basophils as percent of blood leukocytes 1 % [facility] Not Estab. 6 eosinophils as percent of blood leukocytes 2 % [facility] Not Estab. 6 monocytes as percent of blood leukocytes 8 % [facility] Not Estab. lymphocytes as percent of blood leukocytes 39 % [facility] Not Estab. neutrophils as percent of blood leukocytes 50 % [facility] Not Estab. platelet count 305 X10E3/UL [facility] 407-595 2380/04/0 6 red blood cell distribution width 14.6 % [facility] 12.3-15.4 mean corpuscular hemoglobin concentration, RBC 33.6 G/DL [facility] 31.5-35.7 mean corpuscular hemoglobin, RBC 27.8 pg [facility] 26.6-33.0 mean corpuscular volume, RBC 83 fL [facility] 79-97 hematocrit, blood 40.2 % [facility] 34.0-46.6 hemoglobin, blood 13.5 g/dL [facility] 11.1-15.9 erythrocyte (RBC) count 4.85 X10E6/UL [facility] 3.77-5.28 6 leukocyte count, blood 3.8 X10E3/UL [facility] 3.4-10.8 6 alanine aminotransferase (SGPT), serum 9 1/L [facility] 0-32 6 aspartate aminotransferase (SGOT), serum 17 1/L [facility] 0-40 6 alkaline phosphatase, serum 67 1/L [facility] 39-117 6 bilirubin, serum, total 1.1 mg/dL [facility] 0.0-1.2 6 albumin/globulin ratio, serum 1.5 [facility] 1.2-2.2 6 globulin, serum 3.0 [facility] 1.5-4.5 6 albumin, serum 4.5 g/dL [facility] 3.5-5.5 6 protein, total, serum 7.5 g/dL [facility] 6.0-8.5 6 calcium, serum 9.2 mg/dL [facility] 8.7-10.2 6 carbon dioxide, venous blood 23 mmol/L [facility] 18-29 6 chloride, serum 105 mmol/L [facility] 96-106 6 potassium, serum 4.8 mmol/L [facility] 3.5-5.2 6 sodium, serum 144 mmol/L [facility] 147-061 3773/04/0 6 urea nitrogen/creatinine ratio, serum 18 [facility] 9-23 6 eGFR if 83 mL/min/{1 .73_m2} [facility] >59 6 eGFR if not 72 mL/min/{1 .73_m2} [facility] >59 6 creatinine, serum 0.95 mg/dL [facility] 0.57-1.00 6 urea nitrogen, blood 17 mg/dL [facility] 6-24 6 blood glucose, random 78 mg/dL [facility] 65-99 HISTORY OF MEDICATION USE Medication Status Instructions Dates Provider Indications Com ments AMLODIPINE BESYLATE 5 MG ORAL TABLET active one tab daily 8 Dar Steven MD LISINOPRIL 20 MG ORAL TABLET completed ONE TABLET DAILY 6 - 8 Betty Kaba HTN controlled OMEPRAZOLE 20 MG ORAL CAPSULE DELAYED RELEASE active ONE TABLET DAILY 6 Dar Steven MD VALIUM 5 MG ORAL TABLET active ONE TABLET NIGHTLY NEEDED 6 Dar Steven MD SOCIAL HISTORY Date Observation Value Provider social history reviewed E&M revi ewed - no changes required Dar Steven MD INSURANCE PROVIDERS Payer name Policy type / Coverage type [place] red libertarian ID [employer] OPEN ACCESS Other [id number] ADVANCE DIRECTIVES Name Date DISCUSSED - NO DECISION MADE TREATMENT PLAN Date Name Performer Cardiology New Patient Dar aguilar MD Cardiology New Patient Dar aguilar MD Cardiology New Patie nt: B P today: 132/86 Her updated medication list for this problem includes: Amlodipine Besylate 5 Mg Oral Tablet (Amlodipine besylate) ..... One tab daily Dar Steven MD Date Name TSH, 3RD GENERATION W/REFLEX TO FT4 HEMOGLOBIN A1c LIPID PANEL CBC (INCLUDES DIFF/P LT) COMPREHENSIVE METABO LIC PANEL, W/EGFR
--- NOTE | 2024-07-18 13:23 | ECG_ITS ---
Test Date: 2024-07-18 13:44:55 Measurements Intervals [place] Rate: 72 P: 54 WI: 162 QRS: 32 QRSD: 80 T: 51 QT: 377 QTc: 413 Interpretive Statements SINUS RHYTHM NORMAL ECG No previous ECG available for comparison Electronically Signed On 07-18-2024 14:22:14 CDT by Andreas Lockwood D.O.
--- OUTSIDE RECORDS SUMMARY | 2024-07-18 13:31 | XMS_ITS | Clinical Summary ---
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 LD: KAYCEE Report ID: [id number] Reading Location: [facility] Kenny Sinha MD IMG MAMMO PROCEDURES Final Re sult from Last 3 Months or Most Recently Relevant to Health Maintenance Insurance [employer] OPEN ACCESS [facility] [id number] Care Teams Display Fabricator Relationship Specialty Start Date End Date Almas Griffith MD PCP - General Family Medicine 01/21/24 Martin White MD 08/14/19
--- OUTSIDE RECORDS SUMMARY | 2024-07-18 13:31 | XMS_ITS | Encounter Summary ---
Author Organization [facility] Address [facility] [place] [address] Care Team Providers Care Coordinate Measuring Equipment Operator Name Role Phone Almas Griffith MD Primary Care Provider [phone] Reason for Visit * Reason Onset Date Comments Blood Pressure 07/18/2024 Encounter Details Date Type Department Care Team (Late st Contact Info) Description 07/18/2024 Telephone [facility] Medical [facility] Family Medicine [facility] [address] [place] [address] Almas Griffith MD [address] [place] [place] [address] Blood Pressure Social History Tobacco [...] Sex Assigned at Female 04/08/2024 1:14 PM ROOM DESIGNER Legal Sex Female 9:15 AM ROOM DESIGNER Gender Identity Not on file Sexual Orientation Not on file documented as of this encounter Functional Status * RETIRED Are you deaf or do you have serious difficulty hearing Answer Date of Assessment Author Status No 04/11/2022 3:00 PM ROOM DESIGNER Activ e * RETIRED Are you blind or do you have serious difficulty seeing, even when wearing glasses? Answer Date of Assessment Author Status No 04/11/2022 3:00 PM ROOM DESIGNER Activ e * Do you have serious [...] VU and states she was going to [facility] in [place] by personal vehicle right now. documented in this encounter Plan of Treatment Not on file documented as of this encounter Visit Diagnoses Not on filedocumented in this encounter Care Teams Coordinate Measuring Equipment Operator Relationship Specialty Start Date End Date Almas Griffith MD [facility] [place] [address] PCP - General FAMILY PRACTICE 01/09/24 documented as of this encounter
--- OUTSIDE RECORDS SUMMARY | 2024-07-18 13:31 | XMS_ITS | CONTINUITY OF CARE DOCUMENT ---
Author Name ramon, ramon Address Unknown Organization [facility] Address [address] [facility] [address] [place] [address] Phone [phone] Care Team Providers Care Monorail Hooker Name Role Phone Dar Steven MD Unavailable [phone] Dar Steven MD Unavailable [phone] PROBLEMS Condition Status Date Provider Notes HTN controlled completed - Dar johnson MD GERD active FRANCESCO HILL MD Obesity active Dar Steven MD HTN essential, hx of active Dar Steven MD Anxiety active Dar Steven MD ENCOUNTERS Date Type Provider Location Encounter Diag nosis - In-person encounter Office Visit Dar Steven MD [facility] HTN controlledObesityHTN essential, hx ofAnxiety - In-person encounter Office Visit FRANCESCO HILL MD [facility] - In-person encounter Office Visit FRANCESCO HILL MD [facility] GERD - In-person encounter Office Visit [facility] - In-person encounter Office Visit [facility] - In-person encounter Office Visit [facility] - In-person encounter Office Visit [facility] VITAL SIGNS Date Observation Value Provider [...] Not Estab. platelet count 305 X10E3/UL [employer] [id number] 8353/04/0 6 red blood cell distribution width 14.6 [...] 3.5-5.2 6 sodium, serum 144 mmol/L [employer] [phone]/04/0 6 urea nitrogen/creatinine ratio, serum 18 [employer] [...] Payer name Policy type / Coverage type [place] red constitution party ID [employer] OPEN ACCESS Other [id number] ADVANCE DIRECTIVES Name Date DISCUSSED - [...]
--- OUTSIDE RECORDS SUMMARY | 2024-07-18 13:31 | XMS_ITS | Encounter Summary ---
Author Organization [facility] Address [facility] [place] [address] Care Team Providers Care Independent Living Specialist Name Role Phone Almas Griffith MD Primary Care Provider [phone] Encounter Details Date Type Department Care Team (Latest Contact Info) Description 02/15/2024 ComAbility Message Enc [facility] - [address], [address] [place] [address] [facility] Provider April 07, 2024 Social History Tobacco [...] Sex Assigned at Female 04/08/2024 1:14 PM PLATEMAN Legal Sex Female 9:15 AM PLATEMAN Gender Identity Not on file Sexual Orientation Not on file documented as of this encounter Functional Status * RETIRED Are you deaf or do you have serious difficulty hearing Answer Date of Assessment Author Status No 04/11/2022 3:00 PM PLATEMAN Activ e * RETIRED Are you blind or do you have serious difficulty seeing, even when wearing glasses? Answer Date of Assessment Author Status No 04/11/2022 3:00 PM PLATEMAN Activ e * Do you have serious difficulty walking or climbing stairs? Answer Date of Assessment Author Status No 04/11/2022 3:00 PM PLATEMAN Beatriz De Souza RN Active * Do [...] on filedocumented in this encounter Care Teams Independent Living Specialist Relationship Specialty Start Date End Date Almas Griffith MD [facility] [place] [phone] PCP - General FAMILY PRACTICE 01/09/24 documented as of this encounter
--- OUTSIDE RECORDS SUMMARY | 2024-07-18 13:31 | XMS_ITS | Clinical Summary ---
Author Organization [facility] [address] Address [address] [place] [phone] Care Team Providers Care Filling Hand Name Role Phone Unavailable Primary Care Provider [...] INFLUENZA VACCINE (#1) 2023 Insurance [employer] PPO [employer] HMO OPEN ACCESS
--- OUTSIDE RECORDS SUMMARY | 2024-07-18 13:31 | XMS_ITS | Clinical Summary ---
Author Organization [facility] Address [address] [place] [address] Care Team Providers Care Client Technical Support Associate Name Role Phone Almas Griffith MD Primary Care Provider [phone] Allergies Active Allergy Reactions Criticality Noted Date [...] complication, without long-term current use of insulin ([facility]/HCC [facility]) ADMINISTER 2.5 MG UNDER THE SKIN EVERY [...] complication, without long-term current use of insulin ([facility]) 01/09/2024 Generalized anxiety disorder with panic attacks 01/09/2024 Primary insomnia 01/09/2024 SBO (small bowel obstruction) ([facility]) 04/10/2022 COVID-19 08/14/2019 Adhesive capsulitis of right shoulder 05/01/2019 Adiposity 08/09/2013 Overview (05/01/2019): OBESITY NOS Encounters Date Type Department Care Team Description 07/18/[address] [facility] Family Medicine [address] [address] Almas Griffith MD Blood Pressure [...] Sex Assigned at Female 04/08/2024 1:14 PM RUBBER MOLDER Legal Sex Female 9:15 AM RUBBER MOLDER Gender Identity Not on file Sexual Orientation Not on file Last Filed Vital Signs Vital Sign Reading Time Taken Comments Blood Pressure 160/96 04/08/2024 3:41 PM RUBBER MOLDER Pulse 78 04/08/2024 1:47 PM RUBBER MOLDER Temperature 36.6 C (97.9 F) 04/08/2024 1:47 PM RUBBER MOLDER Respiratory Rate 18 04/08/2024 1:47 PM RUBBER MOLDER Oxygen Saturation 98% 04/08/2024 1:47 PM RUBBER MOLDER Inhaled Oxygen Concentration - - Weight 63.7 kg (140 lb 6.4 oz) 04/08/2024 1:47 P M RUBBER MOLDER Height 149.9 cm (4' 11 ) 04/08/2024 1:47 PM RUBBER MOLDER Body Mass Index 28.36 04/08/2024 1:47 PM RUBBER MOLDER Plan of Treatment Health Maintenance Due Date [...] exists Hepatitis C Completed 02/22/2024 PHQ-2 (Physician [place]) Completed 04/08/2024 Meningococcal B Vaccine Aged Out [...] TO HCV RNA Routine 02/22/2024 1:24 PM RUBBER MOLDER Encounter for hepatitis C screening test for low risk patient LIPID PANEL Routine 02/22/2024 1:24 PM RUBBER MOLDER Type 2 diabetes mellitus without complication, without long-term current use of insulin (CMS/HCC HHS/HCC) from Last 3 Months or Most Recently Relevant to Health Maintenance Results * A1C (BACK OFFICE) (04/08/2024) HGB A1C 5.3 % [facility] 04/08/2024 Almas Griffith MD LABORATORY Final Result [facility] [address] [place] [address], * HEPATITIS C ANTIBODY W/RFX TO HCV RNA ([facility] ONLY) (02/22/2024 1:24 PM RUBBER MOLDER) HEPATITIS C AB NON-REACT JOSE MIGUEL NON-REACT JOSE MIGUEL [facility] Comment: HCV antibody was non-reactive. There is no laboratory evidence of HCV infection. In most cases, no further action is required. However, if recent HCV exposure is suspected, a test for HCV RNA (test code 68631) is suggested. For additional information please refer to http://education.[employer].com/faq/BFK68m3 (This link is being provided for informational/ educational purposes only.) 02/22/2024 1:24 PM RUBBER MOLDER 02/22/2024 1:25 PM RUBBER MOLDER Narrative [facility] - 02/23/2024 5:20 AM RUBBER MOLDER FASTING:YES FASTING: YES Resulting Agency Comment Performing Organization Information: Site ID: [id number] Name: [facility] Address: [address] [address] Director: Chapincito Knox MD Almas Griffith MD LABORATORY Final Result [facility] [address] [address], * (ABNORMAL) LIPID PANEL (02/22/2024 1:24 PM RUBBER MOLDER) Pathologist [facility] CHOLESTEROL 208(H) <200 mg/dL [place] HDL 75 > OR = 50 mg/dL [place] TRIGLYCERIDES 66 <150 mg/dL [place] LDL (CALCULATED) 117(H) mg/dL (calc) [place] Comment: Reference range: <100 Desirable range <100 mg/dL for primary prevention; <70 mg/dL for patients with CHD or diabetic patients with > or = 2 CHD risk factors. LDL-C is now calculated using the Jim-Ruchi calculation, which is a validated novel method providing better accuracy than the Friedewald equation in the estimation of LDL-C. Jim SS et al. FARHANA. 2013;310(19): 6540-4111 (http://education.Myagi/faq/IJS127) CHOL/HDL RATIO 2.8 <5.0 (calc) [place] NON HDL CHOLESTEROL 133(H) <130 mg/dL (calc) [place] Comment: For patients with diabetes plus 1 major ASCVD risk factor, treating to a non-HDL-C goal of <100 mg/dL (LDL-C of <70 mg/dL) is considered a therapeutic option. 02/22/2024 1:24 PM RUBBER MOLDER 02/22/2024 1:25 PM RUBBER MOLDER Narrative [facility] - 02/23/2024 5:20 AM RUBBER MOLDER FASTING:YES FASTING: YES Resulting Agency Comment Performing Organization Information: Site ID: [id number] [facility] Address: [address] [place] [address] Director: Chapincito Knox Almas Griffith MD LABORATORY Final Result [facility] [place] [address] [place] [address], from Last 3 Months or Most Recently Relevant to Health Maintenance Insurance FileThis OPEN ACCESS [facility] Care Teams Client Technical Support Associate Relationship Specialty Start Date End Date Almas Griffith MD [facility] [place] [address] PCP - General FAMILY PRACTICE 01/09/24
--- OUTSIDE RECORDS SUMMARY | 2024-07-18 13:32 | XMS_ITS | Referral Summary ---
Author Organization [facility] Address [address] [place] [address] Care Team Providers Care Corporate Law Specialist Name Role Phone Martin White MD Unavailable [phone] Almas Griffith MD Primary Care Provider [phone] Allergies Active Allergy Reactions Criticality Noted Date [...] on file Legal Sex Female 7:17 PM DOBIE MAN Gender Identity Not on file Sexual Orientation [...] cm (4' 11 ) 03/10/2013 9:37 AM DOBIE MAN Body Mass Index - - Plan of [...] Romina Mcgovern M.D. LD: KAYCEE Report ID: [id number] Reading Location: [facility] Kenny Sinha MD IMG MAMMO PROCEDURES Final Re sult from Last 3 Months or Most Recently Relevant to Health Maintenance Insurance [employer] OPEN ACCESS [facility] [id number] Care Teams Corporate Law Specialist Relationship Specialty Start Date End Date Almas Griffith MD PCP - General Family Medicine 01/21/24 Martin White MD 08/14/19
[2024-07-18 13:59] LABS: Basophils Percent Auto 0.5 % (0.2-1.2); Eosinophils Absolute Auto 0.1 K/mm3 (0-0.3); Eosinophils Percent Auto 1.1 % (0-4.4); Hemoglobin 13.3 g/dL (12.0-15.0); Immature Granulocyte Absolute 0.01 K/mm3 (0.00-0.031); Immature Granulocyte Percent A 0.2 % (0-0.5); Lymphocytes Absolute Auto 1.66 K/mm3 (0.9-3.2); Lymphocytes Percent Auto 37.6 % (18.3-44.2); Mean Corpuscular HGB Conc 32.4 g/dl (32-36); Mean Corpuscular Hemoglobin 27.4 pg (26-34); Mean Corpuscular Volume 84.5 fl (80-100); Mean Platelet Volume 10.5 fl (7.4-10.4); Monocytes Absolute Auto 0.4 K/mm3 (0.1-0.6); Monocytes Percent Auto 8.1 % (2.6-8.5); Neutrophils Absolute Auto 2.3 K/mm3 (1.3-6.7); Neutrophils Percent Auto 52.5 % (45.5-73.1); Platelet Count Result 301 k/mm3 (150-375); Red Blood Count 4.85 M/mm3 (4.2-5.4); Red Cell Distribution Width 14.2 % (11.5-14.5); White Blood Count 4.4 K/mm3 (4.5-10.0)
[2024-07-18 14:21] LABS: Alanine Aminotransferase 26 U/L (6-35); Albumin Level 4.7 g/dL (3.5-5.1); Alkaline Phosphatase 92 U/L (38-126); Anion Gap 12 mmol/L (4-12); Aspartate Amino Transferase 33 U/L (14-36); Blood Urea Nitrogen 17 mg/dL (7-17); Calcium 9.1 mg/dL (8.4-10.2); Carbon Dioxide 19 mmol/L (22-30); Chloride 108 mmol/L (98-107); Estimated Glomerular Filt Rate > 60; Glucose 81 mg/dL (65-110); Potassium 4.4 mmol/L (3.4-5.0); Sodium 139 mmol/L (137-145)
[2024-07-18] MEDS: hydrALAZINE HCL 20 MG/ML VIAL 10 MG IV PUSH (14:58)
--- NOTE | 2024-07-18 15:37 | ED_ITS ---
HPI - General Adult General Chief complaint: Recheck/Abnormal Lab/Rx Stated complaint: htn Time Seen by Provider: 07/18/24 13:21 History of Present Illness HPI narrative: 53-year-old female presents to the emergency department for evaluation for elevated blood pressures. Patient does have a prior history of hypertension but states she was asked to stop her medications by her primary care physician. Patient has since switched primary care physicians and during her last visit she was told that she may need to be restarted on blood pressure medications. Patient did get a blood pressure cuff and noticed that she had a systolic blood pressure greater than 200 this morning. While in the emergency department patient's blood pressures routinely running 160 systolic Related Data Allergies Allergy/AdvReac Type Severity Reaction Status Date / Time lisinopril Allergy Severe Swelling Verified 06/06/23 22:42 iodine Allergy Hives Verified 06/06/23 22:42 Review of Systems 2 Review of Systems: All systems reviewed & are unremarkable except as noted in HPI and below PMFSH Past Medical History Medical History Hypertension Surgical History Surgical History Gastric bypass status for obesity Gastric Sleeve H/O: hysterectomy History of cholecystectomy Family History Family History Father No problems noted. Mother No problems noted. Daughter No problems noted. Social History Social History Social History: Patient is single. She does have to adult daughters. Never smoker. Occasional alcohol use. She is a full code. 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 Smoking status: Never smoker Alcohol intake: current Drinks per week: 3 Alcohol use details: Occasional alcohol Substance use: never Living arrangements: with family Occupation/Education: occupation Additional occupation/education comments: Dispatcher for [employer] Gender identity (if verbalized by the patient): Male Spiritual care concerns: No Agree to blood products: Yes Exam 2 Narrative: APPEARANCE: Well appearing, no pain, no distress, well-nourished. HEAD: normocephalic, atraumatic. EYES: PERRLA/EOMI, conjunctivae clear. NOSE: Normal no drainage EARS:TMS clear with good light reflex. THROAT: Pharynx clear, no exudate. NECK: Supple. No adenopathy, no masses. RESPIRATORY: Airway patent, respirations nonlabored. Clear to auscultation bilaterally, no rales, rhonchi, wheezing. CARDIOVASCULAR: Regular rate and rhythm without murmurs rubs or gallops. ABDOMINAL: Soft, nontender, nondistended, normal bowel sounds MUSCULOSKELETAL: Moves all extremities. Strength/ROM intact, No edema, No calf tenderness. NEURO: Alert. Cranial nerves II through XII intact. Good gait. Good coordination SKIN: Warm, dry. Normal Color Course Vital Signs Vital signs: Vital Signs Temperature 97.8 F 07/18/24 12:27 Pulse Rate 108 H 07/18/24 12:27 Respiratory Rate 16 07/18/24 12:27 Blood Pressure 141/101 H 07/18/24 12:27 Pulse Oximetry 96 07/18/24 12:27 Temperature 97.8 F 07/18/24 12:27 Pulse Rate 91 07/18/24 16:02 Respiratory Rate 20 07/18/24 16:02 Blood Pressure 131/86 07/18/24 16:02 Pulse Oximetry 100 07/18/24 16:02 Medical Decision Making MDM Narrative Medical decision making narrative: 53-year-old female presents emergency department for evaluation for elevated blood pressure. Patient was restarted on her hydrochlorothiazide 25 mg p.o.. Patient did fill her own prescription that she still has the pharmacy. Patient is afebrile no leukocytosis hemoglobin of 13.3. Patient has no acute abnormalities on her CMP. Patient did feel improved with treatment. Patient was encouraged close follow-up with primary care physician. Patient was educated on reasons to return to the emergency department. Patient states she has been having increased salty diet over the last few days. Patient was advised to follow a low salt diet in addition to continuing her hydrochlorothiazide. Differential Diagnosis Differential Diagnosis: Hypertension, end-organ injury Vital Signs Vital Signs: Vital Signs Temperature 97.8 F 07/18/24 12:27 Pulse Rate 108 H 07/18/24 12:27 Respiratory Rate 16 07/18/24 12:27 Blood Pressure 141/101 H 07/18/24 12:27 Pulse Oximetry 96 07/18/24 12:27 Temperature 97.8 F 07/18/24 12:27 Pulse Rate 91 04/25/25 16:02 Respiratory Rate 20 07/18/24 16:02 Blood Pressure 131/86 07/18/24 16:02 Pulse Oximetry 100 07/18/24 16:02 Lab Data Lab results reviewed: Yes I reviewed the patient's lab results. 07/18/24 13:52 07/18/24 13:52 Labs: Lab Results 07/18/24 Range/Units 13:52 WBC 4.4 L (4.5-10.0) K/mm3 RBC 4.85 (4.2-5.4) M/mm3 Hgb 13.3 (12.0-15.0) g/dL Hct 41.0 (37.0-47.0) % MCV 84.5 (80-100) fl MCH 27.4 (26-34) pg MCHC 32.4 (32-36) g/dl RDW 14.2 (11.5-14.5) % Plt Count 301 (150-375) k/mm3 MPV 10.5 H (7.4-10.4) fl Immature Gran % (Auto) 0.2 (0-0.5) % Neut % (Auto) 52.5 (45.5-73.1) % Lymph % (Auto) 37.6 (18.3-44.2) % Metcalfe % (Auto) 8.1 (2.6-8.5) % Eos % (Auto) 1.1 (0-4.4) % Baso % (Auto) 0.5 (0.2-1.2) % Lymph # (Auto) 1.66 (0.9-3.2) K/mm3 Metcalfe # (Auto) 0.4 (0.1-0.6) K/mm3 Eos # (Auto) 0.1 (0-0.3) K/mm3 Baso # (Auto) 0.0 (0.0-0.1) K/mm3 Abs Immat Gran (auto) 0.01 (0.00-0.031) K/mm3 Absolute Neuts (auto) 2.3 (1.3-6.7) K/mm3 Absolute Nucleated RBC 0.000 (0.0-0.012) K/mm3 Nucleated RBC % 0.0 (0.0-0.2) % Sodium 139 (137-145) mmol/L Potassium 4.4 (3.4-5.0) mmol/L Chloride 108 H (98-107) mmol/L Carbon Dioxide 19 L (22-30) mmol/L Anion Gap 12 (4-12) mmol/L BUN 17 (7-17) mg/dL Creatinine 0.84 (0.7-1.0) mg/dL Estim Creat Clear Calc Not Reportable Estimated GFR > 60 (59 - ) Glucose 81 (65-110) mg/dL Calcium 9.1 (8.4-10.2) mg/dL Total Bilirubin 2.0 H (0.2-1.3) mg/dL AST 33 (14-36) U/L ALT 26 (6-35) U/L Alkaline Phosphatase 92 (38-126) U/L Total Protein 8.0 (6.3-8.2) g/dL Albumin 4.7 (3.5-5.1) g/dL Discharge Plan Discharge Clinical Impression: Hypertension Patient Disposition: Home Condition: Stable Instructions: Antibiotic Form, Hypertension (ED) Additional Instructions: Follow low-sodium diet. Drink plenty of fluids. Restart your hydrochlorothiazide. Have close follow-up with your primary care physician. If you have any worsening symptoms please call or return to the emergency department. Patient Language: Albanian Prescriptions: No Action phenazopyridine 200 mg tablet 200 mg PO TID Qty: 6 0RF cephalexin 500 mg capsule 500 mg PO Q12H Qty: 10 0RF albuterol sulfate [Proventil HFA] 90 mcg/actuation Hfa Aerosol Inhaler 2 puff inhalation Q6H PRN (Reason: shortness of breath or wheezing) Qty: 6.7 0RF Follow-up/Referrals: UNKNOWN,DOCTOR [Primary Care Provider] - Stand Alone Forms: Work/School Release IP
[2024-07-18] MEDS: KETOROLAC 30 MG/ML VIAL (*BKC) IV PUSH (16:09)
[2024-07-18] MEDS: hydroCHLOROthiazide 25 MG TABLET PO (16:09)
== END 2024-07-18 16:16 | disposition home or self-care (01) ==
PROVIDERS: Emergency Provider Emergency Medicine
DX: I10 Essential (primary) hypertension (principal)
CPT/HCPCS: 36415; 80053; 85025; 93005; 96374; 96375; 99284; A9270; J0360; J1885

== ENCOUNTER 2024-08-03 05:53 | Emergency (ER) | payer OTHER, SELFPAY ==
[2024-08-03] VITALS (16 sets, daily range): BP systolic 125–148; BP diastolic 84–93; PULSE 73–74; RESP 17–20; TEMP 36.7; O2SAT 97–100
--- NOTE | ~2024-08-03 | CT_ITS ---
EXAMINATION: CT brain wo con DATE: 08/03/2024 06:21 INDICATION: Left-sided headache. Blurred vision. TECHNIQUE: Computed tomography (CT) of the head was performed without intravenous contrast. The dose- length product was 908.00 mGy-cm. Automated exposure control and iterative reconstruction technique w ere employed. COMPARISON: CT dated 01/14/2013 FINDINGS: Normal carpenter-white differentiation. No acute hemorrhage, infarction, mass or mass effect. No ventriculomegaly or midline shift. Basilar cisterns are patent. Mild mucosal thickening of the left maxillary and ethmoid sinuses. Mastoids are pneumatized. No depressed skull fractures. IMPRESSION: 1. No acute intracranial abnormality. 2: Mild sinus disease. Reviewed, dictated and finalized at location A.
--- OUTSIDE RECORDS SUMMARY | 2024-08-03 05:55 | XMS_ITS | Clinical Summary ---
Author Organization [facility] Address [address] [place] [address] Care Team Providers Care Spinning Supervisor Name Role Phone Almas Griffith MD Primary Care Provider [phone] Allergies Active Allergy Reactions Criticality Noted Date Comments Iodinated Contrast Media Hives 04/10/2022 Patient states this is only when she was . Medications BANOPHEN 25 MG capsule Take 1 capsule (25 mg total) by mouth every 6 (six) hours as needed for Itching or Allergies. 09/05/19 20 Active albuterol sulfate HFA 108 (90 Base) MCG/ACT inhaler Inhale 2 puffs into the lungs every 6 (six) hours as needed for Shortness of breath. 07/31/19 20 Active famotidine (PEPCID) 20 MG tablet every 12 (twelve) hours. Active vitamin B-12 (CYANOCOBALAMIN) (CYANOCOBALAMIN) 1000 mcg tablet Take 1 tablet (1,000 mcg total) by mouth daily. 09/19/19 24 Active D-5000 125 MCG (5000 UT) Tab Take 1 tablet (125 mcg total) by mouth once a week. 09/21/19 24 Active atorvastatin (LIPITOR) 20 MG tabletIndications :Mixed hyperlipidemia TAKE 1 TABLET(20 MG) BY MOUTH EVERY NIGHT AT BEDTIME 90 tablet 3 04/07/19 25 Active traZODone (DESYREL) 50 MG tabletIndications :Primary insomnia Take 1 tablet (50 mg total) by mouth nightly at bedtime. 30 tablet 2 05/14/19 25 Active MOUNJARO 2.5 MG/0.5ML injectionIndicati ons:Type 2 diabetes mellitus without complication, without long-term current use of insulin ([facility]) ADMINISTER 2.5 MG UNDER THE SKIN EVERY 7 DAYS FOR DIABETES 2 mL 2 07/25/19 25 Active FLUoxetine (PROZAC) 20 MG capsuleIndication s:Generalized anxiety disorder with panic attacks TAKE 1 CAPSULE(20 MG) BY MOUTH EVERY MORNING 30 capsule 2 08/02/19 Active MOUNJARO 2.5 MG/0.5ML injectionIndicati ons:Type 2 diabetes mellitus without complication, without long-term current use of insulin ([facility]) ADMINISTER 2.5 MG UNDER THE SKIN EVERY 7 DAYS FOR DIABETES 2 mL 2 04/16/19 25 2024 Discontinued FLUoxetine (PROZAC) 20 MG capsuleIndication s:Generalized anxiety disorder with panic attacks TAKE 1 CAPSULE(20 MG) BY MOUTH EVERY MORNING 30 capsule 2 05/12/19 25 2024 Discontinued Active Problems Problem Noted Date Diagnosed Date Elevated blood pressure read ing in office without diagnosis of hypertension 04/08/2024 Tooth infection 04/08/2024 Mixed hyperlipidemia 02/25/2024 Type 2 diabetes mellitus wit hout complication, without long-term current use of insulin ([facility]) 01/09/2024 Generalized anxiety disorder with panic attacks 01/09/2024 Primary insomnia 01/09/2024 SBO (small bowel obstruction) ([facility]) 04/10/2022 COVID-19 08/14/2019 Adhesive capsulitis of right shoulder 05/01/2019 Adiposity 08/09/2013 Overview (05/01/2019): OBESITY NOS Encounters Date Type Department Care Team Description 07/18/2024 Telephone [facility] Family Medicine [address] [place] [place] [address] Almas Griffith MD Blood Pressure from [...] Sex Assigned at Female 04/08/2024 1:14 PM HYDROELECTRIC PLANT STRUCTURAL ENGINEER Legal Sex Female 9:15 AM HYDROELECTRIC PLANT STRUCTURAL ENGINEER Gender Identity Not on file Sexual Orientation Not on file Last Filed Vital Signs Vital Sign Reading Time Taken Comments Blood Pressure 160/96 04/08/2024 3:41 PM HYDROELECTRIC PLANT STRUCTURAL ENGINEER Pulse 78 04/08/2024 1:47 PM HYDROELECTRIC PLANT STRUCTURAL ENGINEER Temperature 36.6 C (97.9 F) 04/08/2024 1:47 PM HYDROELECTRIC PLANT STRUCTURAL ENGINEER Respiratory Rate 18 04/08/2024 1:47 PM HYDROELECTRIC PLANT STRUCTURAL ENGINEER Oxygen Saturation 98% 04/08/2024 1:47 PM HYDROELECTRIC PLANT STRUCTURAL ENGINEER Inhaled Oxygen Concentration - - Weight 63.7 kg (140 lb 6.4 oz) 04/08/2024 1:47 P M HYDROELECTRIC PLANT STRUCTURAL ENGINEER Height 149.9 cm (4' 11 ) 04/08/2024 1:47 PM HYDROELECTRIC PLANT STRUCTURAL ENGINEER Body Mass Index 28.36 04/08/2024 1:47 PM HYDROELECTRIC PLANT STRUCTURAL ENGINEER Plan of Treatment Health Maintenance Due Date [...] exists Hepatitis C Completed 02/22/2024 PHQ-2 (Physician [place]) Completed 04/08/2024 Meningococcal B Vaccine Aged Out [...] TO HCV RNA Routine 02/22/2024 1:24 PM HYDROELECTRIC PLANT STRUCTURAL ENGINEER Encounter for hepatitis C screening test for low risk patient LIPID PANEL Routine 02/22/2024 1:24 PM HYDROELECTRIC PLANT STRUCTURAL ENGINEER Type 2 diabetes mellitus without complication, without long-term current use of insulin ([facility]/HCC HHS/HCC) from Last 3 Months or Most Recently Relevant to Health Maintenance Results * A1C (BACK OFFICE) (04/08/2024) HGB A1C 5.3 % FABIO SALTER 04/08/2024 Almas Griffith MD LABORATORY Final Result DARIO FABIO RICHARD [address] [place] [address], * HEPATITIS C ANTIBODY W/RFX TO HCV RNA ([facility] ONLY) (02/22/2024 1:24 PM HYDROELECTRIC PLANT STRUCTURAL ENGINEER) HEPATITIS C AB NON-REACT JOSE MIGUEL NON-REACT JOSE MIGUEL [facility] Comment: HCV antibody was non-reactive. There is no laboratory evidence of HCV infection. In most cases, no further action is required. However, if recent HCV exposure is suspected, a test for HCV RNA (test code 36485) is suggested. For additional information please refer to http://Oodrive.YumZing/faq/NCM30g0 (This link is being provided for informational/ educational purposes only.) 02/22/2024 1:24 PM HYDROELECTRIC PLANT STRUCTURAL ENGINEER 02/22/2024 1:25 PM HYDROELECTRIC PLANT STRUCTURAL ENGINEER Narrative [facility] - 02/23/2024 5:20 AM HYDROELECTRIC PLANT STRUCTURAL ENGINEER FASTING:YES FASTING: YES Resulting Agency Comment Performing Organization Information: Site ID: [place] Name: [facility] Address: [address] [place] [address] [place] [address] Director: Chapincito Knox MD us Almas Griffith MD LABORATORY Final Result [facility] [address] [facility] [place] [address], * (ABNORMAL) LIPID PANEL (02/22/2024 1:24 PM HYDROELECTRIC PLANT STRUCTURAL ENGINEER) Pathologist [facility] CHOLESTEROL 208(H) <200 mg/dL [place] HDL 75 > OR = 50 mg/dL [place] TRIGLYCERIDES 66 <150 mg/dL [place] LDL (CALCULATED) 117(H) mg/dL (calc) [place] Comment: Reference range: <100 Desirable range <100 mg/dL for primary prevention; <70 mg/dL for patients with CHD or diabetic patients with > or = 2 CHD risk factors. LDL-C is now calculated using the Kirk calculation, which is a validated novel method providing better accuracy than the Friedewald equation in the estimation of LDL-C. Jim MOTA et al. FARHANA. 2013;310(19): 3065-0233 (http://education.Torax Medical/faq/MVW917) CHOL/HDL RATIO 2.8 <5.0 (calc) [place] NON HDL CHOLESTEROL 133(H) <130 mg/dL (calc) [place] Comment: For patients with diabetes plus 1 major ASCVD risk factor, treating to a non-HDL-C goal of <100 mg/dL (LDL-C of <70 mg/dL) is considered a therapeutic option. 02/22/2024 1:24 PM HYDROELECTRIC PLANT STRUCTURAL ENGINEER 02/22/2024 1:25 PM HYDROELECTRIC PLANT STRUCTURAL ENGINEER Narrative [facility] - 02/23/2024 5:20 AM HYDROELECTRIC PLANT STRUCTURAL ENGINEER FASTING:YES FASTING: YES Resulting Agency Comment Performing Organization Information: Site ID: [place] Name: [facility] Address: [address] [place] [address] Director: Chapincito Knox us Almas Griffith MD LABORATORY Final Result [facility] [place] [id number] [place] [phone], from Last 3 Months or Most Recently Relevant to Health Maintenance Insurance [email or web address] OPEN ACCESS [facility] Care Teams Spinning Supervisor Relationship Specialty Start Date End Date Almas Griffith MD [address] [place] [phone] PCP - General FAMILY PRACTICE 01/09/24
--- OUTSIDE RECORDS SUMMARY | 2024-08-03 05:56 | XMS_ITS | Clinical Summary ---
Author Organization [facility] Address [address] [place] [address] Care Team Providers Care Neonatal Doctor Name Role Phone Martin White MD Unavailable [phone] Almas Griffith MD Primary Care Provider [phone] Allergies Active Allergy Reactions Criticality Noted Date [...] 08/14/2019 Obesity 08/09/2013 Overview (06/30/2016): OBESITY NOS Encounters Date Type Department Care Team Description 07/22/2024 9:00 AM CDT - 07/22/2024 11:59 PM CDT Hospital Encounter [facility] 1 Breast [facility] [address] [place] [address] Follow-up examination of abnormal mammogram Discharge Disposition: Discharge to home or self care from Last 3 Months Immunizations Immunization Administration Dates Next Due Influenza, [...] on file Legal Sex Female 7:17 PM PREMIX OPERATOR CONCENTRATE Gender Identity Not on file Sexual Orientation [...] cm (4' 11 ) 03/10/2013 9:37 AM PREMIX OPERATOR CONCENTRATE Body Mass Index - - Plan of [...] Procedure Name Priority Date/Time Associated Diagnosis Comments US BREAST RIGHT LIMITED Schedule Routine, Read Routine (OP Routine) 07/22/2024 9:11 AM CDT Follow-up examination of abnormal mammogram DIAGNOSTIC MAMMOGRAM BILATERAL W ANTONY Schedule Routine, Read Routine (OP Routine) 01/21/2024 1:52 PM CDT Follow-up examination of abnormal mammogram from Last 3 Months or Most Recently Relevant to Health Maintenance Results * US Breast Right Limited (07/22/2024 9:11 AM CDT) Anatomical Region Laterality Modality Breast Right Ultrasound 07/22/2024 9:17 AM CDT Impressions 07/22/2024 9:17 AM CDT No imaging findings to suggest malignancy are seen. The patient may return to screening mammography as per ACR guidelines. She is due for bilateral screening mammography in December. OVERALL FINAL ASSESSMENT: [id number] Electronically signed by: Romina Mcgovern M.D. Narrative 07/22/2024 9:17 AM CDT PROCEDURE: LIMITED RIGHT BREAST ULTRASOUND HISTORY: Follow-up COMPARISON(S): Multiple studies dating back to August 07, 2022 TECHNIQUE: Martin scale and color Doppler FINDINGS: Sonography through the 9:00 position again demonstrates a circumscribed, ovoid, heterogeneous, 7 mm structure which is partially cystic and partially solid. This continues to be stable and is considered benign. Kenny Sinha MD IM MAMMO PROCEDURES Final Re sult * Diagnostic Mammogram Bilateral W Antony (01/21/2024 [...] Romina Mcgovern M.D. LD: KAYCEE Report ID: [id number] Reading Location: MAMMM[facility] eKnny Sinha MD IMG MAMMO PROCEDURES Final Re sult from Last 3 Months or Most Recently Relevant to Health Maintenance Insurance [employer] OPEN ACCESS [facility] [id number] Care Teams Neonatal Doctor Relationship Specialty Start Date End Date Almas Griffith MD PCP - General Family Medicine 01/21/24 Martin White MD 08/14/19
--- OUTSIDE RECORDS SUMMARY | 2024-08-03 05:56 | XMS_ITS | Encounter Summary ---
Author Organization [facility] Address [facility] [place] [address] Care Team Providers Care Fishing Floats Assembler Name Role Phone Almas Griffith MD Primary Care Provider [phone] Encounter Details Date Type Department Care Team (Latest Contact Info) Description 02/15/2024 Jetlore Message Enc [facility] Multispecialty Care - [address], [address] [place] [address] [employer], [facility] Provider April 07, 2024 Social History [...] Sex Assigned at Female 04/08/2024 1:14 PM HOT DIE PRESS FEEDER Legal Sex Female 9:15 AM HOT DIE PRESS FEEDER Gender Identity Not on file Sexual Orientation Not on file documented as of this encounter Functional Status * RETIRED Are you deaf or do you have serious difficulty hearing Answer Date of Assessment Author Status No 04/11/2022 3:00 PM HOT DIE PRESS FEEDER Activ e * RETIRED Are you blind or do you have serious difficulty seeing, even when wearing glasses? Answer Date of Assessment Author Status No 04/11/2022 3:00 PM HOT DIE PRESS FEEDER Activ e * Do you have serious difficulty walking or climbing stairs? Answer Date of Assessment Author Status No 04/11/2022 3:00 PM HOT DIE PRESS FEEDER Beatriz D eSouza RN Active * Do you have difficulty [...] on filedocumented in this encounter Care Teams Fishing Floats Assembler Relationship Specialty Start Date End Date Almas Griffith MD [facility] [place] [phone] PCP - General FAMILY PRACTICE 01/09/24 documented as of this encounter
--- OUTSIDE RECORDS SUMMARY | 2024-08-03 05:56 | XMS_ITS | CONTINUITY OF CARE DOCUMENT ---
Author Name ramon, ramon Address Unknown Organization [facility] Address [address] [facility] [address] [place] [address] Phone [phone] Care Team Providers Care Garden Equipment Mechanic Name Role Phone Dra Steven MD Unavailable [phone] Dar Steven MD Unavailable [phone] PROBLEMS Condition Status Date Provider Notes HTN controlled completed - Dar johnson MD GERD active FRANCESCO HILL MD Obesity active Dar Steven MD HTN essential, hx of active Dar Steven MD Anxiety active Dar Steven MD ENCOUNTERS Date Type Provider Location Encounter Diag nosis - In-person encounter Office Visit Dar Steven MD [facility] HTN controlledObesityHTN essential, hx ofAnxiety - In-person encounter Office Visit FRANCESCO HILL MD [facility] - In-person encounter Office Visit FRANCESCO HILL MD [facility] GERD - In-person encounter Office Visit Hansa Mason [facility] - In-person encounter Office Visit Hansa [facility] - In-person encounter Office Visit Hansa Mason [facility] - In-person encounter Office Visit Hansa Mason [facility] VITAL SIGNS Date Observation Value Provider [...] Not Estab. platelet count 305 X10E3/UL LinkLogic [phone]/04/0 6 red blood cell distribution width 14.6 [...] 3.5-5.2 6 sodium, serum 144 mmol/L LinkLogic [phone]/04/0 6 urea nitrogen/creatinine ratio, serum 18 LinkLogic [...] Payer name Policy type / Coverage type [place] red republican ID HEALTHLINK OPEN ACCESS Other [id number] ADVANCE DIRECTIVES Name Date DISCUSSED - [...]
--- OUTSIDE RECORDS SUMMARY | 2024-08-03 05:56 | XMS_ITS | Clinical Summary ---
Author Organization [facility] [address] Office [address] Address [address] [place] [address] Care Team Providers Care Warehouse Checker Name Role Phone Unavailable Primary Care Provider [...] INFLUENZA VACCINE (#1) 2023 Insurance HE[employer] PPO MarginLeftLINK HMO OPEN ACCESS
--- OUTSIDE RECORDS SUMMARY | 2024-08-03 05:56 | XMS_ITS | Referral Summary ---
Author Organization [facility] Address [address] [place] [address] Care Team Providers Care Rod Puller Name Role Phone Martin White MD Unavailable [phone] Almas Griffith MD Primary Care Provider [phone] Encounters Date Type Department Care Team Description 07/22/2024 9:00 AM CDT - 07/22/2024 11:59 PM CDT Hospital Encounter [facility] Office Bldg 1 Breast [facility] [address] [facility] [address] [place] [address] Follow-up examination of abnormal mammogram Discharge Disposition: Discharge to home or self care from Last 3 Months Allergies Active Allergy Reactions Criticality Noted Date [...] on file Legal Sex Female 7:17 PM REGULATOR MECHANIC Gender Identity Not on file Sexual Orientation [...] cm (4' 11 ) 03/10/2013 9:37 AM REGULATOR MECHANIC Body Mass Index - - Plan of Treatment Not on file Procedures Procedure Name Priority Date/Time Associated Diagnosis Comments US BREAST RIGHT LIMITED Schedule Routine, Read Routine (OP Routine) 07/22/2024 9:11 AM CDT Follow-up examination of abnormal mammogram DIAGNOSTIC MAMMOGRAM BILATERAL W ERIC Schedule Routine, Read Routine (OP Routine) 01/21/2024 [...] screening mammography in December. OVERALL FINAL ASSESSMENT: [id number] Electronically signed by: Romina Mcgovern M.D. Narrative [...] to be stable and is considered benign. us Kenny Sinha MD IMG MAMMO PROCEDURES Final Re sult * Diagnostic Mammogram Bilateral W Eric (01/21/2024 1:52 PM CDT) Anatomical Region Laterality Modality Breast Bilateral Mammography 01/21/2024 2:34 PM CDT Narrative 01/21/2024 4:30 PM CDT EXAM DESCRIPTION: US BREAST RIGHT LIMITED; DIAGNOSTIC MAMMOGRAM BILATERAL W ERIC REASON FOR STUDY: Follow-up COMPARISON: March 28, [...] Romina Mcgovern M.D. LD: KAYCEE Report ID: [id number] [facility] Kenny Sinha MD IMG MAMMO PROCEDURES Final Re sult from Last 3 Months or Most Recently Relevant to Health Maintenance Insurance [employer] OPEN ACCESS [facility] [id number] Care Teams Rod Puller Relationship Specialty Start Date End Date Almas Griffith MD PCP - General Family Medicine 01/21/24 Martin White MD 08/14/19
--- OUTSIDE RECORDS SUMMARY | 2024-08-03 05:56 | XMS_ITS ---
Author Organization [facility] [place] ([address]) Address [address] [address] Care Team Providers Care Dielectric Machine Operator Name Role Phone ChristopherMartin Primary Care Provider Unavailab le Trinidad Crabtree Unavailable [phone] ZZ-Migration, Provider Unavailable Unavailab le REASON FOR VISIT [facility] Conversion Encounter Medications Medication SIG (Take, Route, Fr equency, Duration) Notes Start Date End Date Status Famotidine 20 MG 1 tab(s) orally 2 times a day Active Cetirizine HCl 10 MG 1 tab(s) orally bid 0 Active Medrol 4 MG as directed Active Encounters Encounter Location Date Provider Diagnosis [address] [address] 09/08/2023 Provider ZZ-Migration Urticaria, unspecified L50.9 Assessments [...] Melinda PRATT RDOB: [birth year] (53 yo F)Acc No.[id number]:09/08/2023 Patient: Shawn Melinda HERNANDEZ Provider: Patel Graff :1970 A ge:53 Y S ex:Female Date:09/08/2023 Address:[address] [place], [place] [phone] Pcp:Martin White Subjective: * Chief Complaints: * 1 . Multum To Medispan Conversion Encounter. * Medical History: Objective: * Vitals: Assessment: * Assessment: 1. U rticaria, unspecified - L50.9 (Primary) Plan: * Treatment: * Billing Information: * Visit Code: * Procedure Codes: * Electronic signature of Prov karstenr ZZ-Migration on 08/03/2024 at 05:56 AM CDT Sign off status: Pending * Provider: Patel Graff Date: 09/08/2023 Generated for Rose fajardo/Maxi/[place]incoln on: 08/03/2024 05:56 AM CDT
--- OUTSIDE RECORDS SUMMARY | 2024-08-03 05:56 | XMS_ITS | Patient Health Record ---
Author Organization [facility] [place] ([address]) Address [address] [place] [address] Care Team Providers Care Recreation Manager Name Role Phone Martin White Primary Care Provider Unavailab le Trinidad Crabtree Unavailable [phone] CHERISE-Prerna, Provider Unavailable Unavailab le Reason For [...] Status Risk Notes Problem Shortness of breath (705433989) Shortness of breath (R06.02) Active confirmed Problem Urticaria (53422988) Urticaria, unspecified (L50.9) Active confirmed Encounters Encounter Location Date Provider Diagnosis [facility] [place] [address] 09/08/2023 Provider DivyaZ-Migration Urticaria, unspecified L50.9 Assessments Encounter Date Diagnosis (ICD Code) Assessment Notes Treatment Notes Treatment Clinical Notes Section Notes 09/08/2023 Urticaria, unspecified (ICD-10 - L50.9) Plan Of Treatment No Information Insurance Providers Payer Name Payer Address Payer Phone Subscriber Number Group Number Insured Name Patient Relationship to Insured Coverage Start Date Coverage End Date [employer] Open Access [address] [place] [address] [id number] Melinda Belle Self - patient is the insured Medical (General) History Medical History History ICD Code COVID-19 Surgical History Surgery Date(Month/Year) Hospitalization History Reason Date(Month/Year) COVID-19 06/2018
--- OUTSIDE RECORDS SUMMARY | 2024-08-03 07:18 | XMS_ITS | Clinical Summary ---
Author Organization [facility] [address] Address [address] [place] [address] Care Team Providers Care Assisted Living Executive Director Name Role Phone Unavailable Primary Care Provider [...] INFLUENZA VACCINE (#1) 2023 Insurance HE[employer] PPO [employer] HMO OPEN ACCESS
--- OUTSIDE RECORDS SUMMARY | 2024-08-03 07:18 | XMS_ITS | Encounter Summary ---
Author Organization [facility] Address [facility] [place] [address] Care Team Providers Care Crime Analyst Name Role Phone Almas Griffith MD Primary Care Provider [phone] Encounter Details Date Type Department Care Team (Latest Contact Info) Description 02/15/2024 Sutus Message Enc [facility] Medical Group Multispecialty Care - [address], [address] [place] [address] j-Grab, [facility] Provider April 07, 2024 Social History Tobacco [...] Sex Assigned at Female 04/08/2024 1:14 PM SHOE CLEANER Legal Sex Female 9:15 AM SHOE CLEANER Gender Identity Not on file Sexual Orientation Not on file documented as of this encounter Functional Status * RETIRED Are you deaf or do you have serious difficulty hearing Answer Date of Assessment Author Status No 04/11/2022 3:00 PM SHOE CLEANER Activ e * RETIRED Are you blind or do you have serious difficulty seeing, even when wearing glasses? Answer Date of Assessment Author Status No 04/11/2022 3:00 PM SHOE CLEANER Activ e * Do you have serious difficulty walking or climbing stairs? Answer Date of Assessment Author Status No 04/11/2022 3:00 PM SHOE CLEANER Beatriz De Souza RN Active * Do [...] on filedocumented in this encounter Care Teams Crime Analyst Relationship Specialty Start Date End Date Almas Griffith MD [facility] [place] [phone] PCP - General FAMILY PRACTICE 01/09/24 documented as of this encounter
--- OUTSIDE RECORDS SUMMARY | 2024-08-03 07:18 | XMS_ITS | Clinical Summary ---
Author Organization [facility] Address [address] [place] [address] Care Team Providers Care Motion Graphics Artist Name Role Phone Almas Griffith MD Primary Care Provider [phone] Allergies Active Allergy Reactions Criticality Noted Date [...] complication, without long-term current use of insulin ([facility]) ADMINISTER 2.5 MG UNDER THE SKIN EVERY 7 DAYS FOR DIABETES 2 mL 2 07/25/19 25 Active FLUoxetine (PROZAC) 20 MG capsuleIndication s:Generalized anxiety disorder with panic attacks TAKE 1 CAPSULE(20 MG) BY MOUTH EVERY MORNING 30 capsule 2 08/02/19 Active MOUNJARO 2.5 MG/0.5ML injectionIndicati ons:Type 2 diabetes mellitus without complication, without long-term current use of insulin ([facility]) ADMINISTER 2.5 MG UNDER THE SKIN EVERY [...] complication, without long-term current use of insulin ([facility]) 01/09/2024 Generalized anxiety disorder with panic attacks 01/09/2024 Primary insomnia 01/09/2024 SBO (small bowel obstruction) ([facility]) 04/10/2022 COVID-19 08/14/2019 Adhesive capsulitis of right shoulder 05/01/2019 Adiposity 08/09/2013 Overview (05/01/2019): OBESITY NOS Encounters Date Type Department Care Team Description 07/18/2024 Telephone [facility] [address] [place] [address] Almas Griffith MD Blood Pressure [...] Sex Assigned at Female 04/08/2024 1:14 PM LONG TERM Legal Sex Female 9:15 AM LONG TERM Gender Identity Not on file Sexual Orientation Not on file Last Filed Vital Signs Vital Sign Reading Time Taken Comments Blood Pressure 160/96 04/08/2024 3:41 PM LONG TERM Pulse 78 04/08/2024 1:47 PM LONG TERM Temperature 36.6 C (97.9 F) 04/08/2024 1:47 PM LONG TERM Respiratory Rate 18 04/08/2024 1:47 PM LONG TERM Oxygen Saturation 98% 04/08/2024 1:47 PM LONG TERM Inhaled Oxygen Concentration - - Weight 63.7 kg (140 lb 6.4 oz) 04/08/2024 1:47 P M LONG TERM Height 149.9 cm (4' 11 ) 04/08/2024 1:47 PM LONG TERM Body Mass Index 28.36 04/08/2024 1:47 PM LONG TERM Plan of Treatment Health Maintenance Due Date [...] exists Hepatitis C Completed 02/22/2024 PHQ-2 (Physician Tanana) Completed 04/08/2024 Meningococcal B Vaccine Aged Out [...] TO HCV RNA Routine 02/22/2024 1:24 PM LONG TERM Encounter for hepatitis C screening test for low risk patient LIPID PANEL Routine 02/22/2024 1:24 PM LONG TERM Type 2 diabetes mellitus without complication, without long-term current use of insulin ([facility]) from Last 3 Months or Most Recently Relevant to Health Maintenance Results * A1C (BACK OFFICE) (04/08/2024) HGB A1C 5.3 % FABIO SALTER 04/08/2024 Almas Griffith MD LABORATORY Final Result DARIO FABIO RICHARD [address] [place] [address], * HEPATITIS C ANTIBODY W/RFX TO HCV RNA ([facility] ONLY) (02/22/2024 1:24 PM LONG TERM) HEPATITIS C AB NON-REACT JOSE MIGUEL NON-REACT JOSE MIGUEL [facility] Comment: HCV antibody was non-reactive. There is no laboratory evidence of HCV infection. In most cases, no further action is required. However, if recent HCV exposure is suspected, a test for HCV RNA (test code 78275) is suggested. For additional information please refer to http://Rexter.ForeSee/faq/WES17y4 (This link is being provided for informational/ educational purposes only.) 02/22/2024 1:24 PM LONG TERM 02/22/2024 1:25 PM LONG TERM Narrative [facility] - 02/23/2024 5:20 AM LONG TERM FASTING:YES FASTING: YES Resulting Agency Comment Performing Organization Information: Site ID: [id number] Name: [facility] Address: [address] [place] [address] [place] [address] Director: Chapincito Knox MD us Almas Griffith MD LABORATORY Final Result [facility] [address] [facility] [place] [address], * (ABNORMAL) LIPID PANEL (02/22/2024 1:24 PM LONG TERM) Pathologist [facility] CHOLESTEROL 208(H) <200 mg/dL [place] HDL 75 > OR = 50 mg/dL [place] TRIGLYCERIDES 66 <150 mg/dL [place] LDL (CALCULATED) 117(H) mg/dL (calc) [place] Comment: Reference range: <100 Desirable range <100 mg/dL for primary prevention; <70 mg/dL for patients with CHD or diabetic patients with > or = 2 CHD risk factors. LDL-C is now calculated using the Kirk calculation, which is a validated novel method providing better accuracy than the Friedewald equation in the estimation of LDL-C. Jim MOTA et al. FARHANA. 2013;310(19): 4645-7611 (http://education.Zumigo/faq/CMH920) CHOL/HDL RATIO 2.8 <5.0 (calc) [place] NON HDL CHOLESTEROL 133(H) <130 mg/dL (calc) [place] Comment: For patients with diabetes plus 1 major ASCVD risk factor, treating to a non-HDL-C goal of <100 mg/dL (LDL-C of <70 mg/dL) is considered a therapeutic option. 02/22/2024 1:24 PM LONG TERM 02/22/2024 1:25 PM LONG TERM Narrative [facility] - 02/23/2024 5:20 AM LONG TERM FASTING:YES FASTING: YES Resulting Agency Comment Performing Organization Information: Site ID: [id number] Name: [facility] Address: [address] [place] [address] Director: Chapincito Knox us Almas Griffith MD LABORATORY Final Result [facility] [place] [place] [place] [id number] [place] [phone], from Last 3 Months or Most Recently Relevant to Health Maintenance Insurance [employer] OPEN ACCESS [facility] Care Teams Motion Graphics Artist Relationship Specialty Start Date End Date Almas Griffith MD [address] [place] [phone] PCP - General FAMILY PRACTICE 01/09/24
--- OUTSIDE RECORDS SUMMARY | 2024-08-03 07:19 | XMS_ITS | Clinical Summary ---
Author Organization [facility] [place] [facility] Address [address] [place] [address] Care Team Providers Care Jetting Machine Operator Name Role Phone Martin White MD Unavailable [phone] Almas Griffith MD Primary Care Provider [phone] Allergies Active Allergy Reactions Criticality Noted Date [...] - 07/22/2024 11:59 PM CDT Hospital Encounter [facility] 1 Breast [facility] [address] [place] [id number] Follow-up examination of abnormal mammogram Discharge Disposition: [...] on file Legal Sex Female 7:17 PM LANGUAGE TEACHER Gender Identity Not on file Sexual Orientation [...] cm (4' 11 ) 03/10/2013 9:37 AM LANGUAGE TEACHER Body Mass Index - - Plan of [...] screening mammography in December. OVERALL FINAL ASSESSMENT: [id number] Electronically signed by: Romina Mcgovern M.D. Narrative [...] Romina Mcgovern M.D. LD: KAYCEE Report ID: [id number] Reading Location: [facility] Kenny Sinha MD IMG MAMMO PROCEDURES Final Re sult from Last 3 Months or Most Recently Relevant to Health Maintenance Insurance [employer] OPEN ACCESS [facility] [id number] Care Teams Jetting Machine Operator Relationship Specialty Start Date End Date Almas Griffith MD PCP - General Family Medicine 01/21/24 Martin White MD 08/14/19
--- OUTSIDE RECORDS SUMMARY | 2024-08-03 07:19 | XMS_ITS | Referral Summary ---
Author Organization [facility] Address [address] [place] [address] Care Team Providers Care Machine Lay Out Worker Name Role Phone Martin White MD Unavailable [phone] Almas Griffith MD Primary Care Provider [phone] Encounters Date Type Department Care Team Description 07/22/2024 9:00 AM CDT - 07/22/2024 11:59 PM CDT Hospital Encounter [facility] 1 Breast [facility] [address] [facility] [address] [place] [address] Follow-up examination of abnormal mammogram Discharge [...] on file Legal Sex Female 7:17 PM OUTCOME ANALYST Gender Identity Not on file Sexual Orientation [...] cm (4' 11 ) 03/10/2013 9:37 AM OUTCOME ANALYST Body Mass Index - - Plan of [...] screening mammography in December. OVERALL FINAL ASSESSMENT: [id number] Electronically signed by: Romina Mcgovern M.D. Narrative [...] Romina Mcgovern M.D. LD: KAYCEE Report ID: [id number] [facility] Kenny Sinha MD IMG MAMMO PROCEDURES Final Re sult from Last 3 Months or Most Recently Relevant to Health Maintenance Insurance [employer] OPEN ACCESS [facility] [id number] Care Teams Machine Lay Out Worker Relationship Specialty Start Date End Date Almas Griffith MD PCP - General Family Medicine 01/21/24 Martin White MD 08/14/19
--- OUTSIDE RECORDS SUMMARY | 2024-08-03 07:19 | XMS_ITS | CONTINUITY OF CARE DOCUMENT ---
Author Name ramon, ramon Address Unknown Organization [facility] Address [address] [facility] [address] [place] [address] Phone [phone] Care Team Providers Care Welt Stitcher Name Role Phone Dar Steven MD Unavailable Dar Steven MD Unavailable PROBLEMS Condition Status Date Provider Notes HTN controlled completed - Dar johnson MD GERD active FRANCESCO HILL MD Obesity active Dar Steven MD HTN essential, hx of active Dar Steven MD Anxiety active Dar Steven MD ENCOUNTERS Date Type Provider Location Encounter Diag nosis - In-person encounter Office Visit Dar Steven MD [facility] HTN controlledObesityHTN essential, hx ofAnxiety - In-person encounter Office Visit FRANCESCO HILL MD [facility] - In-person encounter Office Visit FRANCESCO HILL MD [facility] GERD - In-person encounter Office Visit Hansa Mason [facility] - In-person encounter Office Visit Hansa [facility] - In-person encounter Office Visit [facility]a [facility] - In-person encounter Office Visit Hansa Mason [facility] VITAL SIGNS Date Observation Value Provider [...] Not Estab. platelet count 305 X10E3/UL LinkLogic [phone]/04/0 6 red blood cell distribution width 14.6 [...] 3.5-5.2 6 sodium, serum 144 mmol/L LinkLogic [phone]/04/0 6 urea nitrogen/creatinine ratio, serum 18 LinkLogic [...] Payer name Policy type / Coverage type [place] red constitution party ID [employer] OPEN ACCESS Other [id number] ADVANCE DIRECTIVES Name Date DISCUSSED - [...]
--- NOTE | 2024-08-03 08:18 | ED_ITS ---
HPI - General Adult General Chief complaint: Headache Stated complaint: migraine, left eye problems Time Seen by Provider: 08/03/24 06:56 History of Present Illness HPI narrative: 53-year-old female presents emergency department for evaluation for headache. Patient states headache started last night. Patient describes a left-sided headache with associated photosensitivity and blurred vision. Patient denies any falls or trauma. Patient denies any recent coughs colds or fevers. Patient states she does not typically have a history of migraines. Patient does have a history high blood pressure but blood pressure was controlled upon arrival emergency department. Related Data Allergies Allergy/AdvReac Type Severity Reaction Status Date / Time lisinopril Allergy Severe Swelling Verified 08/03/24 06:04 iodine Allergy Hives Verified 08/03/24 06:04 Review of Systems Review of Systems: All systems reviewed & are unremarkable except as noted in HPI and below PMFSH Past Medical History Medical History Hypertension Surgical History Surgical History Gastric bypass status for obesity Gastric Sleeve H/O: hysterectomy History of cholecystectomy Family History Family History Father No problems noted. Mother No problems noted. Daughter No problems noted. Social History Social History Social History: Patient is single. She does have to adult daughters. Never smoker. Occasional alcohol use. She is a full code. 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 Smoking status: Never smoker Alcohol intake: current Drinks per week: 3 Alcohol use details: Occasional alcohol Substance use: never Living arrangements: with family Occupation/Education: occupation Additional occupation/education comments: Dispatcher for [employer] Gender identity (if verbalized by the patient): Male Spiritual care concerns: No Agree to blood products: Yes Exam Narrative: APPEARANCE: Uncomfortable appearing HEAD: normocephalic, atraumatic. EYES: PERRLA/EOMI, conjunctivae clear. NOSE: Normal no drainage EARS:TMS clear with good light reflex. THROAT: Pharynx clear, no exudate. NECK: Supple. No adenopathy, no masses. RESPIRATORY: Airway patent, respirations nonlabored. Clear to auscultation bilaterally, no rales, rhonchi, wheezing. CARDIOVASCULAR: Regular rate and rhythm without murmurs rubs or gallops. ABDOMINAL: Soft, nontender, nondistended, normal bowel sounds MUSCULOSKELETAL: Moves all extremities. Strength/ROM intact, No edema, No calf tenderness. NEURO: Alert. Cranial nerves II through XII intact. Good gait. Good coordination SKIN: Warm, dry. Normal Color Course Vital Signs Vital signs: Vital Signs Temperature 98.0 F 08/03/24 06:02 Pulse Rate 74 08/03/24 06:02 Respiratory Rate 20 08/03/24 06:02 Blood Pressure 125/87 08/03/24 06:02 Pulse Oximetry 99 08/03/24 06:02 Oxygen Delivery Room Air 08/03/24 06:02 Temperature 98.0 F 08/03/24 06:02 Pulse Rate 73 08/03/24 06:51 Respiratory Rate 17 08/03/24 06:51 Blood Pressure 142/93 H 08/03/24 08:01 Pulse Oximetry 97 08/03/24 08:15 Oxygen Delivery Room Air 08/03/24 06:02 Medical Decision Making MDM Narrative Medical decision making narrative: 53-year-old female presented to the emergency department for evaluation for left-sided headache. Patient has a normal comprehensive neuro exam. Patient's head CT was negative. Patient was ordered medications for migraine. On re-evaluation patient states she does feel significantly improved. Patient still has a normal neuro exam. All questions concerns were addressed patient will be discharged to home with instructions for close outpatient follow-up. Differential Diagnosis Differential Diagnosis: Headache, subdural hematoma, subarachnoid hemorrhage, migraine Vital Signs Vital Signs: Vital Signs Temperature 98.0 F 08/03/24 06:02 Pulse Rate 74 08/03/24 06:02 Respiratory Rate 20 08/03/24 06:02 Blood Pressure 125/87 08/03/24 06:02 Pulse Oximetry 99 08/03/24 06:02 Oxygen Delivery Room Air 08/03/24 06:02 Temperature 98.0 F 08/03/24 06:02 Pulse Rate 73 08/03/24 06:51 Respiratory Rate 17 08/03/24 06:51 Blood Pressure 142/93 H 08/03/24 08:01 Pulse Oximetry 97 08/03/24 08:15 Oxygen Delivery Room Air 08/03/24 06:02 Imaging Data Radiologist's impression: Impressions Head CT 08/03/24 06:52 IMPRESSION: 1. No acute intracranial abnormality. 2: Mild sinus disease. Discharge Plan Discharge Clinical Impression: Headache Patient Disposition: Home Condition: Stable Instructions: Antibiotic Form, Migraine Headache (ED) Additional Instructions: Drink plenty of fluids. Tylenol and ibuprofen as needed for additional pain control. Have close follow-up with your primary care physician. If you have any worsening symptoms then please call or return to the emergency department. Patient Language: Kiswahili Prescriptions: No Action phenazopyridine 200 mg tablet 200 mg PO TID Qty: 6 0RF cephalexin 500 mg capsule 500 mg PO Q12H Qty: 10 0RF albuterol sulfate [Proventil HFA] 90 mcg/actuation Hfa Aerosol Inhaler 2 puff inhalation Q6H PRN (Reason: shortness of breath or wheezing) Qty: 6.7 0RF Follow-up/Referrals: UNKNOWN,DOCTOR [Primary Care Provider] -
[2024-08-03] MEDS: LACTATED RINGERS 1,000 ML 999 ML IV CONT (08:29)
[2024-08-03] MEDS: KETOROLAC 30 MG/ML VIAL (*BKC) IV PUSH (08:30)
[2024-08-03] MEDS: PROCHLORPERAZINE EDISYLATE 10 MG/2 ML VIAL IV PUSH (08:30)
[2024-08-03] MEDS: diphenhydrAMINE HCl INJ 50 MG/ML VIAL 25 MG IV PUSH (08:30)
== END 2024-08-03 09:25 | disposition home or self-care (01) ==
PROVIDERS: Emergency Provider Emergency Medicine
DX: R51.9 Headache, unspecified (principal); I10 Essential (primary) hypertension; Z98.84 Bariatric surgery status; Z90.710 Acquired absence of both cervix and uterus; Z90.49 Acquired absence of other specified parts of digestive tract; J32.9 Chronic sinusitis, unspecified
CPT/HCPCS: 70450; 96361; 96374; 96375; 99284; J0780; J1200; J1885; J7120